=== PATIENT | male | born 1990 | race Caucasian/White ===

== ENCOUNTER 2018-02-23 20:09 | Emergency (ER) | payer SELFPAY ==
--- NOTE | 2018-02-23 20:47 | ER ---
Nurse's Notes [facility] Name: Miller Mullen Age: 27 yrs Sex: Male : 1990 Arrival Date: 02/23/2018 Time: 20:11 Bed 23 Private MD: Diagnosis: Low back pain Presentation: 02/23 20:11 Presenting complaint: Patient states: he was helping his grandmother move yesterday and ak1 lifted something heavy causing left lower back pain. pt stated he left [facility] to come here tonight, denies being seen. pt stated he had someone drop him off here tonight. Transition of care: patient was not received from another setting of care. Onset of symptoms was February 22, 2018. Risk Assessment: Do you want to hurt yourself or someone else? Patient reports no desire to harm self or others. Initial Sepsis Screen: Does the patient have a suspected source of infection? No. Patient's initial sepsis screen is negative. Initial Sepsis Screen: Does the patient meet any 2 criteria? No. Patient's initial sepsis screen is negative. Care prior to arrival: None. 20:11 Method Of Arrival: Ambulatory ak1 20:11 Acuity: MT 4 ak1 Triage Assessment: 20:15 General: Appears in no apparent distress. Behavior is calm, cooperative. Pain: ak1 Complains of pain in lumbar area, left low back and right low back. EENT: No signs and/or symptoms were reported regarding the EENT system. Neuro: No deficits noted. Cardiovascular: No deficits noted. Respiratory: No deficits noted. GI: No signs and/or symptoms were reported involving the gastrointestinal system. : No signs and/or symptoms were reported regarding the genitourinary system. Derm: No signs and/or symptoms reported regarding the dermatologic system. Musculoskeletal: Reports pain in lower back. Historical: - Allergies: 20:17 Ultram; pt stated headache if he takes ultram; ak1 - Home Meds: 20:15 None [Active]; ak1 - PMHx: 20:15 None; ak1 - PSHx: 20:15 Ear Tubes; ak1 - Immunization history:: Adult Immunizations unknown. - Social history:: Smoking status: Patient uses tobacco products, smokes one-half pack cigarettes per day. - Ebola Screening: : No symptoms or risks identified at this time. Screenin:17 Abuse screen: Denies threats or abuse. Denies injuries from another. Nutritional ak1 screening: No deficits noted. Tuberculosis screening: No symptoms or risk factors identified. Fall Risk None identified. Assessment: 20:26 General: Appears distressed, uncomfortable, slender, well groomed, well developed, iw emaciated. Pain: Complains of pain in left leg and back and left low back. Neuro: Level of Consciousness is awake, alert, obeys commands, Oriented to person, place, time, situation, Appropriate for age. Cardiovascular: Patient's skin is warm and dry. Respiratory: Airway is patent Respiratory effort is even, unlabored, Respiratory pattern is regular, symmetrical. GI: No signs and/or symptoms were reported involving the gastrointestinal system. : No signs and/or symptoms were reported regarding the genitourinary system. EENT: No signs and/or symptoms were reported regarding the EENT system. Derm: No signs and/or symptoms reported regarding the dermatologic system. Musculoskeletal: Reports since yesterday. Injury Description: pt was lifting boxes while helping his grandmother move and injured his left lower back, pain shoots down left leg. Vital Signs: 20:16 BP 141 / 98; Pulse 92; Resp 16; Temp 98.8(O); Pulse Ox 99% on R/A; Weight 117.93 kg ak1 (R); Height 6 ft. 6 in. (198.12 cm) (R); Pain 10/10; 20:26 BP 148 / 98; Pulse 92; Resp 18; Pulse Ox 99% ; iw 20:16 Body Mass Index 30.05 (117.93 kg, 198.12 cm) ak1 ED Course: 20:11 Patient arrived in ED. ak1 20:15 Triage completed. ak1 20:16 Lilibeth Balderas FNP-C is PHCP. kb 20:16 Anderson Nunez MD is Attending Physician. kb 20:16 Arm band placed on Patient placed in an exam room, on a stretcher, Patient notified of ak1 wait time. 20:18 Tracey Tyler, SIENA is Primary Nurse. iw 21:24 No provider procedures requiring assistance completed. Patient did not have IV access mg2 during this emergency room visit. 21:25 Patient has correct armband on for positive identification. Pulse ox on. mg2 Administered Medications: 21:11 Drug: TORadol 60 mg Route: IM; Site: right gluteus; mg2 21:12 Follow up: Response: No adverse reaction; Medication administered at discharge. mg2 21:11 Drug: [place] 10 mg-325 mg 1 tabs Route: PO; mg2 21:12 Follow up: Response: No adverse reaction; Medication administered at discharge. mg2 Outcome: 20:46 Discharge ordered by MD. long 21:24 Discharged to home ambulatory. mg2 21:24 Condition: stable 21:24 Discharge instructions given to patient, Instructed on discharge instructions, follow up and referral plans. Demonstrated understanding of instructions, follow-up care, medications, Prescriptions given X 2. 21:25 Patient left the ED. mg2 Signatures: Lilibeth Baledras, DAIRY HELPER-C DAIRY HELPER-CkTracey Moyer RN RN iw Andree Morocho RN RN ak1 Ty Guadalupe RN RN mg2 Corrections: (The following items were deleted from the chart) 20:17 20:15 Allergies: No Known Allergies; ak1 ak1 21:26 21:19 Patient left the ED. iw mg2
--- NOTE | 2018-02-23 20:47 | EDPHYS ---
Physician Documentation [facility] Name: Miller Mullen Age: 27 yrs Sex: Male : 1990 Arrival Date: 02/23/2018 Time: 20:11 Bed 23 Private MD: ED Physician Anderson Nunez HPI: 02/23 20:37 This 27 yrs old Male presents to ER via Ambulatory with complaints of Low kb Back Pain. 20:37 The patient presents with pain that is acute. The symptoms are located in the left low kb back and left mid back. The pain radiates to the left leg. The problem was sustained when lifting heavy object. Onset: The symptoms/episode began/occurred yesterday. Modifying factors: The patient symptoms are alleviated by nothing, the patient symptoms are aggravated by any movement. Associated signs and symptoms: The patient has no apparent associated signs or symptoms. Severity of symptoms: At their worst the symptoms were moderate, in the emergency department the symptoms are unchanged. The patient has not experienced similar symptoms in the past. The patient has not recently seen a physician. Historical: - Allergies: 20:17 Ultram; pt stated headache if he takes ultram; ak1 - Home Meds: 20:15 None [Active]; ak1 - PMHx: 20:15 None; ak1 - PSHx: 20:15 Ear Tubes; ak1 - Immunization history:: Adult Immunizations unknown. - Social history:: Smoking status: Patient uses tobacco products, smokes one-half pack cigarettes per day. - Ebola Screening: : No symptoms or risks identified at this time. ROS: 20:39 Constitutional: Negative for fever, chills, and weight loss, Cardiovascular: Negative kb for chest pain, palpitations, and edema, Respiratory: Negative for shortness of breath, cough, wheezing, and pleuritic chest pain, Abdomen/GI: Negative for abdominal pain, nausea, vomiting, diarrhea, and constipation, : Negative for injury, bleeding, discharge, and swelling, MS/Extremity: Negative for injury and deformity, Skin: Negative for injury, rash, and discoloration, Neuro: Negative for headache, weakness, numbness, tingling, and seizure. 20:39 Back: Positive for pain at rest, pain with movement, of the left low back and left mid back. Exam: 20:44 Constitutional: This is a well developed, well nourished patient who is awake, alert, kb and in no acute distress. Head/Face: Normocephalic, atraumatic. Chest/axilla: Normal chest wall appearance and motion. Nontender with no deformity. No lesions are appreciated. Cardiovascular: Regular rate and rhythm with a normal S1 and S2. No gallops, murmurs, or rubs. Normal PMI, no JVD. No pulse deficits. Respiratory: Lungs have equal breath sounds bilaterally, clear to auscultation and percussion. No rales, rhonchi or wheezes noted. No increased work of breathing, no retractions or nasal flaring. Abdomen/GI: Soft, non-tender, with normal bowel sounds. No distension or tympany. No guarding or rebound. No evidence of tenderness throughout. Skin: Warm, dry with normal turgor. Normal color with no rashes, no lesions, and no evidence of cellulitis. MS/ Extremity: Pulses equal, no cyanosis. Neurovascular intact. Full, normal range of motion. Neuro: Awake and alert, GCS 15, oriented to person, place, time, and situation. Cranial nerves II-XII grossly intact. Motor strength 5/5 in all extremities. Sensory grossly intact. Cerebellar exam normal. Normal gait. 20:44 Back: pain, that is moderate, of the left low back and left mid back, ROM is painful. Vital Signs: 20:16 BP 141 / 98; Pulse 92; Resp 16; Temp 98.8(O); Pulse Ox 99% on R/A; Weight 117.93 kg ak1 (R); Height 6 ft. 6 in. (198.12 cm) (R); Pain 10/10; 20:26 BP 148 / 98; Pulse 92; Resp 18; Pulse Ox 99% ; iw 20:16 Body Mass Index 30.05 (117.93 kg, 198.12 cm) ak1 MDM: 20:18 Patient medically screened. kb 20:44 Data reviewed: vital signs, nurses notes. Data interpreted: Pulse oximetry: on room air kb is 99 %. Interpretation: normal. Counseling: I had a detailed discussion with the patient and/or guardian regarding: the historical points, exam findings, and any diagnostic results supporting the discharge/admit diagnosis, the need for outpatient follow up, a family practitioner, to return to the emergency department if symptoms worsen or persist or if there are any questions or concerns that arise at home. Administered Medications: 21:11 Drug: TORadol 60 mg Route: IM; Site: right gluteus; mg2 21:12 Follow up: Response: No adverse reaction; Medication administered at discharge. mg2 21:11 Drug: [place] 10 mg-325 mg 1 tabs Route: PO; mg2 21:12 Follow up: Response: No adverse reaction; Medication administered at discharge. mg2 Disposition: 02/24 06:43 Co-signature as Attending Physician, Anderson Nunez MD I agree with the assessment and tre plan of care. Disposition: 02/23/18 20:46 Discharged to Home. Impression: Low back pain. - Condition is Stable. - Discharge Instructions: Back Pain, Adult, [id number]. - Prescriptions for Cyclobenzaprine 10 mg Oral Tablet - take 1 tablet by ORAL route every 8 hours As needed; 21 tablet. Diclofenac Sodium 75 mg Oral Tablet, Delayed Release (E.C.) - take 1 tablet by ORAL route 2 times per day As needed; 30 tablet. - Medication Reconciliation Form, Thank You Letter, Antibiotic Education, Prescription Opioid Use form. - Follow up: Emergency Department; When: As needed; Reason: Worsening of condition. Follow up: Private Physician; When: 2 - 3 days; Reason: Recheck today's complaints, Continuance of care, Re-evaluation by your physician. Signatures: Lilibeth Balderas, PRODUCTION FINISHER-C PRODUCTION FINISHER-Anderson Broosk MD MD cha Williams, Irene RN SIENA iw Andree Morocho RN RN ak1 Ty Guadalupe RN RN mg2 Corrections: (The following items were deleted from the chart) 02/23 20:17 20:15 Allergies: No Known Allergies; ak1 ak1 20:44 20:37 The symptoms are located in the lumbar area and left low back, kb kb 21:19 20:46 02/23/2018 20:46 Discharged to Home. Impression: Low back pain. Condition is iw Stable. Forms are Medication Reconciliation Form, Thank You Letter, Antibiotic Education, Prescription Opioid Use. Follow up: Emergency Department; When: As needed; Reason: Worsening of condition. Follow up: Private Physician; When: 2 - 3 days; Reason: Recheck today's complaints, Continuance of care, Re-evaluation by your physician. kb
[2018-02-23] MEDS ORDERED: HYDROCODONE/APAP 10/325 TAB ONE (20:58)
[2018-02-23] MEDS ORDERED: KETOROLAC 30 MG/ML INJ ONE (20:58)
== END 2018-02-23 21:19 | disposition home or self-care (01) ==
LOC: ER 20:09
DX: M54.5 Low back pain (principal); F17.210 Nicotine dependence, cigarettes, uncomplicated
CPT/HCPCS: 96372; 99283

== ENCOUNTER 2019-11-10 18:16 | Emergency (ER) | payer OTHER, SELFPAY ==
--- OUTSIDE RECORDS SUMMARY | 2019-11-10 18:18 | XMS REPORT | Continuity of Care Document ---
:1990 Author Organization [facility] t Address [address] [place] [place] [address] Care Team Providers Name Role Phone Singer PAGE Attending Clinician Dc WREN, M Attending Clinician Unavailable Problems This patient has no known problems. Allergies, Adverse Reactions, Alerts This patient has no known allergies or adverse reactions. Medications This patient has no known medications. Procedures This patient has no known procedures. Encounters Start End Encounter Admission Attending Care Care Encounter Source Date/Time Date/Time Type Type Clinicians Facility Department ID 2019-09-24 2019-09-24 Emergency EVANS Flowers [id number] 15:40:58 19:38:00 Oswaldo Yeh [id number] [place] [id number] [place] [id number] 2019-09-24 2019-09-24 Telephone YENNIFER Irwin [id number] 00:00:00 00:00:00 Dorcas CAPUTO [id number] [facility] [id number] Results This patient has no known results.
--- OUTSIDE RECORDS SUMMARY | 2019-11-10 18:19 | XMS REPORT | Summary of Care ---
:1990 Author Organization [facility] - Health Address [address] [place], [place] [id number] Care Team Providers Name Role Phone Harinder Shea Primary Care Provider Reason for Visit Reason Comments Anxiety Medication Problem Auth/Cert Status Reason Specialty Diagnoses / Referred By Referred To Procedures Contact Contact Emergency Medicine [facility] Em ergency Dept [address] [place] [address] [place] [phone] Fax: Encounter Details Date Type Department Care Team Description 09/24/2019 Emergency ADC-Emergency Oswaldo Flowers DO Toxic effect of other Department [address] [place] [address]. ingested (parts of) [address] [place] [address] RT 0711 plant(s), accidental [place] [phone] [place] [phone] (unintentional), initial encounter (Primary Dx) Allergies Active Allergy Reactions Severity Noted Date Comments Dextromethorphan Hives 10/17/2018 documented as of this encounter (statuses as of 09/24/2019) Medications Medication Sig Dispensed Refills Start Date End Date Status azithromycin 250 mg Take 1 tablet by 1 Package 0 10/06/2018 Active tabletIndications: mouth Bronchitis SEE-INSTRUCTIONS. Take 500 mg day 1, then 250 mg days 2 to 5. albuterol 90 Inhale 2 Puffs 8.5 g 0 10/06/2018 A ctive mcg/actuation every 6 (six) inhalerIndications: hours as needed Bronchitis for Wheezing or Shortness of Breath. traMADOL (ULTRAM) 50 Take 1 tablet by 9 tablet 0 10/17/2018 Active mg tabletIndications: mouth every 8 Injury of right knee, (eight) hours as leg ankle and foot, needed for Pain initial encounter, (scale 4-6). Sprain of right ankle, unspecified ligament, initial encounter documented as of this encounter (statuses as of 09/24/2019) Active Problems Problem Noted Date Toxic effect of other ingested (parts of) plant(s), un determined, initial 09/24/2019 encounter Fever 01/15/2015 documented as of this encounter (statuses as of 09/24/2019) Social History Tobacco Use Types Packs/Day Years Used Date Never Smoker Smokeless Tobacco: Former User Alcohol Use Drinks/Week oz/Week Comments No 0 Standard drinks or equivalent 0.0 Sex Assigned at Date Recorded Not on file Job Start Date Occupation Industry Not on file Not on file Not on file Travel History Travel Start Travel End No recent travel history available. COVID-19 Exposure Response Date Recorded In the last month, have you been in contact with No / Unsure 09/24/2019 3:31 PM CDT someone who was confirmed or suspected to have Coronavirus / COVID-19? documented as of this encounter Last Filed Vital Signs Vital Sign Reading Time Taken Comments Blood Pressure 143/98 09/24/2019 6:00 PM CDT Pulse 101 09/24/2019 6:00 PM CDT Temperature 36.9 C (98.5 F) 09/24/2019 3:29 PM CDT Respiratory Rate 16 09/24/2019 6:00 PM CDT Oxygen Saturation 96% 09/24/2019 6:00 PM CDT Inhaled Oxygen Concentration - - Weight 125.2 kg (276 lb) 09/24/2019 3:29 PM CDT Height 195.6 cm (6' 5") 09/24/2019 3:29 PM CDT Body Mass Index 32.73 09/24/2019 3:29 PM CDT documented in this encounter Plan of Treatment Name Type Priority Associated Diagnoses Date/Ti me CORONAVIRUS COVID-19 LAB Routine Toxic effect of othe r 09/24/2019 7:07 PM TESTING ingested (parts of) CDT plant(s), accidental (unintentional), initial encounter Name Type Priority Associated Diagnoses Order S chedule CORONAVIRUS COVID-19 LAB Routine Toxic effect of othe r ONCE for 1 Occurrences TESTING ingested (parts of) starting 09/24/2019 plant(s), accidental until 0 09/24/2019 (unintentional), initial encounter Health Maintenance Due Date Last Done Comments VARICELLA VACCINES (1 of 2 - 13+ 2005 2-dose series) DTaP,Tdap,and Td Vaccines (1 - 2011 Tdap) INFLUENZA VACCINE (#1) 2019 HPV VACCINES Aged Out No longer eligib le based on patient's age to complete this topic PNEUMOCOCCAL 0-64 YEARS COMBINED Aged Out No longer eligible based on SERIES patient's age to complete this topic documented as of this encounter Procedures Procedure Name Priority Date/Time Associated Comments Diagnosis ADC / LCC - DRUG STAT 09/24/2019 7:07 Toxic effect of Resu lts for this SCREEN TRIAGE PM CDT other ingested procedure ar e in (parts of) the results plant(s), section. accidental (unintentional), initial encounter URINALYSIS STAT 09/24/2019 7:07 Toxic effect of Results for this PM CDT other ingested procedure are in (parts of) the results plant(s), section. accidental (unintentional), initial encounter CBC WITH DIFFERENTIAL STAT 09/24/2019 4:20 Toxic effect of Results for this PM CDT other ingested procedure are in (parts of) the results plant(s), section. accidental (unintentional), initial encounter CBC WITH DIFFERENTIAL STAT 09/24/2019 4:20 Toxic effect of Results for this PM CDT other ingested procedure are in (parts of) the results plant(s), section. accidental (unintentional), initial encounter COMP. METABOLIC PANEL STAT 09/24/2019 4:20 Toxic effect of Results for this (21506) PM CDT other ingested procedure are in (parts of) the results plant(s), section. accidental (unintentional), initial encounter documented in this encounter Results ADC / LCC - DRUG SCREEN TRIAGE (09/24/2019 7:07 PM CDT) BENZO U Presumptive Negative [facility] Positive (A) [facility] BELKIS U Negative Negative [facility] AMPHET Negative Negative [facility] THC Negative Negative [facility] METHADONE Negative Negative [facility] Meth U Negative Negative [facility] OPIATES Negative Negative [facility] Cocaine Metabolite Negative Negative [facility] PROPOXY Negative Negative [facility] Tric U Negative Negative [facility] PCP Negative Negative [facility] OXYCOD Negative Negative [facility] Specimen Urine - URINE, CLEAN CATCH Narrative Performed At Urine Drug Cutoff Ranges [facility] Benzodiazepines: 150 ng/mL Barbiturates: 200 ng/mL Amphetamine: 500 ng/mL Cannabinoids: 50 ng/mL Methadone: 200 ng/mL Methamphetamine: 500 ng/mL Opiates: 100 ng/mL or 2000 ng/mL Cocaine: 150 ng/mL Propoxyphene: 300 ng/mL Tricyclics: 300 ng/mL Oxycodone: 100 ng/mL PCP: 25 ng/mL The results are to be used only for medical (i.e., treatment) purposes. Unconfirmed screening results must not be used for non-medical purposes (e.g., employment testing, legal testing). Performing Organization Address [facility] [place], [place] Phone Number [facility] CLIA: [id number], [address] [place] [address] URINALYSIS (09/24/2019 7:07 PM CDT) Pathologist Sig nature APPEARANCE Clear Clear [facility] COLOR Straw (A) Yellow [facility] PH 6.0 4.8 - 8.0 [facility] SP GRAVITY 1.006 1.003 - 1.030 [facility] GLU U QUAL Normal Normal [facility] BLOOD Negative Negative [facility] KETONES 5 mg/dL (A) Negative [facility] PROTEIN Negative Negative [facility] UROBILIN Normal Normal [facility] BILIRUBIN Negative Negative [facility] NITRITE Negative Negative [facility] LEUK EVELIO Negative Negative [facility] RBC/HPF <1 0 - 3 HPF [facility] WBC/HPF <1 0 - 5 HPF [facility] BACTERIA Negative Negative [facility] SQ EPITH <1 HPF [facility] Specimen Urine - URINE, CLEAN CATCH Performing Organization Address [facility] [place], [place] Phone Number [facility] CLIA: [id number], [address] [place] [address] CBC WITH DIFFERENTIAL (09/24/2019 4:20 PM CDT) [facility] WBC 5.88 4.20 - 10.70 [facility] 10*3/L H[facility] RBC 5.01 4.26 - 5.52 [facility] 10*6/L [facility] LABOR[facility]ORY HGB 15.4 12.2 - 16.4 [facility] g/dL [facility] HCT 43.8 38.4 - 49.3 % [facility] MCV 87.4 81.7 - 95.6 fL [facility] MCH 30.7 26.1 - 32.7 pg [facility] MCHC 35.2 (H) 31.2 - 35.0 [facility] g/dL [facility] LAB[facility] RDW-SD 40.9 38.5 - 51.6 fL [facility] RDW-CV 12.8 12.1 - 15.4 % [facility] PLT 266 150 - 328 [facility] 10*3/L [facility] LABORATORY MPV 10.4 9.8 - 13.0 fL [facility] NRBC/100 WBC 0.0 0.0 - 10.0 /100 [facility] WBCs [facility] LABORATORY NRBC x10^3 <0.01 10*3/L [facility] GRAN MAT (NEUT) % 54.1 % [facility] IMM GRAN % 0.20 % [facility] LYMPH % 35.5 % [facility] MONO % 9.2 % [facility] EOS % 0.7 % [facility] BASO % 0.3 % [facility] GRAN MAT x10^3(ANC) 3.18 1.99 - 6.95 [facility] 10*3/uL HOSPITAL LAB[facility] IMM GRAN x10^3 <0.03 0.00 - 0.06 [facility] 10*3/uL [facility] LYMPH x10^3 2.09 1.09 - 3.23 [facility] 10*3/uL [facility] MONO x10^3 0.54 0.36 - 1.02 [facility] 10*3/uL H[facility]ITAL [facility] EOS x10^3 0.04 (L) 0.06 - 0.53 [facility] 10*3/uL [facility] LABORATORY BASO x10^3 <0.03 0.01 - 0.09 [facility] 10*3/uL [facility] LABORATORY Specimen Blood - VENOUS Performing Organization Address City/State/Zipcode Phone Number [facility] CLIA: [id number], [address] [place] [address] COMP. METABOLIC PANEL (67454) (09/24/2019 4:20 PM CDT) [facility] NA 141 135 - 145 [facility] mmol/L [facility] LABORATORY K 3.7 3.5 - 5.0 [facility] mmol/L [facility] LABORATORY CL 106 98 - 108 mmol/L [facility] CO2 TOTAL 24 23 - 31 mmol/L [facility] AGAP 11 2 - 16 [facility] BUN 16 7 - 23 mg/dL [facility] GLUCOSE 128 (H) 70 - 110 mg/dL [facility] CREATININE 0.91 0.60 - 1.25 [facility] mg/dL [facility] LABORATORY TOTAL BILI 0.5 0.1 - 1.1 mg/dL [facility] CALCIUM 9.9 8.6 - 10.6 [facility] mg/dL [facility] LABORATORY T PROTEIN 8.2 6.3 - 8.2 g/dL [facility] ALBUMIN 5.0 3.5 - 5.0 g/dL [facility] ALK PHOS 78 34 - 122 U/L [facility] ALTv 35 5 - 50 U/L [facility] AST(SGOT) 30 13 - 40 U/L [facility] eGFR Calculation 99.9 mL/min/1.73m2 [facility] ([facility] LABORATORY [place]) eGFR Calculation 121.1 mL/min/1.73m2 [facility] () [facility] LABORATORY Specimen Blood - VENOUS Narrative Performed At Association of Glomerular Filtration Rate (GFR) [facility] LAB[facility] and Staging of Kidney Disease* + + +- + | GFR (mL/min/1.73 m2) | With Kidney Damage | Without Kidney Damage + + +- + | >90 | Stage one | Normal + + +- + | 60-89 | Stage two | Decreased GFR + + +- + | 30-59 | Stage three | Stage three + + +- + | 15-29 | Stage four | Stage four + + +- + | <15 (or dialysis) | Stage five | Stage five + + +- + *Each stage assumes the associated GFR level has been in effect for at least three months. Stages 1 to 5, with or without kidney disease, indicate chronic kidney disease. Notes: Determination of stages one and two (with eGFR >59mL/min/1.73 m2) requires estimation of kidney damage for at least three months as defined by structural or functional abnormalities of the kidney, manifested by either: Pathological abnormalities or Markers of kidney damage (including abnormalities in the composition of the blood or urine or abnormalities in imaging tests). Performing Organization Address City/State/Zipcode Phone Number [facility] CLIA: [id number], [address] [place], [place] [address] [facility] [address] documented in this encounter Visit Diagnoses Diagnosis Toxic effect of other ingested (parts of ) plant(s), accidental (unintentional), initial encounter - Primary Toxic effect of other ingested (parts of ) plant(s), undetermined, initial encounter documented in this encounter Administered Medications Medication Order MAR Action Action Date Dose Rate Site LORazepam (ATIVAN) injection 1 mg Given 09/24/2019 4:24 PM CDT 1 mg 1 mg, Slow IV Push, ONCE, 1 dose, [facility] 09/24/19 at 1700, STAT LORazepam (ATIVAN) injection 1 mg Given 09/24/2019 6:43 PM CDT 1 mg 1 mg, Slow IV Push, ONCE, 1 dose, [facility] 09/24/19 at 1930, STAT LORazepam (ATIVAN) injection 2 mg Given 09/24/2019 5:00 PM CDT 2 mg 2 mg, Slow IV Push, ONCE, 1 dose, [facility] 09/24/19 at 1800, STAT LORazepam (ATIVAN) injection 2 mg Given 09/24/2019 5:53 PM CDT 2 mg 2 mg, Slow IV Push, ONCE, 1 dose, [facility] 09/24/19 at 1900, STAT NaCl 0.9% (NS) bolus infusion New Bag 09/24/2019 4:19 PM CDT 1,000 mL 999 mL/hr 1,000 mL at 999 mL/hr, 1,000 mL, IV Piggyback, ONCE, 1 dose, [facility] 09/24/19 at 1700, STAT documented in this encounter documented as of this encounter Advance Directives Name Relationship Healthcare Agent Communication Relationship Lacy Ken Mother Primary healthcare agent
--- OUTSIDE RECORDS SUMMARY | 2019-11-10 18:19 | XMS REPORT | Summary of Care ---
:1990 Author Organization [facility] Address [address] [place] [address] Care Team Providers Name Role Phone ShabbirHarinder Primary Care Provider Reason for Visit Reason Comments Results covid 19 test results Encounter Details Date Type Department Care Team Description 09/24/2019 Telephone [facility] Dorcas Irwin, Results (covid [address] [place] [address] RN results) [address] [address] [place] [address] Allergies Active Allergy Reactions Severity Noted Date [...] of this encounter Last Filed Vital Signs Not on filedocumented in this encounter Plan of Treatment Health Maintenance Due Date Last Done Comments VARICELLA VACCINES (1 of 2 - 1993 2-dose childhood series) DTaP,Tdap,and Td Vaccines (1 - 2003 Tdap) INFLUENZA VACCINE (#1) 2019 PNEUMOCOCCAL 0-64 YEARS COMBINED Aged Out No longer eligible based on SERIES patient's age to complete this topic documented as of this encounter Results Not on filedocumented in this encounter Insurance Payer Benefit Plan / Group Subscriber ID Effective Dates Phone Address Type AETNA AETNA CHOICE POS [place] [id number] 2018-Present POS documented as of this encounter Advance Directives Name Relationship Healthcare Agent Communication Relationship Lacy Ken Mother Primary healthcare agent
[2019-11-10] MEDS ORDERED: NA CHLORIDE 0.9% 50 ML IV ONE (19:24)
[2019-11-10] MEDS ORDERED: DIPHENHYDRAMINE 50 MG/ML VIAL ONE (19:24)
[2019-11-10] MEDS ORDERED: KETOROLAC 30 MG/ML INJ ONE (19:24)
[2019-11-10] MEDS ORDERED: METOCLOPRAMIDE 10 MG/2mL INJ ONE (19:24)
--- NOTE | 2019-11-10 19:35 | RAD REPORT ---
EXAM DESCRIPTION: CT - Head Brain Wo Cont - 11/10/2019 7:06 pm CLINICAL HISTORY: HEADACHE Headache, drowsiness COMPARISON: Head Brain Wo Cont dated 09/19/2015 TECHNIQUE: All CT scans are performed using dose optimization technique as appropriate and may inclu de automated exposure control or mA/KV adjustment according to patient size. FINDINGS: No intracranial hemorrhage, hydrocephalus or extra-axial fluid collection.No areas of brai n edema or evidence of midline shift. Mild polypoid mucosal thickening of the inferior maxillary antra. The paranasal sinuses and mastoids otherwise clear. The calvarium is intact. IMPRESSION: No acute intracranial abnormality.
[2019-11-10 21:24] LABS: Urine Blood TRACE (NEG); Urine Glucose NEGATIVE (NEG); Urine Protein 1+ (NEG); Urine Specific Gravity >1.030 (1.005-1.030); Urine pH 6.5 (5.0-7.0)
--- NOTE | 2019-11-10 21:39 | ER ---
Nurse's Notes [facility] Name: Miller Mullen Age: 29 yrs Sex: Male : 1990 Arrival Date: 11/10/2019 Time: 18:19 Bed 27 Private MD: Diagnosis: Acute sinusitis;Epistaxis Presentation: 11/09 18:22 Chief complaint: Patient states: CABAN with nose bleeds int for 3 days. Started having N/V ll1 dizziness since 0300 today. No thermometer at home. Coronavirus screen: Proceed with normal triage. Patient denies a cough. Patient denies shortness of breath or difficulty breathing. Patient denies measured and/or subjective temperature greater than 100.4F prior to today's visit. Patient denies travel on a cruise ship or to a country the [facility] currently lists as an affected area. Patient denies contact with known and/or suspected case of COVID-19. Ebola Screen: Patient denies travel to an Ebola-affected area in the 21 days before illness onset. Initial Sepsis Screen: Does the patient meet any 2 criteria? No. Patient's initial sepsis screen is negative. Risk Assessment: Do you want to hurt yourself or someone else? Patient reports no desire to harm self or others. Onset of symptoms was November 07, 2019. 18:22 Method Of Arrival: Ambulatory ll1 18:22 Acuity: MT 3 ll1 18:30 Initial Sepsis Screen: Does the patient have a suspected source of infection? No. vc Patient's initial sepsis screen is negative. Triage Assessment: 18:30 Headache History: The patient has had previous headaches and this one is more severe vc than previous episodes. General: Appears in no apparent distress. Behavior is calm, cooperative, appropriate for age. Pain: Complains of pain in forehead, right eye, left eye, right yazdanism and left yazdanism Pain currently is 8 out of 10 on a pain scale. Quality of pain is described as sharp, stabbing, Pain began 2-3 days ago. Also complains of nausea. 18:30 Neuro: Level of Consciousness is awake, alert, obeys commands, Oriented to person, vc place, time, situation, Appropriate for age. Historical: - Allergies: 18:25 Ultram; pt stated headache if he takes ultram; ll1 - PSHx: 18:25 Ear Tubes; ll1 - Immunization history:: Adult Immunizations up to date. - Social history:: Smoking status: Patient denies any tobacco usage or history of. Patient/guardian denies using alcohol, street drugs, tobacco products. Screenin:30 Abuse screen: Denies threats or abuse. Nutritional screening: No deficits noted. vc Tuberculosis screening: No symptoms or risk factors identified. Fall Risk None identified. Assessment: 18:30 General: Appears in no apparent distress. uncomfortable, Behavior is calm, cooperative, vc appropriate for age. Pain: Complains of pain in left yazdanism and right yazdanism and left eye and right eye and forehead. Neuro: Level of Consciousness is awake, alert, obeys commands, Oriented to person, place, time, situation, Appropriate for age. Cardiovascular: Capillary refill < 3 seconds Patient's skin is warm and dry. Respiratory: Airway is patent Respiratory effort is even, unlabored, Respiratory pattern is regular, symmetrical. GI: Reports nausea, vomiting. : No signs and/or symptoms were reported regarding the genitourinary system. Derm: No signs and/or symptoms reported regarding the dermatologic system. 19:30 Reassessment: Patient appears in no apparent distress at this time. Patient and/or vc family updated on plan of care and expected duration. Pain level reassessed. Patient states symptoms have not improved. 20:30 Reassessment: Patient appears in no apparent distress at this time. Patient and/or vc family updated on plan of care and expected duration. Pain level reassessed. Patient states feeling better. Patient states symptoms have improved. 21:14 Reassessment: Patient appears in no apparent distress at this time. Patient and/or vc family updated on plan of care and expected duration. Pain level reassessed. Patient states feeling better. 21:45 Reassessment: Patient discharge pending shot time. vc 22:00 Reassessment: Patient appears in no apparent distress at this time. Patient and/or vc family updated on plan of care and expected duration. Pain level reassessed. Patient denies pain at this time. Patient states feeling better. Patient states symptoms have improved. Vital Signs: 18:22 Pulse 75; Resp 18; Temp 98.0; Pulse Ox 97% ; Pain 8/10; ll1 21:30 BP 127 / 98; Pulse 75; Resp 18; Pulse Ox 99% on R/A; vc ED Course: 18:19 Patient arrived in ED. ag5 18:24 Triage completed. ll1 18:25 Arm band placed on Patient placed in an exam room, on a stretcher. ll1 18:30 Patient has correct armband on for positive identification. Bed in low position. Call vc light in reach. Pulse ox on. NIBP on. 18:35 Carolyn Guillen RN is Primary Nurse. vc 18:42 Rasheed Recinos NP is PHCP. pm1 18:42 Anderson Nunez MD is Attending Physician. pm1 19:04 CT Head Brain wo Cont In Process Unspecified. EDMS 22:05 No provider procedures requiring assistance completed. IV discontinued, intact, vc bleeding controlled, No redness/swelling at site. Pressure dressing applied. Administered Medications: 19:34 Drug: Reglan 10 mg Route: IVP; Site: right antecubital; vc 21:30 Follow up: Response: No adverse reaction; Marked relief of symptoms vc 19:34 Drug: Benadryl 25 mg Route: IVP; Site: right antecubital; vc 23:06 Follow up: Response: No adverse reaction vc 19:34 Drug: TORadol 30 mg Route: IVP; Site: right antecubital; vc 21:30 Follow up: Response: No adverse reaction; Marked relief of symptoms vc 21:45 Drug: Rocephin 1 grams Route: IV; Rate: calculated rate; Site: right antecubital; vc 21:48 Follow up: IV Status: Completed infusion; IV Intake: 10ml vc Intake: 21:48 IV: 10ml; Total: 10ml. vc Outcome: 21:38 Discharge ordered by . pm1 22:05 Discharged to home ambulatory, with family. vc 22:05 Condition: good 22:05 Discharge instructions given to patient, Instructed on discharge instructions, follow up and referral plans. medication usage, Demonstrated understanding of instructions, follow-up care, medications, Prescriptions given X 3. 22:06 Patient left the ED. vc Signatures: Dispatcher [employer] EDMS Rasheed Recinos, [employer] RECEPTIONIST pm1 Fareed Garsia ag5 Carolyn Guillen RN RN vc Christnia Miller RN RN ll1
--- NOTE | 2019-11-10 21:39 | EDPHYS ---
Physician Documentation [facility] Name: Milelr Mullen Age: 29 yrs Sex: Male : 1990 Arrival Date: 11/10/2019 Time: 18:19 Bed 27 Private MD: ED Physician Anderson Nunez HPI: 11/09 18:52 This 29 yrs old Male presents to ER via Ambulatory with complaints of Nose pm1 Bleed, Headache, Dizziness, Nausea/Vomiting. 18:52 The patient presents with a nose bleed, causative factors include: previous HX of pm1 nosebleeds, as a child and the bleeding resolved prior to arrival, left nare. Onset: The symptoms/episode began/occurred 3 day(s) ago. Modifying factors: The symptoms are alleviated by pressure, the symptoms are aggravated by nothing. Associated signs and symptoms: Pertinent positives: Headache for the past 3 days. Nausea, vomiting, and dizziness today at 0300. Severity of symptoms: in the emergency department the symptoms are worse Pain is currently a 8 / 10. The patient has not recently seen a physician. Patient also reports dark urine today. Historical: - Allergies: 18:25 Ultram; pt stated headache if he takes ultram; ll1 - PSHx: 18:25 Ear Tubes; ll1 - Immunization history:: Adult Immunizations up to date. - Social history:: Smoking status: Patient denies any tobacco usage or history of. Patient/guardian denies using alcohol, street drugs, tobacco products. ROS: 18:52 Constitutional: Negative for fever, chills, and weight loss, Eyes: Negative for injury, pm1 pain, redness, and discharge. 18:52 Neck: Negative for injury, pain, and swelling, Cardiovascular: Negative for chest pain, palpitations, and edema, Respiratory: Negative for shortness of breath, cough, wheezing, and pleuritic chest pain. 18:52 Back: Negative for injury and pain, MS/Extremity: Negative for injury and deformity. 18:52 Skin: Negative for injury, rash, and discoloration. 18:52 ENT: Positive for nose bleed, sinus congestion, sinus pain, Negative for ear pain, sore throat, dental pain, difficulty swallowing, difficulty handling secretions, hoarseness. 18:52 Abdomen/GI: Positive for nausea and vomiting, Negative for abdominal pain, diarrhea, constipation. 18:52 : Positive for Dark urine, Negative for flank pain, burning with urination, difficulty urinating. 18:52 Neuro: Positive for dizziness, headache, Negative for altered mental status, numbness, tingling, weakness. Exam: 18:52 Constitutional: This is a well developed, well nourished patient who is awake, alert, pm1 and in no acute distress. Eyes: Pupils equal round and reactive to light, extra-ocular motions intact. Lids and lashes normal. Conjunctiva and sclera are non-icteric and not injected. Cornea within normal limits. Periorbital areas with no swelling, redness, or edema. 18:52 Neck: Trachea midline, no thyromegaly or masses palpated, and no cervical lymphadenopathy. Supple, full range of motion without nuchal rigidity, or vertebral point tenderness. No Meningismus. Chest/axilla: Normal chest wall appearance and motion. Nontender with no deformity. No lesions are appreciated. 18:52 Back: No spinal tenderness. No costovertebral tenderness. Full range of motion. Skin: Warm, dry with normal turgor. Normal color with no rashes, no lesions, and no evidence of cellulitis. MS/ Extremity: Pulses equal, no cyanosis. Neurovascular intact. Full, normal range of motion. 18:52 Head/face: Sinus tenderness, that is mild, is located over the left frontal sinus and left maxillary sinus. 18:52 ENT: External ear(s): are unremarkable, Ear canal(s): are normal, TM's: are normal, Nose: Nasal mucosa: edematous, erythematous, left nostril, bleeding, is not appreciated, is noted from both nares. 18:52 Cardiovascular: Exam negative for acute changes, Rate: normal, Rhythm: regular, Pulses: no pulse deficits are appreciated. 18:52 Respiratory: Exam negative for acute changes, respiratory distress, shortness of breath. 18:52 Abdomen/GI: Exam negative for acute changes, Inspection: abdomen appears normal, Palpation: abdomen is soft and non-tender, in all quadrants, mass, is not appreciated, rebound tenderness, is not appreciated. 18:52 Neuro: Exam negative for acute changes, Orientation: is normal, Mentation: is normal, Cranial nerves: grossly normal, Cerebellar function: normal finger to nose testing, Motor: is normal, moves all fours, Sensation: is normal, no obvious gross deficits. Vital Signs: 18:22 Pulse 75; Resp 18; Temp 98.0; Pulse Ox 97% ; Pain 8/10; ll1 21:30 BP 127 / 98; Pulse 75; Resp 18; Pulse Ox 99% on R/A; vc MDM: 18:42 Patient medically screened. pm1 21:05 Data reviewed: vital signs. Data interpreted: Pulse oximetry: on room air is 97 %. pm1 Interpretation: normal. 21:37 Counseling: I had a detailed discussion with the patient and/or guardian regarding: the pm1 historical points, exam findings, and any diagnostic results supporting the discharge/admit diagnosis, lab results, radiology results, the need for outpatient follow up, to return to the emergency department if symptoms worsen or persist or if there are any questions or concerns that arise at home. 21:57 Medication response: marked improvement in symptoms with medications given in the ER. pm1 Therefore will discharge to home for follow up with ENT. 21:57 ED course: CT positive for sinusitis, therefore with treat with abx therapy. pm1 11/09 21:03 Order name: Urine Dipstick--Ancillary (enter results); Complete Time: 21:37 sg 11/09 18:52 Order name: CT Head Brain wo Cont; Complete Time: 19:45 pm1 11/09 18:52 Order name: IV Saline Lock; Complete Time: 19:34 pm1 11/09 18:52 Order name: Urine Dipstick-Ancillary (obtain specimen); Complete Time: 21:02 pm1 Administered Medications: 19:34 Drug: Reglan 10 mg Route: IVP; Site: right antecubital; vc 21:30 Follow up: Response: No adverse reaction; Marked relief of symptoms vc 19:34 Drug: Benadryl 25 mg Route: IVP; Site: right antecubital; vc 23:06 Follow up: Response: No adverse reaction vc 19:34 Drug: TORadol 30 mg Route: IVP; Site: right antecubital; vc 21:30 Follow up: Response: No adverse reaction; Marked relief of symptoms vc 21:45 Drug: Rocephin 1 grams Route: IV; Rate: calculated rate; Site: right antecubital; vc 21:48 Follow up: IV Status: Completed infusion; IV Intake: 10ml vc Disposition: 11/10 05:32 Co-signature as Attending Physician, Anderson Nunez MD I agree with the assessment and tre plan of care. Disposition: 11/10/19 21:38 Discharged to Home. Impression: Acute sinusitis, Epistaxis. - Condition is Stable. - Discharge Instructions: Nosebleed, Adult, Sinusitis, Adult. - Prescriptions for Augmentin 875- 125 mg Oral Tablet - take 1 tablet by ORAL route every 12 hours for 10 days; 20 tablet. Zyrtec- D 5-120 mg Oral Tablet Sustained Release 12 hr - take 1 tablet by ORAL route every 12 hours As needed; 20 tablet. Zofran ODT 4 mg Oral tablet,disintegrating - place 1 tablet by TRANSLINGUAL route every 8 hours As needed; 10 tablet. - Medication Reconciliation Form, Thank You Letter, Antibiotic Education, Prescription Opioid Use form. - Work release form (11/11/19 13:54). ss - Follow up: Emergency Department; When: As needed; Reason: Worsening of condition. Follow up: Private Physician; When: 2 - 3 days; Reason: Recheck today's complaints, Continuance of care, Re-evaluation by your physician. - Problem is new. - Symptoms have improved. Signatures: Dispatcher [employer] EDMS Anderson Nunez MD MD cha Marinas, Patrick, TRAINING CONSULTANT TRAINING CONSULTANT pm1 Carolyn Guillen RN RN Christina Miller RN RN ll1 Kalyn Eldridge RN ss Corrections: (The following items were deleted from the chart) 11/09 22:06 21:38 11/10/2019 21:38 Discharged to Home. Impression: Acute sinusitis; Epistaxis. vc Condition is Stable. Forms are Medication Reconciliation Form, Thank You Letter, Antibiotic Education, Prescription Opioid Use. Follow up: Emergency Department; When: As needed; Reason: Worsening of condition. Follow up: Private Physician; When: 2 - 3 days; Reason: Recheck today's complaints, Continuance of care, Re-evaluation by your physician. Problem is new. Symptoms have improved. pm1
[2019-11-10] MEDS ORDERED: CEFTRIAXONE/SWI 1gm 1 GM/10 ML SYR ONE (21:51)
[2019-11-10 22:16] VITALS: TEMP 98
[2019-11-10 22:17] VITALS: BP 127/98; O2SAT 99
== END 2019-11-10 22:06 | disposition home or self-care (01) ==
LOC: ER 18:16
DX: J01.90 Acute sinusitis, unspecified (principal)
CPT/HCPCS: 81003; 70450; 96375; 96374; 99284; J2765; J1200; J0696

== ENCOUNTER 2020-07-29 17:34 | Emergency (ER) | payer SELFPAY ==
--- OUTSIDE RECORDS SUMMARY | 2020-07-29 17:37 | XMS REPORT | Continuity of Care Document ---
:1990 Author Organization [facility] t Address [address] [place] [address] Care Team Providers Name Role Phone Zoraida Summers MD Attending Clinician Tyrese Hoyos Attending Clinician Singer PAGE Attending Clinician Dc WREN, M Attending Clinician Unavailable Problems This patient has no known problems. Allergies, Adverse Reactions, Alerts This patient has no known allergies or adverse reactions. Medications This patient has no known medications. Procedures This patient has no known procedures. Encounters Start End Encounter Admission Attending Care Care Encounter Source Date/Time Date/Time Type Type Clinicians Facility Department ID 2020-04-20 2020-04-20 Emergency [facility] [id number] 20:31:00 20:46:00 Linda Zoraida Rao [id number] [place] [id number] [place] [id number] 2020-02-29 2020-02-29 [facility] [id number] 19:24:00 22:07:00 Meka Tyrese Rao [id number] [place] [id number] [place] [id number] 2019-09-24 2019-09-24 Emergency [facility] [id number] 15:40:58 19:38:00 Oswaldo Yeh [id number] [place] [id number] [place] [id number] 2019-09-24 2019-09-24 Telephone IrwinYENNIFER [id number] 00:00:00 00:00:00 Dorcas CAPUTO [id number] [facility] [id number] Results This patient has no known results.
--- NOTE | 2020-07-29 18:05 | EDPHYS ---
Physician Documentation [facility] Name: Miller Mullen Age: 30 yrs Sex: Male : 1990 Arrival Date: 07/29/2020 Time: 17:38 Bed 23 Private MD: ED Physician Tam Kitchen HPI: 07/29 18:02 This 30 yrs old Male presents to ER via Ambulatory with complaints of cp Epigastric Pain, hurts to take a breath. Historical: - Allergies: 17:46 Ultram; pt stated headache if he takes ultram; jd3 17:46 unknown other medication starting with a D.; jd3 - Home Meds: 17:46 Lisinopril Oral [Active]; jd3 - PMHx: 17:46 Hypertension; jd3 - PSHx: 17:46 Ear Tubes; jd3 - Immunization history:: Adult Immunizations up to date. - Social history:: Smoking status: Patient denies any tobacco usage or history of. Vital Signs: 17:46 BP 160 / 101; Pulse 91; Resp 17 S; Temp 98.1(TE); Pulse Ox 98% on R/A; Weight 131.54 kg jd3 (R); Height 6 ft. 5 in. (195.58 cm) (R); Pain 6/10; 17:46 Body Mass Index 34.39 (131.54 kg, 195.58 cm) jd3 MDM: 18:01 Patient medically screened. cp 18:02 ED course: VS noted. Patient left prior to interview and exam by provider. Patient cp refused treatment. Administered Medications: No medications were administered Disposition: 07/30 06:47 Co-signature as Attending Physician, Tam Kitchen MD I agree with the assessment and kdr plan of care. Disposition: 07/29/20 18:04 Patient left the facility post triage evaluation and consult. - Patient left due to unknown. Signatures: Tam Kitchen MD MD kdr Page, Corey, PA PA cp Davies, Jonathon RN RN jd3
--- NOTE | 2020-07-29 18:05 | ER ---
Nurse's Notes [facility] Name: Miller Mullen Age: 30 yrs Sex: Male : 1990 Arrival Date: 07/29/2020 Time: 17:38 Bed 23 Private MD: Diagnosis: Presentation: 07/29 17:43 Chief complaint: Patient states: "I am having this sharp pain in my upper stomach that jd3 comes to my right shoulder and back. it hurts to breath and I a, having some indigestion.". Coronavirus screen: At this time, the client does not indicate any symptoms associated with coronavirus-19. Ebola Screen: Patient negative for fever greater than or equal to 101.5 degrees Fahrenheit, and additional compatible Ebola Virus Disease symptoms. Initial Sepsis Screen: Does the patient meet any 2 criteria? No. Patient's initial sepsis screen is negative. Does the patient have a suspected source of infection? No. Patient's initial sepsis screen is negative. Risk Assessment: Do you want to hurt yourself or someone else? Patient reports no desire to harm self or others. Onset of symptoms was July 29, 2020. 17:43 Method Of Arrival: Ambulatory jd3 17:43 Acuity: MT 3 jd3 Historical: - Allergies: 17:46 Ultram; pt stated headache if he takes ultram; jd3 17:46 unknown other medication starting with a D.; jd3 - Home Meds: 17:46 Lisinopril Oral [Active]; jd3 - PMHx: 17:46 Hypertension; jd3 - PSHx: 17:46 Ear Tubes; jd3 - Immunization history:: Adult Immunizations up to date. - Social history:: Smoking status: Patient denies any tobacco usage or history of. Vital Signs: 17:46 BP 160 / 101; Pulse 91; Resp 17 S; Temp 98.1(TE); Pulse Ox 98% on R/A; Weight 131.54 kg jd3 (R); Height 6 ft. 5 in. (195.58 cm) (R); Pain 6/10; 17:46 Body Mass Index 34.39 (131.54 kg, 195.58 cm) jd3 ED Course: 17:38 Patient arrived in ED. am2 17:44 Triage completed. jd3 17:46 Arm band placed on. jd3 17:54 Anderson Skinner PA is PHCP. cp 17:54 Tam Kitchen MD is Attending Physician. cp Administered Medications: No medications were administered Outcome: 18:03 Eloped from patient exam room, before seeing physician Time discovered patient gone: jd3 July 29, 2020 at 18:03 18:03 Instructed on follow up and referral plans. 18:04 Patient left the ED. jd3 Signatures: Anderson Skinner PA PA Mamta Reid Jonathon RN RN jd3
[2020-07-29 22:57] VITALS: BP 160/101; TEMP 98.1; O2SAT 98
== END 2020-07-29 18:04 | disposition left against medical advice (07) ==
LOC: ER 17:34
DX: Z53.21 Procedure and treatment not carried out due to patient leaving prior to being seen by health care provider (principal)
CPT/HCPCS: 99281

== ENCOUNTER 2020-12-23 04:57 | Emergency (ER) | payer OTHER ==
--- OUTSIDE RECORDS SUMMARY | 2020-12-23 05:00 | XMS REPORT | Continuity of Care Document ---
:1990 Author Organization [facility] t Address [address] [place] [address] Care Team Providers Name Role Phone Melina BOYCE S Attending Clinician Tyrese Hoyos Attending Clinician Singer [...] Clinicians Facility Department ID 2020-04-20 2020-04-20 Emergency [facility] [id number] 20:31:00 20:46:00 Linda Yeh [id number] [place] [id number] [place] [address] [id number] 2020-02-29 2020-02-29 [facility] [id number] 19:24:00 22:07:00 Meka Yeh [id number] [place] [id number] [place] [address] [id number] 2019-09-24 2019-09-24 Emergency [facility] [id number] 15:40:58 19:38:00 Oswaldo Yeh [id number] [place] [id number] [place] [id number] 2019-09-24 2019-09-24 Telephone YENNIFER Irwin [id number] 00:00:00 00:00:00 Dorcas CAPUTO [id number] [facility] [id number] Results This patient has no known results.
--- NOTE | 2020-12-23 05:37 | ER ---
Nurse's Notes [facility] Name: Miller Mullen Age: 30 yrs Sex: Male : 1990 Arrival Date: 12/23/2020 Time: 05:02 Bed 5 Private MD: Diagnosis: Laceration without foreign body of left hand Presentation: 12/23 05:20 Chief complaint: Patient states: he cut his left hand with a razor by accident approx bb 45 mins ago. Coronavirus screen: At this time, the client does not indicate any symptoms associated with coronavirus-19. Ebola Screen: No symptoms or risks identified at this time. Complicating Factors: There are no complicating factors for this patient. Initial Sepsis Screen: Does the patient meet any 2 criteria? No. Patient's initial sepsis screen is negative. Does the patient have a suspected source of infection? No. Patient's initial sepsis screen is negative. Risk Assessment: Do you want to hurt yourself or someone else? Patient reports no desire to harm self or others. Onset of symptoms was December 23, 2020. 05:20 Method Of Arrival: Ambulatory 05:20 Acuity: MT 4 bb Historical: - Allergies: 05:22 none; bb - Home Meds: 05:22 None [Active]; bb - PMHx: 05:22 Hypertension; bb - PSHx: 05:22 None; bb - Immunization history:: Adult Immunizations up to date. - Social history:: Smoking status: Patient denies any tobacco usage or history of. Patient/guardian denies using alcohol, street drugs. - Family history:: not pertinent. Screenin:25 Abuse screen: Denies threats or abuse. Nutritional screening: No deficits noted. ea Tuberculosis screening: No symptoms or risk factors identified. Fall Risk None identified. Assessment: 05:33 General: Appears uncomfortable, Behavior is appropriate for age. Pain: Complains of ea pain in left hand. Neuro: Level of Consciousness is awake, alert, obeys commands, Oriented to person, place, time. Cardiovascular: Patient's skin is warm and dry. Respiratory: Airway is patent Respiratory effort is even, unlabored, Respiratory pattern is regular, symmetrical. Derm: Skin is pink, warm \T\ dry. Musculoskeletal: Circulation, motion, and sensation intact. Injury Description: Laceration sustained to Left first web space is clean. 05:53 Reassessment: Patient and/or family updated on plan of care and expected duration. Pain ea level reassessed. Patient is alert, oriented x 3, equal unlabored respirations, skin warm/dry/pink. Discharge instruction given to patient verbalized the understanding of instruction. Pt left ED ambulatory tolerating well. Vital Signs: 05:20 BP 144 / 95; Pulse 99; Resp 16 S; Temp 99.2(O); Pulse Ox 96% on R/A; Weight 136.08 kg bb (R); Height 6 ft. 5 in. (195.58 cm) (R); Pain 4/10; 05:20 Body Mass Index 35.57 (136.08 kg, 195.58 cm) bb ED Course: 05:02 Patient arrived in ED. es 05:19 Anthony Loaiza MD is Attending Physician. maMarylou 05:22 Triage completed. bb 05:22 Arm band placed on Patient placed in an exam room, on a stretcher, on pulse oximetry. bb 05:25 Zabrina Hardin RN is Primary Nurse. ea 05:33 Patient has correct armband on for positive identification. Bed in low position. Call ea light in reach. Side rails up X2. 05:52 Assist provider with laceration repair on left hand that was 2.5 cm. or less using evelin sutures. Set up tray. Performed by Anthony Loaiza MD Dressed with Patient tolerated well. Patient did not have IV access during this emergency room visit. Administered Medications: No medications were administered Outcome: 05:36 Discharge ordered by . ma2 05:52 Discharged to home ambulatory, with family. ea 05:52 Condition: stable 05:52 Discharge instructions given to patient, Instructed on discharge instructions, follow up and referral plans. medication usage, Demonstrated understanding of instructions, follow-up care, medications, Prescriptions given X 2. 05:53 Patient left the ED. ea Signatures: Rose Sherwood Brenda RN Zabrina Sarkar RN RN ea Alzahri, Mohammad, MD MD ma2 Corrections: (The following items were deleted from the chart) 05:24 05:22 Allergies: Ultram; pt stated headache if he takes ultram; jessica lopez
--- NOTE | 2020-12-23 05:37 | EDPHYS ---
Physician Documentation [facility] Name: Miller Mullen Age: 30 yrs Sex: Male : 1990 Arrival Date: 12/23/2020 Time: 05:02 Bed 5 Private MD: ED Physician Anthony Loaiza HPI: 12/23 05:34 This 30 yrs old Male presents to ER via Ambulatory with complaints of ma2 Laceration To Hand. 05:34 Onset: The symptoms/episode began/occurred suddenly, 1 hour(s) ago. Associated signs ma2 and symptoms: Pertinent negatives: heavy bleeding, loss of consciousness, suspected foreign body. The patient has not experienced similar symptoms in the past. Sustained left hand laceration while trying to open a can, 2 cm superficial,. Historical: - Allergies: 05:22 none; bb - Home Meds: 05:22 None [Active]; bb - PMHx: 05:22 Hypertension; bb - PSHx: 05:22 None; bb - Immunization history:: Adult Immunizations up to date. - Social history:: Smoking status: Patient denies any tobacco usage or history of. Patient/guardian denies using alcohol, street drugs. - Family history:: not pertinent. ROS: 05:34 Constitutional: Negative for fever, chills, and weight loss. ma2 05:34 All other systems are negative. Exam: 05:34 Constitutional: This is a well developed, well nourished patient who is awake, alert, ma2 and in no acute distress. Head/Face: Normocephalic, atraumatic. Eyes: Pupils equal round and reactive to light, extra-ocular motions intact. Lids and lashes normal. Conjunctiva and sclera are non-icteric and not injected. Cornea within normal limits. Periorbital areas with no swelling, redness, or edema. ENT: Nares patent. No nasal discharge, no septal abnormalities noted. Tympanic membranes are normal and external auditory canals are clear. Oropharynx with no redness, swelling, or masses, exudates, or evidence of obstruction, uvula midline. Mucous membranes moist. Neck: Trachea midline, no thyromegaly or masses palpated, and no cervical lymphadenopathy. Supple, full range of motion without nuchal rigidity, or vertebral point tenderness. No Meningismus. Chest/axilla: Normal chest wall appearance and motion. Nontender with no deformity. No lesions are appreciated. Cardiovascular: Regular rate and rhythm with a normal S1 and S2. No gallops, murmurs, or rubs. Normal PMI, no JVD. No pulse deficits. Respiratory: Lungs have equal breath sounds bilaterally, clear to auscultation and percussion. No rales, rhonchi or wheezes noted. No increased work of breathing, no retractions or nasal flaring. Abdomen/GI: Soft, non-tender, with normal bowel sounds. No distension or tympany. No guarding or rebound. No evidence of tenderness throughout. Skin: Warm, dry with normal turgor. Normal color with no rashes, no lesions, and no evidence of cellulitis. MS/ Extremity: 2 cm linear laceration, superficial to the posterior hand at the base of thumper, tendons are intact, all hand movement finger movements are intact cap refill is intact neurovascular, sensation and color is within normal limits. Pulses equal, no cyanosis. Neurovascular intact. Full, normal range of motion. Neuro: Awake and alert, GCS 15, oriented to person, place, time, and situation. Cranial nerves II-XII grossly intact. Motor strength 5/5 in all extremities. Sensory grossly intact. Cerebellar exam normal. Normal gait. Vital Signs: 05:20 BP 144 / 95; Pulse 99; Resp 16 S; Temp 99.2(O); Pulse Ox 96% on R/A; Weight 136.08 kg bb (R); Height 6 ft. 5 in. (195.58 cm) (R); Pain 4/10; 05:20 Body Mass Index 35.57 (136.08 kg, 195.58 cm) bb Laceration: 05:34 Wound Repair of 2cm ( 0.8in ) subcutaneous laceration to left hand. Linear shaped.. ma2 Distal neuro/vascular/tendon intact. Anesthesia: Local anesthetic administered with 10 mls of 1% lidocaine w/ Epi. Wound prep: Moderate cleansing. Skin closed with 4 4-0 Prolene using simple sutures and sterile technique. Dressed with 4x4's. Patient tolerated well. MDM: 05:20 Patient medically screened. ma2 05:34 Differential diagnosis: superficial laceration. Data reviewed: vital signs, nurses ma2 notes. Counseling: I had a detailed discussion with the patient and/or guardian regarding: the historical points, exam findings, and any diagnostic results supporting the discharge/admit diagnosis, the presence of at least one elevated blood pressure reading (>120/80) during this emergency department visit, the need for outpatient follow up. Response to treatment: the patient's symptoms have markedly improved after treatment. 12/23 05:29 Order name: Suture Tray Setup; Complete Time: 05:48 ea 12/23 05:29 Order name: Wound dressing; Complete Time: 05:48 ea Administered Medications: No medications were administered Disposition Summary: 12/23/20 05:36 Discharge Ordered Location: Home ma2 Condition: Stable ma2 Diagnosis - Laceration without foreign body of left hand ma2 Followup: ma2 - With: Private Physician - When: Tomorrow - Reason: Recheck today's complaints, Continuance of care Discharge Instructions: - Discharge Summary Sheet ma2 - Facial Laceration ma2 - Laceration Care, Adult, [id number] ma2 Forms: - Medication Reconciliation Form ma2 - Thank You Letter ma2 - Antibiotic Education ma2 - Prescription Opioid Use ma2 Prescriptions: - Clindamycin HCl 300 mg Oral Capsule - take 1 capsule by ORAL route every 6 hours for 10 days; 40 capsule; Refills: 0, ma2 Product Selection Permitted - Diclofenac Sodium 75 mg Oral Tablet Sustained Release - take 1 tablet by ORAL route 2 times per day; 30 tablet; Refills: 0, Product ma2 Selection Permitted Signatures: Bernadette Ward RN RN bb Antunez, Elena, RN RN ea Alzahri, Mohammad, MD MD ma2 Corrections: (The following items were deleted from the chart) 05:24 05:22 Allergies: Ultram; pt stated headache if he takes ultram; jessica lopez
[2020-12-23] MEDS ORDERED: LIDOCAINE 1% W/EPI 1:100,000 MDV 20 ML VIAL ONE (05:44)
[2020-12-23] MEDS ORDERED: TETANUS & DIPHTHERIA TOX,ADULT 0.5 ML VIAL ONE (06:02)
[2020-12-23 06:12] VITALS: BP 144/95; TEMP 99.2; O2SAT 96
== END 2020-12-23 05:53 | disposition home or self-care (01) ==
LOC: ER 04:57
PROC: 0HQGXZZ Repair Left Hand Skin, External Approach (ICD-10-PCS; principal; 2020-12-23)
DX: S61.412A Laceration without foreign body of left hand, initial encounter (principal); W26.8XXA Contact with other sharp object(s), not elsewhere classified, initial encounter; I10 Essential (primary) hypertension; Z23 Encounter for immunization
CPT/HCPCS: 90714; 99283

== ENCOUNTER 2021-07-19 08:47 | Emergency (ER) | payer OTHER ==
--- OUTSIDE RECORDS SUMMARY | 2021-07-19 08:50 | XMS REPORT | Continuity of Care Document ---
:1990 Author Organization [facility] t Address [address] [place] [place] [address] Care Team Providers Name Role Phone Melina BOYCE, S Attending Clinician Barbara WASHBURN, R Attending Clinician Singer PAGE Attending Clinician Dc WREN, M Attending Clinician Unavailable Payers Payer Name Policy Type Policy Number Effective Date Expiration Date S annalisa [employer] CHOICE POS [id number] 2018 00:00:00 II Problems This patient has no known problems. Allergies, Adverse Reactions, Alerts Allergy Allergy Status Severity Reaction(s) Onset Inactive Treating Comm ents Source Name Type Date Date Clinician DEXTROME DRUG Active Hives [facility] 10-17 ity of 00:00: [address] Medications This patient has no known medications. Procedures This patient has no known procedures. Encounters Start End Encounter Admission Attending Care Care Encounter Source Date/Time Date/Time Type Type Clinicians Facility Department ID 2021-03-25 Emergency [facility] [id number] Univers 07:53:44 ity [facility] 2021-03-24 Emergency [facility] [id number] Univers 21:12:32 ity [facility] 2021-03-23 Emergency [facility] [id number] Univers 19:33:27 [facility] 2020-04-20 2020-04-20 Emergency [facility] [id number] 20:31:00 20:46:00 Linda Conway Rao [id number] [place] [id number] [place] [id number] 2020-02-29 2020-02-29 Emergency [facility] [id number] 19:24:00 22:07:00 Meka Yeh [id number] [place] [id number] [place] [id number] 2019-09-24 2019-09-24 [facility] [id number] 15:40:58 19:38:00 Oswaldo Yeh [id number] [place] [id number] [place] [id number] 2019-09-24 2019-09-24 Telephone YENNIFER Irwin [id number] 00:00:00 00:00:00 Dorcas CAPUTO [id number] [facility] [id number] Results This patient has no known results.
[2021-07-19 11:03] LABS: SARS-COV-2 RT PCR NEGATIVE (NEGATIVE)
--- NOTE | 2021-07-19 11:15 | ER ---
[facility] Name: Miller Mullen Age: 31 yrs Sex: Male : 1990 Arrival Date: 07/19/2021 Time: 08:49 Bed 11 Private MD: Diagnosis: Viral infection, unspecified-viral syndrome Presentation: 07/19 09:01 Chief complaint: Patient states: he has body aches, chills, vomiting land vomiting that ap3 began last night. Coronavirus screen: chills, fatigue, headache, muscle pain, Client presents with at least one sign or symptom that may indicate coronavirus-19. Standard/surgical mask placed on the client. Provider contacted for isolation considerations. Ebola Screen: No symptoms or risks identified at this time. Initial Sepsis Screen: Does the patient meet any 2 criteria? Yes Does the patient have a suspected source of infection? No. Patient's initial sepsis screen is negative. Risk Assessment: Do you want to hurt yourself or someone else? Patient reports no desire to harm self or others. Onset of symptoms was July 18, 2021. 09:01 Method Of Arrival: Ambulatory ap3 09:01 Acuity: MT 4 ap3 Triage Assessment: 09:04 General: Appears uncomfortable, Behavior is calm, cooperative. Pain: Complains of pain ap3 in generalized aches and pains. Neuro: Level of Consciousness is awake, alert, obeys commands, Oriented to person, place, time, situation, Appropriate for age. Respiratory: Airway is patent Respiratory effort is even, unlabored. GI: Reports nausea. Historical: - Allergies: 09:03 Codeine; ap3 - Home Meds: 09:03 None [Active]; ap3 - PMHx: 09:03 Hypertension; ap3 - Immunization history:: Client reports receiving the 2nd dose of the Covid vaccine, Flu vaccine is not up to date. - Social history:: Smoking status: Patient reports use of chewing tobacco. Screenin:28 Abuse screen: Denies threats or abuse. Nutritional screening: No deficits noted. ap3 Tuberculosis screening: No symptoms or risk factors identified. Fall Risk None identified. Assessment: 10:20 Reassessment: Patient and/or family updated on plan of care and expected duration. Pain ap3 level reassessed. Patient is alert, oriented x 3, equal unlabored respirations, skin warm/dry/pink. Vital Signs: 09:01 BP 133 / 96; Pulse 115; Temp 99.1(TE); Pulse Ox 99% ; Weight 138.8 kg; Height 6 ft. 5 ap3 in. (195.58 cm); 09:01 Body Mass Index 36.29 (138.80 kg, 195.58 cm) ap3 ED Course: 08:49 Patient arrived in ED. as 09:03 Lilibeth Balderas FNP-C is [facility]. kb 09:03 Anthony Loaiza MD is Attending Physician. kb 09:03 Triage completed. ap3 09:04 Arm band placed on left wrist. ap3 09:34 COVID swab sent to lab. ap3 11:28 Mamta Garcia, RN is Primary Nurse. ap3 11:28 Patient has correct armband on for positive identification. Call light in reach. ap3 11:28 No provider procedures requiring assistance completed. Patient did not have IV access ap3 during this emergency room visit. Administered Medications: No medications were administered Outcome: 11:14 Discharge ordered by MD. kb 11:29 Discharged to home ambulatory. ap3 11:29 Condition: good 11:29 Discharge instructions given to patient, Instructed on discharge instructions, follow up and referral plans. Demonstrated understanding of instructions, follow-up care. 11:29 Patient left the ED. ap3 Signatures: Lilibeth Balderas FNP-C FNP-Anabell George as Mamta Garcia, RN RN ap3 Corrections: (The following items were deleted from the chart) 09:04 09:03 Allergies: none; ap3 ap3
--- NOTE | 2021-07-19 11:15 | EDPHYS ---
Physician Documentation [facility] Name: Miller Mullen Age: 31 yrs Sex: Male : 1990 Arrival Date: 07/19/2021 Time: 08:49 Bed 11 Private MD: ED Physician Anthony Loaiza HPI: 07/19 11:12 This 31 yrs old Male presents to ER via Ambulatory with complaints of r/o covid. kb 11:12 The patient or guardian reports flu symptoms, low-grade fever, myalgias. Associated kb signs and symptoms: Pertinent positives: fever, nausea, vomiting, Pertinent negatives: chest pain, diarrhea, ear ache, rhinorrhea, sore throat. The patient has not experienced similar symptoms in the past. The patient has not recently seen a physician. 11:13 Onset: The symptoms/episode began/occurred last night. Severity of symptoms: At their kb worst the symptoms were moderate, in the emergency department the symptoms are unchanged. Modifying factors: The symptoms are alleviated by nothing, the symptoms are aggravated by nothing. Pt reports bodyaches, fever, chills, malaise, n/v that started last night. Recent exposure to covid. Historical: - Allergies: 09:03 Codeine; ap3 - Home Meds: 09:03 None [Active]; ap3 - PMHx: 09:03 Hypertension; ap3 - Immunization history:: Client reports receiving the 2nd dose of the Covid vaccine, Flu vaccine is not up to date. - Social history:: Smoking status: Patient reports use of chewing tobacco. ROS: 11:11 Respiratory: Negative for shortness of breath, cough, wheezing, and pleuritic chest kb pain. 11:11 Constitutional: Positive for body aches, chills, fatigue, fever, malaise. 11:11 Abdomen/GI: Positive for nausea and vomiting, Negative for abdominal pain, diarrhea. 11:11 All other systems are negative. Exam: 11:11 Constitutional: This is a well developed, well nourished patient who is awake, alert, kb and in no acute distress. Head/Face: Normocephalic, atraumatic. ENT: Moist Mucous membranes Cardiovascular: Regular rate and rhythm with a normal S1 and S2. No gallops, murmurs, or rubs. No pulse deficits. Respiratory: Respirations even and unlabored. No increased work of breathing. Talking in full sentences Abdomen/GI: Soft, non-tender. No distention Skin: Warm, dry with normal turgor. Normal color. MS/ Extremity: Pulses equal, no cyanosis. Neurovascular intact. Full, normal range of motion. Neuro: Awake and alert, GCS 15, oriented to person, place, time, and situation. Moves all extremities. Normal gait. Psych: Awake, alert, with orientation to person, place and time. Behavior, mood, and affect are within normal limits. Vital Signs: 09:01 BP 133 / 96; Pulse 115; Temp 99.1(TE); Pulse Ox 99% ; Weight 138.8 kg; Height 6 ft. 5 ap3 in. (195.58 cm); 09:01 Body Mass Index 36.29 (138.80 kg, 195.58 cm) ap3 MDM: 09:04 Patient medically screened. 11:11 Data reviewed: vital signs, nurses notes. Data interpreted: Pulse oximetry: on room air kb is 99 %. Interpretation: normal. Counseling: I had a detailed discussion with the patient and/or guardian regarding: the historical points, exam findings, and any diagnostic results supporting the discharge/admit diagnosis, lab results, the need for outpatient follow up, a family practitioner, to return to the emergency department if symptoms worsen or persist or if there are any questions or concerns that arise at home. 07/19 09:03 Order name: COVID-19/FLU A+B (Document "Date of Onset" if Symptomatic); Complete Time: 11:05 Administered Medications: No medications were administered Disposition Summary: 07/19/21 11:14 Discharge Ordered Location: Home kb Condition: Stable kb Diagnosis - Viral infection, unspecified - viral syndrome kb Followup: kb - With: Emergency Department - When: As needed - Reason: Worsening of condition Followup: kb - With: Private Physician - When: 2 - 3 days - Reason: Recheck today's complaints, Continuance of care, Re-evaluation by your physician Discharge Instructions: - Discharge Summary Sheet kb - Viral Illness, Adult kb Forms: - Medication Reconciliation Form kb - Thank You Letter kb - Work release form kb - Antibiotic Education kb - Prescription Opioid Use kb Prescriptions: - Zofran 4 mg Oral Tablet - take 1 tablet by ORAL route every 6 hours As needed; 20 tablet; Refills: 0, kb Product Selection Permitted Signatures: Dispatcher [employer] Lilibeth Varner, Mamta Machuca, RN RN ap3 Corrections: (The following items were deleted from the chart) 09:04 09:03 Allergies: none; ap3 ap3
[2021-07-19 11:33] VITALS: BP 133/96; TEMP 99.1; O2SAT 99
== END 2021-07-19 11:29 | disposition home or self-care (01) ==
LOC: ER 08:47
DX: B34.9 Viral infection, unspecified (principal); Z20.822 Contact with and (suspected) exposure to COVID-19; I10 Essential (primary) hypertension; Z88.5 Allergy status to narcotic agent
CPT/HCPCS: 0240U; 99281

== ENCOUNTER 2022-09-09 19:45 | Inpatient (IN) | payer OTHER ==
--- OUTSIDE RECORDS SUMMARY | 2022-09-09 19:48 | XMS REPORT | Continuity of Care Document ---
:1990 Author Organization [facility] t Address [address] [facility] [address] [place] [address] Care Team Providers Name Role Phone Melina BOYCE, Linda Conway Attending Clinician Meka Hoyos Attending Clinician Oswaldo Flowers DO Attending Clinician Dc WREN, Dorcas Forde Attending Clinician Unavailable Payers Payer Name Policy Type Policy Number Effective Date Expiration Date S annalisa [employer] CHO[employer] POS [id number] 2018 00:00:00 II Problems This patient has no known problems. Allergies, Adverse Reactions, Alerts Allergy Allergy Status Severity Reaction(s) Onset Inactive Treating Comm ents Source Name Type Date Date Clinician DEXTROME DRUG Active Hives [facility] 5-24 ity of 00:00: [address] Medications This patient has no known medications. Procedures This patient has no known procedures. Encounters Start End Encounter Admission Attending Care Care Encounter Source Date/Time Date/Time Type Type Clinicians Facility Department ID 2021-03-25 Emergency [facility] [id number] Univers 07:53:44 ity [facility] 2021-03-24 Emergency [facility] [id number] Univers 21:12:32 ity [facility] 2021-03-23 Emergency [facility] [id number] [facility] 19:33:27 ity of [facility] 2020-04-20 2020-04-20 [facility] [id number] 20:31:00 20:46:00 Linda Yeh [id number] [place] [id number] [place] [id number] 082020-02-29 2020-02-29 Emergency [facility] [id number] 19:24:00 22:07:00 Meka Tyrese Rao [id number] [place] [id number] [place] [id number] 2019-09-24 2019-09-24 [facility] [id number] 15:40:58 19:38:00 Oswaldo Yeh [id number] [place] [id number] [place] [id number] 2019-09-24 2019-09-24 Telephone YENINFER Irwin [id number] 00:00:00 00:00:00 Dorcas CAPUTO [id number] [facility] [id number] Results This patient has no known results.
[2022-09-09] MEDS ORDERED: MORPHINE 4 MG/ML SYR ONE (21:15)
[2022-09-09] MEDS ORDERED: ONDANSETRON 4 MG/2 ML VIAL ONE (21:16)
[2022-09-09] MEDS ORDERED: NA CHLORIDE 0.9% 1,000 ML ONE ×3 (21:16→23:00)
[2022-09-09 21:29] LABS: Specific Gravity 1.021 (1.005-1.030); Urine Bilirubin NEGATIVE (Negative); Urine Blood Negative (Negative); Urine Clarity Clear (Clear); Urine Color Yellow (Yellow); Urine Glucose NEGATIVE (Negative); Urine Protein NEGATIVE (Negative); Urine Urobilinogen Normal (Normal)
[2022-09-09 21:30] LABS: Absolute Lymphocytes (CBC) 2.4 K/uL (0.7-4.9); Hematocrit 46.3 % (39.6-49.0); Lymphocytes % 13.3 % (15.3-44.8); MCV 90.1 fL (80-100); MPV 7.8 fL (7.6-11.3); RBC Red Blood Cell Count 5.14 M/uL (4.33-5.43)
[2022-09-09 21:46] LABS: Albumin 4.3 g/dL (3.4-5.0); Bilirubin Total 0.4 mg/dL (0.2-1.0); Potassium 3.9 mEq/L (3.5-5.1); Protein, Total 8.1 g/dL (6.4-8.2)
--- NOTE | 2022-09-09 21:58 | RAD REPORT ---
EXAM DESCRIPTION: CT - Stone Protocol - 09/09/2022 9:24 pm CLINICAL HISTORY: dysuria, right low abdomen/suprapubic pain COMPARISON: CT ABD PELVIS W CONTRAST dated 09/30/2013 TECHNIQUE: Thin cut axial CT imaging of the abdomen and pelvis was performed without IV contrast. Mu ltiplanar reformats were generated and reviewed. All CT scans are performed using dose optimization technique as appropriate and may include automated exposure control or mA/KV adjustment according to patient size. FINDINGS: No suspicious findings in the lung bases. The liver demonstrates diffuse parenchymal hypoattenuation suggesting steatosis. Adrenal glands, sple en, and pancreas show no suspicious findings. Gallbladder and biliary tree are also without suspiciou s finding. Symmetric renal contour, without suspicious parenchymal findings within limits of noncontrast techniq ue. No evidence of radiopaque calculi or hydroureteronephrosis. No dilated bowel loops. Short-segment of mid sigmoid colon wall thickening and adjacent fat stranding . Tiny locules of gas in the vicinity of the area of inflammation, best appreciated on coronal images 50 and 51 series 202. No appreciable paracolic fluid collections. No free air, or free fluid. Adjace nt ileal bowel loop demonstrates fecalization and mild wall thickening, likely adjacent enteritis. . No hernia, mass or bulky lymphadenopathy. The urinary bladder is without significant finding. No suspicious bony findings. IMPRESSION: Acute sigmoid diverticulitis with suggestion of micro perforation. Focal enteritis of an adjacent ileal loop. Diffuse hepatic steatosis. The findings were communicated to Anderson Skinner on 09/09/2022 at 21:52 hours.
[2022-09-09] MEDS ORDERED: ACETAMINOPHEN 500 MG TAB PO PRN (22:27)
--- NOTE | 2022-09-09 22:50 | ER ---
Nurse's Notes [facility] Name: Miller Mullen Age: 32 yrs Sex: Male : 1990 Arrival Date: 09/09/2022 Time: 19:45 Bed 14 Private MD: Diagnosis: Diverticulitis of Sigmoid Colon with Perforation;Severe sepsis without septic shock Presentation: 09/09 19:56 Chief complaint: Patient states: decrease in urine output with difficulty with pf1 urination with lower abdominal pain of 10,onset 2 hours. Patient stated took AZO's at 1 hour ago. Coronavirus screen: Vaccine status: Patient reports receiving the 2nd dose of the covid vaccine. Client denies travel out of the [place] in the last 14 days. At this time, the client does not indicate any symptoms associated with coronavirus-19. Ebola Screen: Patient negative for fever greater than or equal to 101.5 degrees Fahrenheit, and additional compatible Ebola Virus Disease symptoms. Initial Sepsis Screen: Does the patient meet any 2 criteria? No. Patient's initial sepsis screen is negative. Does the patient have a suspected source of infection? No. Patient's initial sepsis screen is negative. Risk Assessment: Do you want to hurt yourself or someone else? Patient reports no desire to harm self or others. 19:56 Method Of Arrival: Ambulatory pf1 19:56 Acuity: MT 3 pf1 23:33 Onset of symptoms was September 09, 2022. lg3 Historical: - Allergies: 20:02 Codeine; pf1 - PMHx: 20:02 Hypertension; pf1 - Immunization history:: Adult Immunizations up to date. - Social history:: Smoking status: Patient denies any tobacco usage or history of. Patient uses alcohol, occasionally. Screenin:35 [facility] ED Fall Risk Assessment (Adult) History of falling in the last 3 months, lg3 including since admission No falls in past 3 months (0 pts). Abuse screen: Denies threats or abuse. Denies injuries from another. Nutritional screening: No deficits noted. Tuberculosis screening: No symptoms or risk factors identified. Assessment: 21:35 General: Appears in no apparent distress. uncomfortable, Behavior is cooperative, lg3 fussy. Pain: Complains of pain in right lower quadrant Pain currently is 10 out of 10 on a pain scale. Noted to be agitated, grimacing, guarding, moaning, resistant to movement, restless, Also complains of nausea. Neuro: No deficits noted. Tucker Agitation-Sedation Scale (RASS): 0 - Alert and Calm Level of Consciousness is awake, alert, obeys commands, Oriented to person, place, time, situation. Cardiovascular: No deficits noted. Denies chest pain, shortness of breath, Capillary refill < 3 seconds Clubbing of nail beds is absent JVD is absent Patient's skin is warm and dry. Respiratory: No deficits noted. Airway is patent Respiratory effort is even, unlabored, Respiratory pattern is regular, symmetrical. GI: Abdomen is round non-distended, Bowel sounds present X 4 quads. Abd is soft X 4 quads Abdomen is tender to palpation in right lower quadrant Abdomen has rebound tenderness in right lower quadrant Guarding noted in right lower quadrant Reports lower abdominal pain, cramping. : Reports inability to void, pain in right in suprapubic area lower quadrant(s). EENT: No deficits noted. No signs and/or symptoms were reported regarding the EENT system. Derm: No deficits noted. No signs and/or symptoms reported regarding the dermatologic system. Skin is intact, is healthy with good turgor, Skin is dry, Skin is normal, Skin temperature is warm. Musculoskeletal: No deficits noted. No signs and/or symptoms reported regarding the musculoskeletal system. Circulation, motion, and sensation intact. Range of motion: intact in all extremities. 23:15 Reassessment: Patient appears in no apparent distress at this time. No changes from lg3 previously documented assessment. Patient and/or family updated on plan of care and expected duration. Pain level reassessed. Patient is alert, oriented x 3, equal unlabored respirations, skin warm/dry/pink. 09/11 18:34 Reassessment: Gave report to admitting nurse SIENA Haynes. mb9 Vital Signs: 09/09 19:56 BP 160 / 109; Pulse 113; Resp 18; Temp 98; Pulse Ox 97% ; Weight 145.15 kg; Height 6 pf1 ft. 5 in. ; Pain 10/10; 21:35 BP 128 / 109; Pulse 110; Resp 18 S; Pulse Ox 98% on R/A; lg3 23:13 BP 128 / 78; Pulse 129; Resp 18 S; Temp 100.6(O); Pulse Ox 98% on R/A; lg3 19:56 Body Mass Index 37.95 (145.15 kg, 195.58 cm) pf1 19:56 Pain Scale: Adult pf1 ED Course: 19:49 Patient arrived in ED. ja2 19:53 Anderson Skinner PA is PHCP. cp 20:02 Triage completed. pf1 20:04 Moises Thomas MD is Attending Physician. cp 21:19 CBC with Diff Sent. lg3 21:19 CMP Sent. lg3 21:19 Lipase Sent. lg3 21:19 Urinalysis w/ reflexes Sent. lg3 21:21 Inserted saline lock: 20 gauge in left antecubital area, using aseptic technique. Blood ah1 collected. 21:26 CT [facility] Protocol In Process Unspecified. EDMS 21:35 Radha Hernandez, SIENA is Primary Nurse. lg3 21:35 Patient has correct armband on for positive identification. Placed in gown. Bed in low lg3 position. Call light in reach. Side rails up X 1. Client placed on continuous cardiac and pulse oximetry monitoring. NIBP monitoring applied. Door closed. Noise minimized. Warm blanket given. Family accompanied patient. 22:48 Isacc Howard MD is Hospitalizing Provider. cp 22:48 Blood Culture Adult (2) Sent. lg3 22:48 PT-INR Sent. lg3 22:48 Procalcitonin Sent. lg3 22:48 Lactate w/ 2H reflex if indic. Sent. lg3 23:33 No provider procedures requiring assistance completed. Patient admitted, IV remains in lg3 place. intact, No redness/swelling at site. 23:33 Arm band placed on left wrist. lg3 Administered Medications: 21:43 Drug: NS 0.9% IV 1000 ml Route: IV; Rate: 1 bolus; Site: left antecubital; lg3 22:48 Follow up: IV Status: Completed infusion; IV Intake: 1000ml lg3 21:43 Drug: Ondansetron IVP 4 mg Route: IVP; Site: left antecubital; lg3 22:48 Follow up: Response: No adverse reaction; Marked relief of symptoms lg3 21:43 Drug: morphine IVP or IV 4 mg Route: IVP; Infused Over: 4 mins; Site: left antecubital; lg3 22:48 Follow up: Response: No adverse reaction; No change in condition lg3 22:53 Drug: Piperacillin-Tazobactam IVPB 3.375 grams Route: IVPB; Infused Over: 60 mins; lg3 Site: left antecubital; 09/10 02:14 Follow up: IV Status: Completed infusion; IV Intake: 100ml [facility] 09/09 22:53 Drug: HYDROmorphone IVP 1 mg Route: IVP; Site: left antecubital; 3 09/10 02:14 Follow up: Response: No adverse reaction; RASS: Alert and Calm (0) [facility] 09/09 22:53 Drug: metroNIDAZOLE IVPB 500 mg Volume: 100 ml; Route: IVPB; Infused Over: 30 mins; lg3 Site: left antecubital; 09/10 02:14 Follow up: IV Status: Completed infusion; IV Intake: 100ml [facility] 09/09 22:53 Drug: NS 0.9% IV 1000 ml Route: IV; Rate: 1000 ml; Site: left antecubital; 3 09/10 02:13 Follow up: IV Status: Completed infusion; IV Intake: 1000ml [facility] 09/09 22:55 Drug: NS 0.9% IV 1000 ml Route: IV; Rate: 1 bolus; Site: left antecubital; 3 09/10 02:14 Follow up: IV Status: Completed infusion; IV Intake: 1000ml [facility] 09/09 23:27 Drug: Acetaminophen PO 1000 mg Route: PO; lg3 Medication: 23:33 VIS not applicable for this client. lg3 Intake: 22:48 IV: 1000ml; Total: 1000ml. 3 09/10 02:13 IV: 1000ml; Total: 2000ml. lg3 02:14 IV: 100ml; Total: 2100ml. lg3 02:14 IV: 100ml; Total: 2200ml. lg3 02:14 IV: 1000ml; Total: 3200ml. lg3 Outcome: 09/09 22:50 Decision to Hospitalize by Provider. cp 23:33 Admitted to ER Hold. Please see [facility] for further documentation. lg3 23:33 Condition: stable 23:33 Instructed on the need for admit, Demonstrated understanding of instructions. 09/11 18:34 Patient left the ED. mb9 Signatures: Dispatcher [facility] Anderson Skinner PA PA cp Gibson, Lacie, RN RN lg3 Sheela Gonzalez Mary Beth, RN RN mb9 Rosemarie landry RN RN pf1 [place], Cosme [facility]
--- NOTE | 2022-09-09 22:50 | P.HP ---
Certification for Inpatient Patient admitted to: Inpatient With expected LOS: >2 Midnights Patient will require the following post-hospital care: None Practitioner: I am a practitioner with admitting privileges, knowledge of patient current condition, hospital course, and medical plan of care. Services: Services provided to patient in accordance with Admission requirements found in Title 42 Section 412.3 of the Code of Federal Regulations Patient History Date of Service: 09/09/22 Reason for admission: Diverticulitis with microperforation History of Present Illness: 32-year-old male with history of hypertension not currently on any medications presents the emergency part with chief complaint of lower abdominal pain. He reports his pain began at around 230 this morning, waking him up from sleep. The pain progressed of the day becoming severe in nature. He denies similar episodes in the past. Pain is the worst in the lower abdomen especially in the left side but also having generalized pain throughout. He is evaluated in the emergency department his labs were significant for leukocytosis white blood cell count 18.3 urinalysis was negative for UTI CT abdomen pelvis with IV contrast was performed which revealed acute sigmoid diverticulitis with suggestion of microperforation. Focal enteritis of an adjacent ileal loop. Diffuse hepatic steatosis. ED provider discussed case with general surgery who wishes for patient be admitted to the hospital service, on antibiotics/NPO. Allergies No Known Drug Allergies Allergy (Unverified 05/05/14 00:58) Unknown No Known Allergies Allergy (Uncoded 09/19/15 20:27) Unknown - Past Medical/Surgical History -: Hypertension -: None Psychosocial/ Personal History: Patient lives at home with family - Family History Family History: Reviewed- Non-Contributory - Social History Smoking Status: Never smoker Alcohol use: No CD- Drugs: No Caffeine use: Yes Place of Residence: Home Review of Systems 10-point ROS is otherwise unremarkable Gastrointestinal: Nausea, Abdominal Pain Physical Examination - Physical Exam General: Alert, In no apparent distress, Oriented x3 HEENT: Atraumatic, PERRLA, Mucous membr. moist/pink, EOMI, Sclerae nonicteric Neck: Supple, 2+ carotid pulse no bruit, No LAD, Without JVD or thyroid abnormality Respiratory: Clear to auscultation bilaterally, Normal air movement Cardiovascular: Regular rate/rhythm, Normal S1 S2 Capillary refill: <2 Seconds Gastrointestinal: Normal bowel sounds, Tenderness (Moderate left lower quadrant/suprapubic tenderness, mild generalized abdominal tenderness), Rebound Musculoskeletal: No tenderness Integumentary: No rashes Neurological: Normal speech, Normal strength at 5/5 x4 extr, Normal tone, Normal affect - Studies Laboratory Data (last 24 hrs) 09/09/22 21:16: Sodium 136, Potassium 3.9, BUN 17, Creatinine 1.19, Glucose 102, Total Bilirubin 0.4, AST 19, ALT 63 H, Alkaline Phosphatase 75, Lipase 45 09/09/22 21:16: WBC 18.30 H, Hgb 15.3, Hct 46.3, Plt Count 266 Assessment and Plan - Plan Assessment: Sepsis secondary to acute diverticulitis with microperforation Hypertension Plan: Sepsis secondary to acute diverticulitis with microperforation N.p.o., IVF, IV antibiotics with Zosyn, as needed pain medications. Surgical consult in place. Serial abdominal exams. Counseled on need for outpatient follow-up with GI/colonoscopy 6 to 8 weeks after discharge. Hypertension Patient reports he is previous on lisinopril, unknown dose has been off of it for some time now. Will monitor blood pressure during hospitalization, may require medication at discharge. DVT PPX: SCD Code status: Full Discharge Plan: Home Plan to discharge in: 72 Hours - Advance Directives Does patient have a Living Will: No Does patient have a Durable POA for Healthcare: No - Code Status/Comfort Care Code Status Assessed: Yes (Full code) Critical Care: No Time Spent Managing Pts Care (In Minutes): 70
--- NOTE | 2022-09-09 22:50 | EDPHYS ---
Physician Documentation [facility] Name: Miller Mullen Age: 32 yrs Sex: Male : 1990 Arrival Date: 09/09/2022 Time: 19:45 Bed 14 Private MD: ED Physician Moises Thomas HPI: 09/09 21:10 This 32 yrs old Male presents to ER via Ambulatory with complaints of Pain With cp Urination. 21:10 The patient presents with urinary symptoms, dysuria, suprapubic pain. cp 21:10 Onset: The symptoms/episode began/occurred this morning. Associated signs and symptoms: cp Pertinent positives: abdominal pain, nausea, chills, Pertinent negatives: constipation, diarrhea, fever, vomiting. Severity of symptoms: in the emergency department the symptoms are unchanged, despite home interventions. Historical: - Allergies: 20:02 Codeine; pf1 - PMHx: 20:02 Hypertension; pf1 - Immunization history:: Adult Immunizations up to date. - Social history:: Smoking status: Patient denies any tobacco usage or history of. Patient uses alcohol, occasionally. ROS: 21:15 Constitutional: Positive for body aches, chills, Negative for fever, poor PO intake. cp 21:15 Eyes: Negative for injury, pain, redness, and discharge. cp 21:15 ENT: Negative for drainage from ear(s), ear pain, sore throat, difficulty swallowing, difficulty handling secretions. 21:15 Cardiovascular: Negative for chest pain. 21:15 Respiratory: Negative for cough, shortness of breath, wheezing. 21:15 Abdomen/GI: Positive for abdominal pain, nausea, of the suprapubic area, right lower quadrant and left lower quadrant, Negative for vomiting, diarrhea, constipation. 21:15 Back: Negative for pain at rest, pain with movement. 21:15 Neuro: Negative for altered mental status. 21:15 All other systems are negative. Exam: 21:20 Constitutional: The patient appears in no acute distress, alert, awake, cp non-diaphoretic, non-toxic, well developed, well nourished, uncomfortable. 21:20 Head/Face: Normocephalic, atraumatic. cp 21:20 Eyes: Periorbital structures: appear normal, Conjunctiva: normal, no exudate, no injection, Sclera: no appreciated abnormality, Lids and lashes: appear normal, bilaterally. 21:20 ENT: External ear(s): are unremarkable, Nose: is normal, Mouth: Lips: moist, Oral mucosa: pink and intact, moist, Posterior pharynx: is normal, airway is patent, no erythema, no exudate. 21:20 Neck: ROM/movement: is normal, is supple, without pain, no range of motions limitations, no meningismus, no nuchal rigidity. 21:20 Chest/axilla: Inspection: normal. 21:20 Cardiovascular: Rate: tachycardic, Rhythm: regular. 21:20 Respiratory: the patient does not display signs of respiratory distress, Respirations: normal, no use of accessory muscles, no retractions, labored breathing, is not present, Breath sounds: are clear throughout, no decreased breath sounds, no stridor, no wheezing. 21:20 Abdomen/GI: Inspection: abdomen appears normal, Bowel sounds: active, all quadrants, Palpation: soft, in all quadrants, severe abdominal tenderness, in the suprapubic area and right lower quadrant, rebound tenderness, is not appreciated, voluntary guarding, is elicited in the suprapubic area and right lower quadrant. 21:20 Back: pain, is absent, ROM is normal. 21:20 Neuro: Orientation: to person, place \T\ time. Mentation: is normal, Motor: moves all fours, strength is normal, Sensation: is normal. 22:37 ECG was reviewed by the Attending Physician. Vital Signs: 19:56 BP 160 / 109; Pulse 113; Resp 18; Temp 98; Pulse Ox 97% ; Weight 145.15 kg; Height 6 pf1 ft. 5 in. ; Pain 10/10; 21:35 BP 128 / 109; Pulse 110; Resp 18 S; Pulse Ox 98% on R/A; lg3 23:13 BP 128 / 78; Pulse 129; Resp 18 S; Temp 100.6(O); Pulse Ox 98% on R/A; lg3 19:56 Body Mass Index 37.95 (145.15 kg, 195.58 cm) pf1 19:56 Pain Scale: Adult pf1 MDM: 20:05 Patient medically screened. cp 23:20 Data reviewed: vital signs, nurses notes, lab test result(s), radiologic studies, CT cp scan. 23:20 Consideration of Admission/Observation Patient was admitted/placed on observation. Post cp IV fluid administration reassessment for Sepsis: Client not prescribed the 30 mL/kg IVF due to: patient given 3 liters NS due to fact that with wt of 145 kg, patient would need to receive 4350 mL NS if 30 cc/kg were ordered Sepsis focused reassessment complete. Focused Assessment performed: September 09, 2022 at 23:20. 09/09 21:06 Order name: CBC with Diff; Complete Time: 21:57 cp 09/09 21:57 Interpretation: Normal except: WBC 18.30; PIYUSH% 76.4; LYM% 13.3; NEUT A 14.0; MNA 1.7. cp 09/09 21:06 Order name: CMP; Complete Time: 21:57 cp 09/09 21:06 Order name: Lipase; Complete Time: 21:57 cp 09/09 21:06 Order name: Urinalysis w/ reflexes; Complete Time: 21:57 cp 09/09 21:59 Order name: Lactate w/ 2H reflex if indic.; Complete Time: 23:16 cp 09/09 21:59 Order name: Procalcitonin cp 09/09 21:59 Order name: PT-INR; Complete Time: 23:16 cp 09/09 21:59 Order name: Blood Culture Adult (2) cp 09/09 22:32 Order name: Basic Metabolic Panel EDMS 09/09 22:32 Order name: Basic Metabolic Panel EDMS 09/09 22:32 Order name: Basic Metabolic Panel EDMS 09/09 22:32 Order name: Basic Metabolic Panel EDMS 09/09 22:32 Order name: Basic Metabolic Panel EDMS 09/09 22:32 Order name: CBC with Automated Diff EDMS 09/09 22:32 Order name: CBC with Automated Diff EDMS 09/09 22:32 Order name: CBC with Automated Diff EDMS 09/09 22:32 Order name: CBC with Automated Diff EDMS 09/09 22:32 Order name: CBC with Automated Diff EDMS 09/10 02:24 Order name: Lactate Sepsis 2 HR Follow-up EDMS 09/11 10:17 Order name: Gram Stain--Aerobic Bottle EDMS 09/09 21:06 Order name: CT Stone Protocol; Complete Time: 21:59 cp 09/10 14:43 Order name: CT EDMS 09/11 12:23 Order name: RAD EDMS 09/09 21:59 Order name: EKG; Complete Time: 21:59 cp 09/09 22:32 Order name: NPO; Complete Time: 02:13 EDMS 09/09 21:06 Order name: IV Saline Lock; Complete Time: 21:19 cp 09/09 21:06 Order name: Labs collected and sent; Complete Time: 21:19 cp 09/09 21:59 Order name: EKG - Nurse/Tech; Complete Time: 22:48 cp EC:37 Rate is 122 beats/min. Rhythm is regular. RI interval is normal. QRS interval is cp normal. QT interval is normal. Interpreted by me. Reviewed by me. Administered Medications: 21:43 Drug: NS 0.9% IV 1000 ml Route: IV; Rate: 1 bolus; Site: left antecubital; lg3 22:48 Follow up: IV Status: Completed infusion; IV Intake: 1000ml lg3 21:43 Drug: Ondansetron IVP 4 mg Route: IVP; Site: left antecubital; lg3 22:48 Follow up: Response: No adverse reaction; Marked relief of symptoms lg3 21:43 Drug: morphine IVP or IV 4 mg Route: IVP; Infused Over: 4 mins; Site: left antecubital; lg3 22:48 Follow up: Response: No adverse reaction; No change in condition lg3 22:53 Drug: Piperacillin-Tazobactam IVPB 3.375 grams Route: IVPB; Infused Over: 60 mins; lg3 Site: left antecubital; 09/10 02:14 Follow up: IV Status: Completed infusion; IV Intake: 100ml [facility] 09/09 22:53 Drug: HYDROmorphone IVP 1 mg Route: IVP; Site: left antecubital; 3 09/10 02:14 Follow up: Response: No adverse reaction; RASS: Alert and Calm (0) [facility] 09/09 22:53 Drug: metroNIDAZOLE IVPB 500 mg Volume: 100 ml; Route: IVPB; Infused Over: 30 mins; lg3 Site: left antecubital; 09/10 02:14 Follow up: IV Status: Completed infusion; IV Intake: 100ml [facility] 09/09 22:53 Drug: NS 0.9% IV 1000 ml Route: IV; Rate: 1000 ml; Site: left antecubital; 3 09/10 02:13 Follow up: IV Status: Completed infusion; IV Intake: 1000ml 3 09/09 22:55 Drug: NS 0.9% IV 1000 ml Route: IV; Rate: 1 bolus; Site: left antecubital; 3 09/10 02:14 Follow up: IV Status: Completed infusion; IV Intake: 1000ml 3 09/09 23:27 Drug: Acetaminophen PO 1000 mg Route: PO; lg3 Disposition Summary: 09/09/22 22:50 Hospitalization Ordered Hospitalization Status: Inpatient Admission cp Provider: Isacc Howard cp Condition: Stable cp Problem: new cp Symptoms: have improved cp Bed/Room Type: Standard cp Location: Telemetry/MedSurg (Inpatient)(09/11/22 17:53) bd Room Assignment: [facility](09/11/22 17:53) bd Diagnosis - Diverticulitis of Sigmoid Colon with Perforation cp - Severe sepsis without septic shock cp Forms: - Medication Reconciliation Form cp - SBAR form cp Signatures: Dispatcher [employer] EDMS Kristin Patino Lee, CAFETERIA ATTENDANT-C CAFETERIA ATTENDANT-Cla1 Anderson Skinner PA PA cp Nikki Nixon, RN RN cg Radha Hernandez, RN RN lg3 Rosemarie landry RN RN pf1 Corrections: (The following items were deleted from the chart) 22:50 22:50 Diverticulitis of large intestine with perforation and abscess cp cp 09/10 00:10 09/09 22:50 Telemetry/MedSurg (Inpatient) cp cg 09/10 00:10 09/09 22:50 cp cg 09/11 17:53 09/10 00:10 [facility] ER HOLD cg bd 09/11 17:53 09/10 00:10 ERHOLD- cg bd
[2022-09-09] MEDS ORDERED: NA CHLORIDE 0.9% 100 ML ONE (22:57)
[2022-09-09] MEDS ORDERED: METRONIDAZOLE 500mg IVPB 500 MG/100 ML BAG IV ONE (22:57)
[2022-09-09] MEDS ORDERED: HYDROMORPHONE HCL 1 MG/ML INJ ONE (22:57)
[2022-09-09] MEDS ORDERED: PIPERACIL/TAZO 3.375 GM VIAL IV ONE (22:57)
[2022-09-09 22:59] LABS: Protime INR 1.01
[2022-09-09] MEDS ORDERED: ACETAMINOPHEN 500 MG TAB ONE (23:24)
[2022-09-09] MEDS ORDERED: D5 0.45 NS 1,000 ML IV ONE (23:55)
[2022-09-10] VITALS: BMI 37.9
[2022-09-10] MEDS: PIPER TAZO 3.375 GM in NA CHLORIDE 0.9% 100 ML IV SCH ×3 (01:00→17:00)
[2022-09-10] MEDS: D5 0.45 NS 1,000 ML IV SCH ×4 (01:53→19:00)
[2022-09-10] MEDS: HYDROMORPHONE HCL 1 MG/ML INJ IV PRN ×4 (01:59→12:25)
[2022-09-10 02:00] LABS: Absolute Lymphocytes (CBC) 2.2 K/uL (0.7-4.9); Hematocrit 41.2 % (39.6-49.0); Lymphocytes % 12.5 % (15.3-44.8); MCV 89.7 fL (80-100); MPV 7.5 fL (7.6-11.3); RBC Red Blood Cell Count 4.59 M/uL (4.33-5.43)
[2022-09-10] MEDS ORDERED: HYDROMORPHONE HCL 1 MG/ML INJ ONE ×4 (02:00→12:39)
[2022-09-10] MEDS: ONDANSETRON 4 MG/2 ML VIAL IV PRN ×3 (02:00→21:20)
[2022-09-10] MEDS ORDERED: ONDANSETRON 4 MG/2 ML VIAL ONE ×4 (02:00→21:17)
[2022-09-10 02:22] LABS: Potassium 4.2 mEq/L (3.5-5.1)
--- NOTE | 2022-09-10 06:57 | P.PN ---
Date of Service: 09/10/22 Subjective: abdominal pain feels much worse today; stabbing pain feels more pressure + worsening abdominal tenderness complains of a real bad headache has not eaten since yesterday morning ~9-10 AM ROS: 10 point ROS as noted above, otherwise negative Physical Exam: GEN: Alert, oriented, NAD HEENT: Normal conjunctiva, sclera anicteric CV: Regular rate and rhythm, no edema Pulm: Nonlabored respirations on room air ABD: Soft, Moderate LLQ/suprapubic tenderness, mild generalized abdominal tenderness, Rebound MSK: No joint tenderness Integumentary: No rashes Neuro: Normal speech, normal affect vitals reviewed Problem List: Severe Sepsis secondary to acute diverticulitis Hypertension Plan: Sepsis secondary to acute diverticulitis CT 09/09 - Acute sigmoid diverticulitis had worsening pain, concern for increased perforation repeat CT 09/10 pending lactate 2.4. Repeat lactate 2.2 09/10 NPO continue IVF Continue IV antibiotics Pain medication as needed; increased 09/10 due to worsening abdominal pain General surgery consulted Serial abdominal exams Counseled on need for outpatient follow-up with GI/colonoscopy 6 to 8 weeks after discharge Hypertension Patient reports he is previous on lisinopril, unknown dose has been off of it for some time now. Will monitor BP may require medication at discharge VTE: SCD Code: Full Dispo: Home 72[address] Shelton consult. Dr. Hale updated
[2022-09-10] MEDS ORDERED: NA CHLORIDE 0.9% 100 ML ONE ×2 (09:16→16:47)
[2022-09-10] MEDS ORDERED: PIPERACIL/TAZO 3.375 GM VIAL IV ONE ×2 (09:16→16:47)
[2022-09-10] MEDS ORDERED: D5 0.45 NS 1,000 ML IV ONE (11:25)
--- NOTE | 2022-09-10 12:37 | EKG ---
Test Date: 2022-09-09 Test Time: 22:31:11 Digital Account Director: CHEMA MEASUREMENT RESULTS: Intervals: Rate: 122 ID: [id number] QRSD: 100 QT: 306 QTc: 436 Premium: P: 66 ID: [id number] QRS: 78 T: 29 INTERPRETIVE STATEMENTS: Sinus tachycardia Otherwise normal ECG No previous ECG available for comparison Electronically Signed On 09-10-22 12:36:13 CDT by Manuel Styles
--- NOTE | 2022-09-10 14:42 | RAD REPORT ---
EXAM DESCRIPTION: CT - Abdomen Pelvis Wo Contrast - 09/10/2022 2:32 pm CLINICAL HISTORY: Abdominal pain. perforation, r/o worsening COMPARISON: [facility] Protocol dated 09/09/2022 TECHNIQUE: CT imaging of the abdomen and pelvis was performed without contrast. Solid organ, bowel a nd vascular assessment is limited due to lack of IV and oral contrast. All CT scans are performed using dose optimization technique as appropriate and may include automated exposure control or mA/KV adjustment according to patient size. FINDINGS: The lower lung henao are clear. The liver is diffusely fatty. Spleen, pancreas, adrenal glands and kidneys are within normal limits f or a limited non-contrast examination. No bowel obstruction, free air, free fluid or abscess. Mild inflammation is seen surrounding the sigm oid colon where multiple diverticula are present. This appears slightly improved since prior study. . The appendix is normal. The osseous structures are within normal limits. IMPRESSION: There has been slight improvement in left lower quadrant sigmoid acute diverticulitis si nce preceding study. A limited non-contrast examination was performed as detailed.
[2022-09-10] MEDS: HYDROMORPHONE HCL 2 MG/ML inj IV PRN ×2 (15:35→21:20)
[2022-09-10] MEDS ORDERED: HYDROMORPHONE HCL 2 MG/ML inj ONE ×2 (16:12→21:17)
--- NOTE | 2022-09-10 17:04 | P.CNS ---
I have been asked to see this patient who came in last night in consultation. I was able to review his films in his chart. I never actually physically examined the patient. He had acute diverticulitis, was placed on appropriate antibiotics and was given pain medicine. In the interim time., Apparently his medical condition change. I recommended the repeat CT scan be done. Shows clinical improvement in the patient's condition. In the meantime Dr. Shelton was kind enough to see this patient as the family had requested him. 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 Because of this I will sign off the case. I have let Dr. Howard know and he is aware. Thank you.
[2022-09-11] MEDS ORDERED: D5 0.45 NS 1,000 ML IV ONE ×2 (00:33→11:37)
[2022-09-11] MEDS: PIPER TAZO 3.375 GM in NA CHLORIDE 0.9% 100 ML IV SCH ×3 (01:00→20:47)
[2022-09-11] MEDS ORDERED: PIPERACIL/TAZO 3.375 GM VIAL IV ONE ×2 (01:11→08:31)
[2022-09-11] MEDS ORDERED: NA CHLORIDE 0.9% 0 ML ONE (01:13)
[2022-09-11] MEDS ORDERED: NA CHLORIDE 0.9% 100 ML ONE ×2 (01:15→08:31)
[2022-09-11] MEDS: D5 0.45 NS 1,000 ML IV SCH ×3 (01:27→20:30)
[2022-09-11] MEDS ORDERED: HYDROMORPHONE HCL 2 MG/ML inj ONE ×2 (02:06→08:31)
[2022-09-11 02:45] LABS: Absolute Lymphocytes (CBC) 2.1 K/uL (0.7-4.9); Hematocrit 41.5 % (39.6-49.0); Lymphocytes % 13.6 % (15.3-44.8); MCV 90.2 fL (80-100); MPV 8.1 fL (7.6-11.3)
[2022-09-11] MEDS: HYDROMORPHONE HCL 2 MG/ML inj IV PRN ×3 (02:49→20:28)
[2022-09-11 02:58] LABS: Potassium 3.4 mEq/L (3.5-5.1)
[2022-09-11] MEDS ORDERED: ONDANSETRON 4 MG/2 ML VIAL ONE (08:31)
[2022-09-11] MEDS: ONDANSETRON 4 MG/2 ML VIAL IV PRN ×2 (08:42→20:32)
--- NOTE | 2022-09-11 11:36 | P.PN ---
Subjective Date of Service: 09/11/22 Chief Complaint: Diverticulitis with microperforation Subjective: Improving Review of Systems General: Fever (no), Chills (no), Malaise Eyes: Unremarkable ENT: Unremarkable Respiratory: Unremarkable Cardiovascular: Unremarkable Gastrointestinal: Nausea, Abdominal Pain, Distention, Melena (no), Hematochezia (no), As per HPI Genitourinary: Dysuria (no) Musculoskeletal: Unremarkable Integumentary: Unremarkable Physical Examination - Vital Signs Temperature: 98.2 F Blood Pressure: 126/78 Pulse: 89 Respirations: 18 Pulse Ox (%): 98 - Physical Exam General: Alert, In no apparent distress, Oriented x3, Cooperative HEENT: Normocephalic, PERRLA Neck: Supple Respiratory: Normal air movement Cardiovascular: No edema, Normal pulses Gastrointestinal: Hypoactive, No rebound, Distended, Guarding (LLQ) Musculoskeletal: No erythema, No tenderness, No warmth Integumentary: No rashes, No breakdown Neurological: Normal speech - Studies Microbiology Data (last 24 hrs): 09/09/22 22:25 Blood - Blood Blood Culture Gram Stain - Final Assessment And Plan - Plan abd x ray npo except water,ice oob to ambulate cont iv abx
--- NOTE | 2022-09-11 12:23 | RAD REPORT ---
EXAM DESCRIPTION: RAD - Abdomen W Erect - 09/11/2022 12:12 pm CLINICAL HISTORY: diverticulitis with microperforation f/u COMPARISON: Abdomen Pelvis Wo Contrast dated 09/10/2022; Stone Protocol dated 09/09/2022 FINDINGS: Nonobstructive bowel gas pattern. No acute osseous abnormality.Visualized lungs are unrema rkable.No abnormal calcifications. IMPRESSION: Nonobstructive bowel gas pattern. No free air identified.
[2022-09-11] MEDS: KCL 20 MEQ/100 mL IVPB 20 MEQ/100 ML BAG IV SCH ×2 (13:00→15:00)
[2022-09-11] MEDS ORDERED: KCL 20 MEQ/100 mL IVPB 200 ML IV ONE (13:09)
[2022-09-11] MEDS ORDERED: ACETAMIN/CAFFEINE/BUTALB TAB PO ONE ×2 (13:33→14:47)
--- NOTE | 2022-09-11 13:40 | P.PN ---
Subjective Date of Service: 09/11/22 Subjective: No new changes, No C/O voiced, Improving Patient is complaining of a headache. Patient denies any new complaints. Advancing diet ice chips and clear liquid Review of Systems 10-point ROS is otherwise unremarkable Physical Examination - Vital Signs Temperature: 98.0 F Blood Pressure: 128/88 Pulse: 88 Respirations: 18 Pulse Ox (%): 100 - Physical Exam General: Alert, In no apparent distress, Oriented x3 Respiratory: Clear to auscultation bilaterally, Normal air movement Cardiovascular: Regular rate/rhythm, Normal S1 S2 Gastrointestinal: Normal bowel sounds, Soft and benign, No rebound, No guarding, Tenderness Musculoskeletal: No tenderness Integumentary: No rashes Neurological: Normal speech, Normal tone, Normal affect Lymphatics: No axilla or inguinal lymphadenopathy - Studies Microbiology Data (last 24 hrs): 09/09/22 22:25 Blood - Blood Blood Culture Gram Stain - Final Medications List Reviewed: Yes Assessment & Plan - Problems (Diagnosis) (1) Diverticulitis of colon with perforation Current Visit: Yes Status: Acute - Plan -IV antibiotics -IV fluids -Surgery consultation appreciated -monitor labs -ice chips/water -Repeat abdominal film -Fioricet -Antiemetics Discharge Plan: Home Plan to discharge in: Greater than 2 days - Advance Directives Does patient have a Living Will: No Does patient have a Durable POA for Healthcare: No - Code Status/Comfort Care Code Status: Full Code Critical Care: No Time Spent Managing PTS Care (In Minutes): 35
--- NOTE | 2022-09-11 15:12 | CON ---
Date of Consultation: 09/11/2022 Diagnosis: Acute diverticulitis with microperforation. History Of Present Illness: This is the case of the 32-year-old patient, complaining of abdominal pa ins with 1 day of duration. Wake him up from sleep. The patient decided to come to the ER, found to have diverticulitis findings on CT scan with microperforation. Initially, the patient was consulted with Dr. Hale next day in the afternoon and the family decided to call me since I had taken care of the family in the past and Dr. Hale was kind enough to accept that and then the patient was hap py too. In that case, we have to evaluate the patient completely. The patient has pain worse than l ast night, so another CT scan was done requested by the primary doctor, but he still has the same fin dings with no free air in the abdomen. He has on and off constipation, but since the day before, he was having at least 7 episodes of loose stools before all this started. He denies any trauma. Denie s any dysuria, hematuria, hematochezia, melena. Denies any recent traveling out of the country. Den ies any family member sick at home. Review of Systems: Ten points otherwise unremarkable. Medical History: Hypertension. Family History: Noncontributory. Social History: He does not smoke. He does not drink alcohol. Allergies: NONE. Medications: None. Physical Examination: General: The patient awake, alert. HEENT: Pupils are equal and reactive. Anicteric. Neck: Supple. Chest: Clear. Heart: S1, S2. Abdomen: Soft and depressible. There is left lower quadrant tenderness with guarding. No rebound. Rectal: Deferred. Genitalia: Deferred. Extremities: Good capillary refill. Laboratory Data: Blood work shows a WBC count of 17.3, coming down from 18. CAT scan of the abdomen and pelvis initially done shows acute sigmoid diverticulitis with suggestion of microperf oration, focal enteritis and adjacent ileal loop and diffuse fatty liver. All these findings were di scussed with the patient and the patient's and the patient's mother present. He already has a s econd CT scan interpreted by Dr. Carranza as slight improvement in left lower quadrant sigmoid acute dive rticulitis. That was from the . Assessment: A 32-year-old patient with acute diverticulitis with microperforation. The patient full y explained the benefits, alternatives, and risks laparotomy, possible resection, possible ostomy, which include, but not limited to infection, bleeding, damage to adjacent structures, anesthe razia complication, hernias, NM, and even . He also understands this may not relieve any symptoms . He might need more than one surgical intervention. We have some improvement in his symptoms, so dayan sharp discussed with him also the options of the IV antibiotics and elective surgery if he does not devel op any free air in the diaphragm. He understands in the next few days we have to work toward that, aline sharp has to let us give the antibiotics and be compliance with no diet, trying to save him for an emerge nt surgery, although elective surgery will be decided once this area resolved and colonoscopy is done . He understands all the options. All the questions were answered to his satisfaction. SINA Voice ID: [id number] Report ID: [id number]
[2022-09-12] MEDS: PIPER TAZO 3.375 GM in NA CHLORIDE 0.9% 100 ML IV SCH ×3 (00:56→16:54)
[2022-09-12] MEDS: HYDROMORPHONE HCL 2 MG/ML inj IV PRN ×7 (00:56→23:41)
[2022-09-12] MEDS: D5 0.45 NS 1,000 ML IV SCH ×4 (00:56→23:29)
[2022-09-12 06:54] LABS: Absolute Lymphocytes (CBC) 2.7 K/uL (0.7-4.9); Hematocrit 41.9 % (39.6-49.0); Lymphocytes % 24.2 % (15.3-44.8); MCV 89.9 fL (80-100); MPV 7.9 fL (7.6-11.3); RBC Red Blood Cell Count 4.67 M/uL (4.33-5.43)
[2022-09-12 07:05] LABS: Albumin 3.3 g/dL (3.4-5.0); Bilirubin Total 0.7 mg/dL (0.2-1.0); Magnesium 2.3 mg/dL (1.6-2.4); Potassium 3.5 mEq/L (3.5-5.1); Protein, Total 7.8 g/dL (6.4-8.2)
[2022-09-12] MEDS: ACETAMIN/CAFFEINE/BUTALB TAB PO PRN (11:56)
--- NOTE | 2022-09-12 13:10 | P.PN ---
Subjective Date of Service: 09/12/22 Chief Complaint: Diverticulitis with microperforation Subjective: Ambulating, Improving Review of Systems General: Fever (no), Chills (no), Sweats (no), Malaise Eyes: Unremarkable ENT: Unremarkable Respiratory: Unremarkable Cardiovascular: Unremarkable Gastrointestinal: Abdominal Pain (better), Melena (no), Hematochezia (no) Genitourinary: Unremarkable Physical Examination - Vital Signs Temperature: 97.0 F Blood Pressure: 124/72 Pulse: 76 Respirations: 14 Pulse Ox (%): 96 - Physical Exam General: Alert, In no apparent distress, Oriented x3, Cooperative HEENT: PERRLA Neck: Supple Cardiovascular: No edema Gastrointestinal: No rebound, Tenderness (LLQ improved) Integumentary: No rashes, No breakdown Neurological: Normal speech - Studies Microbiology Data (last 24 hrs): 09/09/22 22:25 Blood - Blood Blood Culture Gram Stain - Final Medications List Reviewed: Yes Assessment And Plan - Plan abd x ray advance diet to full liquid oob to ambulate cont iv abx
[2022-09-12] MEDS: ONDANSETRON 4 MG/2 ML VIAL IV PRN (13:48)
[2022-09-13] MEDS: PIPER TAZO 3.375 GM in NA CHLORIDE 0.9% 100 ML IV SCH ×3 (00:42→16:02)
[2022-09-13] MEDS: D5 0.45 NS 1,000 ML IV SCH ×3 (02:43→20:49)
[2022-09-13] MEDS: HYDROMORPHONE HCL 2 MG/ML inj IV PRN ×8 (02:52→23:43)
[2022-09-13 03:40] LABS: Absolute Lymphocytes (CBC) 2.4 K/uL (0.7-4.9); Hematocrit 41.5 % (39.6-49.0); Lymphocytes % 26.7 % (15.3-44.8); MCV 89.9 fL (80-100); MPV 8.1 fL (7.6-11.3); RBC Red Blood Cell Count 4.62 M/uL (4.33-5.43)
[2022-09-13 04:11] LABS: Potassium 3.5 mEq/L (3.5-5.1)
[2022-09-13] MEDS: ACETAMIN/CAFFEINE/BUTALB TAB PO PRN (06:35)
[2022-09-13] MEDS ORDERED: PIPERACIL/TAZO 3.375 GM VIAL IV ONE (07:16)
[2022-09-13] MEDS ORDERED: POTASSIUM 25 MEQ EFFERV TAB PO ONE (09:00)
--- NOTE | 2022-09-13 10:38 | P.PN ---
Date of Service: 09/12/22 Subjective Patient is doing better. Clinical symptoms are improved. Patient denies any new complaints. No signs of perforation on repeat CAT scan with significant improvement. Advancing diet. Review of Systems 10-point ROS is otherwise unremarkable Physical Examination - Vital Signs Reviewed - Physical Exam General: Alert, In no apparent distress, Oriented x3 Respiratory: Clear to auscultation bilaterally, Normal air movement Cardiovascular: Regular rate/rhythm, Normal S1 S2 Gastrointestinal: Normal bowel sounds, Soft and benign, No rebound, No guarding, Tenderness Neurological: Normal speech, Normal tone, Normal affect Assessment & Plan - Problems (Diagnosis) (1) Diverticulitis of colon with perforation Current Visit: Yes Status: Acute - Plan Plan of care as mentioned below: -IV antibiotics -IV fluids -Surgery consultation appreciated -monitor labs -ice chips/water -Repeat abdominal film -Fioricet -Antiemetics
--- NOTE | 2022-09-13 10:42 | P.PN ---
Date of Service: 09/13/22 Subjective Patient still complaining of pain. Still having a headache. Patient with vague abdominal complaints. No rebound or guarding. CT scan with no evidence of perforation. At this time we will continue with antibiotic therapy and advancing diet. Anticipate discharge over the next 24 to 48 hours if surgery is agreeable. Review of Systems 10-point ROS is otherwise unremarkable Physical Examination - Vital Signs Reviewed - Physical Exam General: Alert, In no apparent distress, Oriented x3 Respiratory: Clear to auscultation bilaterally, Normal air movement Cardiovascular: Regular rate/rhythm, Normal S1 S2 Gastrointestinal: Normal bowel sounds, Soft and benign, No rebound, No guarding, Tenderness Neurological: Normal speech, Normal tone, Normal affect Assessment & Plan - Problems (Diagnosis) (1) Diverticulitis of colon with perforation Current Visit: Yes Status: Acute - Plan Plan of care as mentioned below: -IV antibiotics -IV fluids -Surgery consultation appreciated -monitor labs -ice chips/water -Repeat abdominal film -Fioricet -Antiemetics
[2022-09-13] MEDS ORDERED: POTASSIUM CL SA 10 MEQ TAB PO ONE (15:30)
[2022-09-13] MEDS: DOCUSATE NA 100 MG CAP PO SCH (20:49)
[2022-09-14] MEDS: PIPER TAZO 3.375 GM in NA CHLORIDE 0.9% 100 ML IV SCH ×2 (00:37→08:06)
[2022-09-14] MEDS: HYDROMORPHONE HCL 2 MG/ML inj IV PRN ×3 (02:49→08:32)
[2022-09-14 04:04] LABS: Potassium 3.8 mEq/L (3.5-5.1)
[2022-09-14] MEDS: DOCUSATE NA 100 MG CAP PO SCH (08:05)
[2022-09-14] MEDS: D5 0.45 NS 1,000 ML IV SCH (08:06)
[2022-09-14] MEDS ORDERED: POTASSIUM CL SA 10 MEQ TAB PO ONE (09:00)
[2022-09-14 09:28] VITALS: O2SAT 95
[2022-09-14 10:06] VITALS: BP 124/76; TEMP 96.9
== END 2022-09-14 12:07 | disposition home or self-care (01) | DRG 872 ==
LOC: ER 19:45 → ERHOLD 22:26 → 2ND 09-11 18:27
PROVIDERS: ADMIT Hospitalist; ATTEND Hospitalist
DX: A41.9 Sepsis, unspecified organism (principal); K57.20 Diverticulitis of large intestine with perforation and abscess without bleeding; R65.20 Severe sepsis without septic shock; I10 Essential (primary) hypertension; K52.9 Noninfective gastroenteritis and colitis, unspecified; Z88.5 Allergy status to narcotic agent; Z79.899 Other long term (current) drug therapy
CPT/HCPCS: 36415; 74019; 74176; 76377; 80048; 80053; 81003; 83605; 83690; 83735; 84132; 84145; 85025; 85610; 87040; 87205; 93005; 96361; 96365; 96366; 96368; 96375; 99285; J1170; J2405; J2543; J3480; J7030; J7799

== ENCOUNTER 2022-11-14 06:10 | Day surgery (SDC) | payer OTHER ==
[2022-11-14] MEDS ORDERED: Ringers Lactate 1,000 ML IV ONE (06:44)
[2022-11-14] MEDS ORDERED: propofoL 200 MG/20 ML VIAL IV ONE ×2 (07:05→07:52)
[2022-11-14] MEDS ORDERED: LIDOCAINE 1% MPF 5 ML VIAL ONE (07:05)
[2022-11-14 08:12] VITALS: TEMP 97.2
[2022-11-14 08:17] VITALS: BP 124/69; O2SAT 97
== END 2022-11-14 08:17 | disposition home or self-care (01) ==
LOC: OR 06:10
PROVIDERS: ATTEND Surgery
PROC: 0DJD8ZZ Inspection of Lower Intestinal Tract, Via Natural or Artificial Opening Endoscopic (ICD-10-PCS; principal; 2022-11-14 07:30)
DX: Z12.11 Encounter for screening for malignant neoplasm of colon (principal); K57.30 Diverticulosis of large intestine without perforation or abscess without bleeding; K64.4 Residual hemorrhoidal skin tags; K64.8 Other hemorrhoids
CPT/HCPCS: 45378; J2704 ×2; J2001; J7120

== ENCOUNTER → 2023-06-09 | Emergency (ER) | payer OTHER ==
[~2023-06-09] MED LIST: CIPROFLOXACIN 400mg IV 400 MG/200 ML BAG IV ONE; FAMOTIDINE 20 MG/2 ML VIAL IV ONE; HYDROMORPHONE HCL 0.5 MG/0.5 ML INJ ONE; KETOROLAC 30 MG/ML INJ ONE; METRONIDAZOLE 500mg IVPB 500 MG/100 ML BAG IV ONE; MORPHINE 4 MG/ML SYR ONE; NA CHLORIDE 0.9% 1,000 ML ONE; ONDANSETRON 4 MG/2 ML VIAL ONE
--- OUTSIDE RECORDS SUMMARY | 2023-06-09 12:21 | XMS REPORT | Continuity of Care Document ---
Author Name Unknown Address [address] [place] [address] [facility] Address [address] [place] [address] Care Team Providers Care Poker Dealer Name Role Phone Melina BOYCE, Linda Conway Attending Clinician [phone] Meka Hoyos Attending Clinician [phone] Oswaldo Flowers DO Attending Clinician [phone] Dc WREN, Dorcas Forde Attending Clinician Smiley delgado Payers Payer Name Policy Type Policy Number Effective Date Expirati on Date Source [employer] CHOICE POS II [id number] 2018 00:00:00 Allergies, Adverse Reactions, Alerts Allergy Name Allergy Type Status Severity Reaction(s) Onset Date Inactive Date Treating Clinician Comments Source [facility] Active Hives 10-17 00:00: 00 [facility] Encounters Start Date/Time End Date/Time Encounter Type Admission Type Attending Clinicians Care Facility Care Department Encounter ID Source 2021-03-25 07:53:44 Emergency [facility] [id number] [facility] 2021-03-24 21:12:32 Emergency [facility] [id number] [facility] 2021-03-23 19:33:27 Emergency [facility] [id number] [facility] 2020-04-20 20:31:00 2020-04-20 20:46:00 Emergency Linda Summers [facility] [id number] 2020-02-29 19:24:00 2020-02-29 22:07:00 Emergency Franklin Jimenezn Tyrese [facility] [id number] 2019-09-24 15:40:58 2019-09-24 19:38:00 Emergency FlowersOswaldo [facility] [id number] 2019-09-24 00:00:00 2019-09-24 00:00:00 Telephone Dorcas Irwin [facility] [id number]
[2023-06-09 12:54] LABS: Absolute Lymphocytes (CBC) 3.3 K/uL (0.7-4.9); Hematocrit 46.1 % (39.6-49.0); MCV 88.9 fL (80-100); Platelets 270 thou/uL (152-406); RBC Red Blood Cell Count 5.19 M/uL (4.33-5.43)
[2023-06-09 13:09] LABS: Bilirubin Total 0.6 mg/dL (0.2-1.0); Potassium 3.5 mEq/L (3.5-5.1); Protein, Total 8.1 g/dL (6.4-8.2)
--- NOTE | 2023-06-09 14:20 | RAD REPORT ---
EXAM DESCRIPTION: CT - Abdomen Pelvis W Contrast - 06/09/2023 2:05 pm CLINICAL HISTORY: Abdominal pain COMPARISON: August 2022 TECHNIQUE: Computed axial tomography of the abdomen pelvis was obtained. 100 cc Isovue-300 was admin istered intravenously. Oral contrast was not requested which limits evaluation of bowel and appendix All CT scans are performed using dose optimization technique as appropriate and may include automated exposure control or mA/KV adjustment according to patient size. FINDINGS: Fatty liver Spleen, pancreas, adrenal and kidneys appear unremarkable. There is no evidence of diverticulitis. Normal appendix A tiny umbilical hernia. Small inguinal hernias IMPRESSION: No acute abnormality is displayed.
[2023-06-09 15:07] LABS: Specific Gravity 1.008 (1.005-1.030); Urine Bilirubin NEGATIVE (Negative); Urine Blood Negative (Negative); Urine Clarity Clear (Clear); Urine Color Colorless (Yellow); Urine Glucose NEGATIVE (Negative); Urine Protein NEGATIVE (Negative); Urine Urobilinogen Normal (Normal); Urine pH 6.5 (5.0-7.0)
--- NOTE | 2023-06-09 15:10 | EDPHYS ---
Physician Documentation [facility] Name: Miller Mullen Age: 33 yrs Sex: Male : 1990 Arrival Date: 06/09/2023 Time: 12:19 Bed 18 Private MD: ED Physician Anderson Nunez HPI: 06/09 15:03 This 33 yrs old Male presents to ER via Ambulatory with complaints of Bloody tre Stools, Abdominal Pain. 15:03 The patient presents with abdominal pain right lower quadrant. Onset: The tre symptoms/episode began/occurred 1 day(s) ago. Historical: - Allergies: 12:30 Codeine; cm10 - PMHx: 12:30 Hypertension; cm10 - Immunization history:: Adult Immunizations up to date. - Social history:: Smoking status: Patient denies any tobacco usage or history of. ROS: 15:04 Constitutional: Negative for fever, chills, and weight loss, Eyes: Negative for injury, tre pain, redness, and discharge, ENT: Negative for injury, pain, and discharge, Neck: Negative for injury, pain, and swelling, Cardiovascular: Negative for chest pain, palpitations, and edema, Respiratory: Negative for shortness of breath, cough, wheezing, and pleuritic chest pain, Back: Negative for injury and pain, : Negative for injury, bleeding, discharge, and swelling, MS/Extremity: Negative for injury and deformity, Skin: Negative for injury, rash, and discoloration, Neuro: Negative for headache, weakness, numbness, tingling, and seizure, Psych: Negative for depression, anxiety, suicide ideation, homicidal ideation, and hallucinations, Allergy/Immunology: Negative for hives, rash, and allergies, Endocrine: Negative for neck swelling, polydipsia, polyuria, polyphagia, and marked weight changes, Hematologic/Lymphatic: Negative for swollen nodes, abnormal bleeding, and unusual bruising, 15:04 Abdomen/GI: Positive for abdominal pain, of the right lower quadrant, Exam: 15:04 Constitutional: This is a well developed, well nourished patient who is awake, alert, tre and in no acute distress. Head/Face: Normocephalic, atraumatic. Eyes: Pupils equal round and reactive to light, extra-ocular motions intact. Lids and lashes normal. Conjunctiva and sclera are non-icteric and not injected. Cornea within normal limits. Periorbital areas with no swelling, redness, or edema. ENT: Nares patent. No nasal discharge, no septal abnormalities noted. Tympanic membranes are normal and external auditory canals are clear. Oropharynx with no redness, swelling, or masses, exudates, or evidence of obstruction, uvula midline. Mucous membranes moist. Neck: Trachea midline, no thyromegaly or masses palpated, and no cervical lymphadenopathy. Supple, full range of motion without nuchal rigidity, or vertebral point tenderness. No Meningismus. Chest/axilla: Normal chest wall appearance and motion. Nontender with no deformity. No lesions are appreciated. Cardiovascular: Regular rate and rhythm with a normal S1 and S2. No gallops, murmurs, or rubs. Normal PMI, no JVD. No pulse deficits. Respiratory: Lungs have equal breath sounds bilaterally, clear to auscultation and percussion. No rales, rhonchi or wheezes noted. No increased work of breathing, no retractions or nasal flaring. Back: No spinal tenderness. No costovertebral tenderness. Full range of motion. Male : Normal genitalia with no discharge or lesions. Skin: Warm, dry with normal turgor. Normal color with no rashes, no lesions, and no evidence of cellulitis. MS/ Extremity: Pulses equal, no cyanosis. Neurovascular intact. Full, normal range of motion. Neuro: Awake and alert, GCS 15, oriented to person, place, time, and situation. Cranial nerves II-XII grossly intact. Motor strength 5/5 in all extremities. Sensory grossly intact. Cerebellar exam normal. Normal gait. Psych: Awake, alert, with orientation to person, place and time. Behavior, mood, and affect are within normal limits. 15:04 Abdomen/GI: Inspection: distension, that is mild, Bowel sounds: active, Palpation: mild abdominal tenderness, moderate abdominal tenderness, in the right lower quadrant, Liver: no appreciated palpable abnormalities, Hernia: not appreciated, 15:04 : CVA tenderness, is absent, Male external genitalia: normal, Circumcision noted. Bladder: is normal, Sexual behavior: the patient is sexually active, and reports a single partner, 15:12 Abdomen/GI: Rectal exam: Prostate: normal, rectal tone normal, Stool: guaiac negative, tre hemorrhoid(s), are not appreciated, mass, is not appreciated, swelling, is not appreciated, tenderness, is not appreciated, fecal impaction, is not appreciated, the exam is chaperoned by a family member, Vital Signs: 12:28 BP 163 / 110; Pulse 103; Resp 18; Temp 98.2; Pulse Ox 100% on R/A; Weight 149.69 kg; cm10 Height 6 ft. 5 in. ; Pain 8/10; 13:52 BP 136 / 81; Pulse 67; Resp 16 S; Pulse Ox 98% on R/A; kc6 14:54 Pulse 81; Resp 15 S; Pulse Ox 100% on R/A; kc6 12:28 Body Mass Index 39.13 (149.69 kg, 195.58 cm) cm10 12:28 Pain Scale: Adult cm10 MDM: 12:23 Patient medically screened. tre 12:29 Patient medically screened. tre 15:05 Differential diagnosis: appendicitis, bowel obstruction, gastritis, Mesenteric ischemia tre or infarction, non-specific abd pain, pancreatitis, Peritonitis. Data reviewed: vital signs, nurses notes, lab test result(s), radiologic studies, CT scan. Consideration of Admission/Observation Escalation of care including admission/observation considered. I considered the following discharge prescriptions or medication management in the emergency department Medications were administered in the Emergency Department. See MAR. Independent interpretation of the following test(s) in the Emergency Department CT Scan: My interpretation is CT ABD PELVIS. Test considered but Not performed: Ultrasound NO ABD USG. Care significantly affected by the following chronic conditions: Hypertension, Obesity. Counseling: I had a detailed discussion with the patient and/or guardian regarding the historical points, exam findings, and any diagnostic results supporting the discharge/admit diagnosis, lab results, radiology results, the need for outpatient follow up, for definitive care, a family practitioner, a general car yard supervisor. 06/09 12:24 Order name: CBC with Diff; Complete Time: 13:44 [facility] 06/09 12:24 Order name: CMP; Complete Time: 13:44 [facility] 06/09 12:24 Order name: Lipase; Complete Time: 13:44 [facility] 06/09 14:45 Order name: Urinalysis w/ reflexes 06/09 12:24 Order name: CT Abd/Pelvis - IV Contrast Only; Complete Time: 14:44 [facility] 06/09 12:24 Order name: IV Saline Lock; Complete Time: 12:45 tre 06/09 12:24 Order name: Labs collected and sent; Complete Time: 12:45 tre Administered Medications: 12:49 Drug: NS 0.9% IV 1000 ml IV at 1 bolus Per protocol; 1000 mL bolus Route: IV; Rate: 1 kc6 bolus; Site: right antecubital; 14:55 Follow up: Response: No adverse reaction; IV Status: Completed infusion; IV Intake: kc6 1000ml 12:49 Drug: morphine IVP or IV 4 mg IVP once over 4 mins Route: IVP; Infused Over: 4 mins; kc6 Site: right antecubital; 13:52 Follow up: Response: No adverse reaction; Pain is unchanged, physician notified; RASS: kc6 Alert and Calm (0) 12:50 Drug: Famotidine IVP 20 mg IVP once; dilute with 10 mL 0.9% NaCl; give over 2 minutes kc6 Route: IVP; Site: right antecubital; 13:52 Follow up: Response: No adverse reaction kc6 12:50 Drug: Ondansetron IVP 4 mg IVP once; over 2 minutes Route: IVP; Site: right antecubital;kc6 13:52 Follow up: Response: No adverse reaction kc6 12:50 Drug: Ciprofloxacin IVPB 400 mg 200 ml IVPB once over 60 mins Volume: 200 ml; Route: kc6 IVPB; Infused Over: 60 mins; Site: right antecubital; 14:55 Follow up: Response: No adverse reaction; IV Status: Completed infusion; IV Intake: kc6 200ml 12:50 Drug: metroNIDAZOLE IVPB 500 mg 100 ml IVPB at 200 ml/hr once over 30 mins Volume: 100 kc6 ml; Route: IVPB; Rate: 200 ml/hr; Infused Over: 30 mins; Site: right antecubital; 14:27 Follow up: Response: No adverse reaction; IV Status: Completed infusion; IV Intake: kc6 100ml 15:11 Drug: Ketorolac IVP 30 mg IVP once Route: IVP; Site: right antecubital; kc6 15:32 Follow up: Response: No adverse reaction; Pain is decreased kc6 Disposition Summary: 06/09/23 15:09 Discharge Ordered Notes: Location: Home tre Problem: new tre Symptoms: have improved tre Condition: Stable tre Diagnosis - Abdominal tenderness tre - GI Bleed/ Gastrointestinal hemorrhage, unspecified - LOWER tre - Right lower quadrant abdominal tenderness tre Followup: tre - With: Private Physician - When: 2 - 3 days - Reason: Recheck today's complaints, Continuance of care, Re-evaluation by your physician Followup: tre - With: Gokul Shelton MD - When: 2 - 3 days - Reason: Recheck today's complaints, Re-evaluation by your physician Followup: tre - With: Xin Melendez MD - When: 2 - 3 days - Reason: Recheck today's complaints, Re-evaluation by your physician Discharge Instructions: - Discharge Summary Sheet tre - Abdominal Pain, Adult tre - Gastrointestinal Bleeding tre - Rectal Bleeding tre - Abdominal Pain, Adult, [id number] tre - Rectal Bleeding, [id number] tre - Lower Gastrointestinal Bleeding [facility] Forms: - Medication Reconciliation Form [facility] - Thank You Letter tre - Antibiotic Education tre - Prescription Opioid Use tre - Patient Portal Instructions tre - Leadership Thank You Letter tre - Work release form kc6 Prescriptions: - ondansetron 4 mg Oral Tablet,disintegrating - take 1 tablet ORAL route every 6 to 8 hours for 5 days; 20 tablet; Refills: 0, [facility] Product Selection Permitted - Colace 100 mg Oral Tablet - take 1 tablet ORAL route every 12 hours; 14 tablet; Refills: 0, Product [facility] Selection Permitted - Flagyl 500 mg Oral tablet - take 1 tablet ORAL route every 8 hours for 7 days; 28 tablet; Refills: 0, [facility] Product Selection Permitted - Cipro 500 mg Oral Tablet - take 1 tablet ORAL route every 12 hours for 7 days; 14 tablet; Refills: 0, [facility] Product Selection Permitted - dicyclomine 20 mg Oral tablet - take 1 tablet ORAL route 4 times per day; 28 tablet; Refills: 0, Product [facility] Selection Permitted Signatures: Dispatcher [employer] Anderson Hudson MD MD cha Campbell, Kaitlyn RN RN kc6 Lynette Shelton RN RN cm10
--- NOTE | 2023-06-09 15:10 | ER ---
Nurse's Notes [facility] Name: Miller Mullen Age: 33 yrs Sex: Male : 1990 Arrival Date: 06/09/2023 Time: 12:19 Bed 18 Private MD: Diagnosis: Abdominal tenderness;GI Bleed/ Gastrointestinal hemorrhage, unspecified-LOWER;Right lower quadrant abdominal tenderness Presentation: 06/09 12:28 Chief complaint: Patient states: RLQ abdominal pain onset last night. pt states that he cm10 had one episode of bright red blood in stool. Pt reports that he has has history of a perforated colon last month and the pain feels similar. Coronavirus screen: Vaccine status: Patient reports receiving the 2nd dose of the covid vaccine. Client denies travel out of the [place] in the last 14 days. Ebola Screen: Patient denies travel to an Ebola-affected area in the 21 days before illness onset. No symptoms or risks identified at this time. Initial Sepsis Screen: Does the patient meet any 2 criteria? No. Patient's initial sepsis screen is negative. Does the patient have a suspected source of infection? No. Patient's initial sepsis screen is negative. Risk Assessment: Do you want to hurt yourself or someone else? Patient reports no desire to harm self or others. Onset of symptoms was June 09, 2023. 12:28 Method Of Arrival: Ambulatory 10 12:28 Acuity: MT 3 cm10 Historical: - Allergies: 12:30 Codeine; cm10 - PMHx: 12:30 Hypertension; cm10 - Immunization history:: Adult Immunizations up to date. - Social history:: Smoking status: Patient denies any tobacco usage or history of. Screenin:30 [facility] ED Fall Risk Assessment (Adult) History of falling in the last 3 months, kc6 including since admission No falls in past 3 months (0 pts) Confusion or Disorientation No (0 pts) Intoxicated or Sedated No (0 pts) Impaired Gait No (0 pts) Mobility Assist Device Used No (0 pt) Altered Elimination No (0 pt) Score/Fall Risk Level 0 - 2 = Low Risk. Abuse screen: Denies threats or abuse. Denies injuries from another. Nutritional screening: No deficits noted. Tuberculosis screening: No symptoms or risk factors identified. Assessment: 12:30 General: Appears in no apparent distress. uncomfortable, well groomed, well developed, kc6 Behavior is calm, cooperative, appropriate for age. Pain: Complains of pain in right lower quadrant. Neuro: Level of Consciousness is awake, alert, obeys commands, Oriented to person, place, time, situation, Appropriate for age. Cardiovascular: Capillary refill < 3 seconds. Respiratory: Airway is patent Trachea midline Respiratory effort is even, unlabored, Respiratory pattern is regular, symmetrical. GI: Reports lower abdominal pain, diarrhea, bloody stool, Patient currently denies nausea, vomiting. : No signs and/or symptoms were reported regarding the genitourinary system. EENT: No signs and/or symptoms were reported regarding the EENT system. Derm: No signs and/or symptoms reported regarding the dermatologic system. Skin is intact, is healthy with good turgor, Skin is pink, warm \T\ dry. Musculoskeletal: No signs and/or symptoms reported regarding the musculoskeletal system. Circulation, motion, and sensation intact. Capillary refill < 3 seconds, Range of motion: intact in all extremities. 13:30 Reassessment: Patient appears in no apparent distress at this time. No changes from kc6 previously documented assessment. Patient and/or family updated on plan of care and expected duration. Pain level reassessed. Patient is alert, oriented x 3, equal unlabored respirations, skin warm/dry/pink. 14:30 Reassessment: Patient appears in no apparent distress at this time. No changes from kc6 previously documented assessment. Patient and/or family updated on plan of care and expected duration. Pain level reassessed. Patient is alert, oriented x 3, equal unlabored respirations, skin warm/dry/pink. 15:32 Reassessment: Patient appears in no apparent distress at this time. No changes from kc6 previously documented assessment. Patient and/or family updated on plan of care and expected duration. Pain level reassessed. Patient is alert, oriented x 3, equal unlabored respirations, skin warm/dry/pink. Vital Signs: 12:28 BP 163 / 110; Pulse 103; Resp 18; Temp 98.2; Pulse Ox 100% on R/A; Weight 149.69 kg; cm10 Height 6 ft. 5 in. ; Pain 8/10; 13:52 BP 136 / 81; Pulse 67; Resp 16 S; Pulse Ox 98% on R/A; kc6 14:54 Pulse 81; Resp 15 S; Pulse Ox 100% on R/A; kc6 12:28 Body Mass Index 39.13 (149.69 kg, 195.58 cm) cm10 12:28 Pain Scale: Adult cm10 ED Course: 03:00 Patient has correct armband on for positive identification. Placed in gown. Bed in low kc6 position. Call light in reach. Side rails up X 1. Client placed on continuous cardiac and pulse oximetry monitoring. NIBP monitoring applied. 12:21 Patient arrived in ED. rg4 12:23 Anderson Nunez MD is Attending Physician. tre 12:29 Cherise Singleton, SIENA is Primary Nurse. kc6 12:30 Triage completed. cm10 12:30 Arm band placed on Patient placed in an exam room, on a stretcher. cm10 12:45 CBC with Diff Sent. bc6 12:45 CMP Sent. bc6 12:45 Lipase Sent. bc6 12:45 Inserted saline lock: 20 gauge in right antecubital area, using aseptic technique. bc6 Blood collected. 14:07 CT Abd/Pelvis - IV Contrast Only In Process Unspecified. EDMS 15:07 Gokul Shelton MD is Referral Physician. tre 15:08 Xin Melendez MD is Referral Physician. tre 15:34 No provider procedures requiring assistance completed. IV discontinued, intact, kc6 bleeding controlled, No redness/swelling at site. Pressure dressing applied. Administered Medications: 12:49 Drug: NS 0.9% IV 1000 ml IV at 1 bolus Per protocol; 1000 mL bolus Route: IV; Rate: 1 kc6 bolus; Site: right antecubital; 14:55 Follow up: Response: No adverse reaction; IV Status: Completed infusion; IV Intake: kc6 1000ml 12:49 Drug: morphine IVP or IV 4 mg IVP once over 4 mins Route: IVP; Infused Over: 4 mins; kc6 Site: right antecubital; 13:52 Follow up: Response: No adverse reaction; Pain is unchanged, physician notified; RASS: kc6 Alert and Calm (0) 12:50 Drug: Famotidine IVP 20 mg IVP once; dilute with 10 mL 0.9% NaCl; give over 2 minutes kc6 Route: IVP; Site: right antecubital; 13:52 Follow up: Response: No adverse reaction kc6 12:50 Drug: Ondansetron IVP 4 mg IVP once; over 2 minutes Route: IVP; Site: right antecubital;kc6 13:52 Follow up: Response: No adverse reaction kc6 12:50 Drug: Ciprofloxacin IVPB 400 mg 200 ml IVPB once over 60 mins Volume: 200 ml; Route: kc6 IVPB; Infused Over: 60 mins; Site: right antecubital; 14:55 Follow up: Response: No adverse reaction; IV Status: Completed infusion; IV Intake: kc6 200ml 12:50 Drug: metroNIDAZOLE IVPB 500 mg 100 ml IVPB at 200 ml/hr once over 30 mins Volume: 100 kc6 ml; Route: IVPB; Rate: 200 ml/hr; Infused Over: 30 mins; Site: right antecubital; 14:27 Follow up: Response: No adverse reaction; IV Status: Completed infusion; IV Intake: kc6 100ml 15:11 Drug: Ketorolac IVP 30 mg IVP once Route: IVP; Site: right antecubital; kc6 15:32 Follow up: Response: No adverse reaction; Pain is decreased kc6 Medication: 15:35 VIS not applicable for this client. kc6 Intake: 14:27 IV: 100ml; Total: 100ml. kc6 14:55 IV: 200ml; Total: 300ml. kc6 14:55 IV: 1000ml; Total: 1300ml. kc6 Outcome: 15:09 Discharge ordered by . tre 15:35 Discharged to home ambulatory, with significant other, kc6 15:35 Condition: good 15:35 Discharge instructions given to patient, significant other, Instructed on discharge instructions, follow up and referral plans. medication usage, Demonstrated understanding of instructions, follow-up care, medications, Prescriptions given X 5 15:35 Patient left the ED. kc6 Signatures: Dispatcher [employer] EDAnderson Rueda MD MD cha Garcia, Rubi rg4 Cherise Singleton RN RN kc6 Sydnee Kirkland6 Lynette Shelton RN RN cm10
[2023-06-09 15:52] VITALS: BP 136/81; TEMP 98.2
[2023-06-09 16:07] VITALS: O2SAT 100
== END ==
LOC: ER 12:19
DX: R10.813 Right lower quadrant abdominal tenderness (principal); K92.2 Gastrointestinal hemorrhage, unspecified; I10 Essential (primary) hypertension; Z88.5 Allergy status to narcotic agent
CPT/HCPCS: 96365; 96368; 85025; 36415; 81003; 83690; 80053; 74177; 96375; 99284; 96366; Q9967; J2405; J0744; J7030

== ENCOUNTER 2023-06-10 17:15 | Inpatient (IN) | payer OTHER ==
--- OUTSIDE RECORDS SUMMARY | 2023-06-10 17:17 | XMS REPORT | Continuity of Care Document ---
Author Name Unknown Address [address] [facility] [address] [place] [address] [facility] thconnect Address [address] [facility] [address] [place] [address] Care Team Providers Care Forest Worker Name Role Phone Pcp, Patient Does Not Have A Primary Care Physic shon CODY PARHAM Attending Clinician Unavailable Linda Summers MD Attending Clinician [phone] Meka Hoyos Attending Clinician [phone] Oswaldo Flowers DO Attending Clinician [phone] Dc WREN, Dorcas Forde Attending Clinician Smiley delgado Payers Payer Name Policy Type Policy Number Effective Date Expirati on Date Source AETNA CHOICE POS II [id number] 2018 00:00:00 [employer] II [id number] 2022 00:00:00 Problems Condition Name Condition Details Condition Category Status Onset Date Resolution Date Last Treatment Date Treating Clinician Comments Source Diverticul itis Diverticul itis Disease Active 1-14 00:00: 00 [facility] Toxic effect of other ingested (parts of) plant(s), undetermin ed, initial encounter Toxic effect of other ingested (parts of) plant(s), undetermin ed, initial encounter Disease Active 4-30 00:00: 00 [facility] Fever Fever Disease Active 8 00:00: 00 [facility] Allergies, Adverse Reactions, Alerts Allergy Name Allergy Type Status Severity Reaction(s) Onset Date Inactive Date Treating Clinician Comments Source DEXTROME THORPHAN DRUG INGREDI Active Hives 10-17 00:00: 00 [facility] Dextrome thorphan Propensi ty to adverse reaction s Active Hives 10-17 00:00: 00 [facility] Social History Social Habit Start Date Stop Date Quantity Comments [facility] 2020-02-29 00:00:00 2020-02-29 00:00:00 0 /d [facility] History of Social function 2018-12-04 00:00:00 2018-12-04 00:00:00 [facility] Tobacco use and exposure 2018-10-06 00:00:00 2018-10-06 00:00:00 Former smokeless tobacco user [facility] Sex Assigned At 1990 00:00:00 1990 00:00:00 [facility] Smoking Status Start Date Stop Date Source Never smoked tobacco [facility] Medications Ordered Medication Name Filled Medication Name Start Date Stop Date Current Medication? Ordering Clinician Indication Dosage Frequency Signature (SIG) Comments Components Source iopamidol (ISOVUE 370-500 mL) injection 120 mL 06-10 04:45: 00 06-10 04:45 :00 No [id number] 120mL 120 mL, Intravenou s, ONCE, 1 dose, On 06/09/23 at 2245, Routine [facility] dicyclomine (BENTYL) injection 20 mg 06-10 04:00: 00 06-10 03:20 :00 No 20mg 20 mg, Intramuscu lar, ONCE, 1 dose, On 06/09/23 at 2200, Routine [facility] FENTanyl PF (SUBLIMAZE (PF)) injection 50 mcg 2024-0 1-15 04:00: 00 06-10 03:23 :00 No 50ug 50 mcg, Slow IV Push, ONCE, 1 dose, On 06/09/23 at 2200, [facility] NaCl 0.9% (NS) bolus infusion 1,000 mL 06-10 03:15: 00 06-10 05:12 :00 No 1000mL at 999 mL/hr, 1,000 mL, IV Infusion, ONCE, 1 dose, On Sat06/09/23 at 2115, [facility] amoxicillin -clavulanat e 875-125 mg per tablet 06-09 00:00: 00 Yes [id number] 1{tbl} Take 1 tablet by mouth every 12 (twelve) hours. [facility] ondansetron (ZOFRAN) 4 mg tablet 06-09 00:00: 00 Yes [id number] 4mg Take 1 tablet by mouth every 8 (eight) hours. [facility] dicyclomine 20 mg tablet 06-09 00:00: 00 Yes [id number] 20mg Take 1 tablet by mouth 4 (four) times daily. [facility] naproxen 500 mg tablet 2019-05 00:00: 00 Yes [id number] 500mg Take 1 tablet by mouth 2 (two) times daily with meals. [facility] methocarbam oL 500 mg tablet 2019-05 00:00: 00 Yes [id number] 500mg Take 1 tablet by mouth 4 (four) times daily. [facility] traMADOL (ULTRAM) 50 mg tablet 10-17 00:00: 00 Yes [id number] 822327 50mg Take 1 tablet by mouth every 8 (eight) hours as needed for Pain (scale 4-6). [facility] azithromyci n 250 mg tablet 10-06 00:00: 00 Yes [id number] 250mg Take 1 tablet by mouth SEE-INSTRU CTIONS. Take 500 mg day 1, then 250 mg days 2 to 5. [facility] albuterol 90 mcg/actuati on inhaler 10-06 00:00: 00 Yes [id number] 2{puff} Inhale 2 Puffs every 6 (six) hours as needed for Wheezing or Shortness of Breath. [facility] Vital Signs Vital Name Observation Time Observation Value Comments Zoraida fang Systolic blood pressure 2023-06-10 05:00:00 142 mm[Hg] [facility] Diastolic blood pressure 2023-06-10 05:00:00 95 mm[Hg] [facility] Heart rate 2023-06-10 05:00:00 75 /min [facility] Respiratory rate 2023-06-10 05:00:00 17 /min [facility] Oxygen saturation in Arterial blood by Pulse oximetry 2023-06-10 05:00:00 99 /min [facility] Body temperature 2023-06-10 02:02:00 36.5 Pratima [facility] Body height 2023-06-10 02:02:00 195.6 cm [facility] Body weight 2023-06-10 02:02:00 147.918 kg [facility] BMI 2023-06-10 02:02:00 38.67 kg/m2 [facility] Procedures Procedure Date / Time Performed Performing Clinician Source CT ABDOMEN PELVIS W CONTRAST 2023-06-10 03:52:06 [facility] URINALYSIS 2023-06-10 03:24:[address] [facility] URINE DRUG (IMMUNOASSAY) - COMPREHENSIVE DRUG SCREEN W/O REFLEX 2023-06-10 03:24:00 Cody Parham [facility] LIPASE 2023-06-10 02:35:00 Cody Parham [facility] COMP. METABOLIC PANEL (00837) 2023-06-10 02:35:00 Dione [facility] CBC WITH DIFF 2023-06-10 02:35:00 Cody Parham [facility] NOTICE OF PRIVACY PRACTICES 2023-06-10 01:58:51 Doctor Unassigned, [place] [facility] CONSENT/REFUSAL FOR DIAGNOSIS AND TREATMENT 2023-06-10 01:57:56 Doctor Unassigned, [place] [facility] Encounters Start Date/Time End Date/Time Encounter Type Admission Type Attending [facility] Care Department Encounter ID Source 2021-03-25 07:53:44 Emergency [facility] [id number] [facility] 2021-03-24 21:12:32 Emergency [facility] [id number] [facility] 2021-03-23 19:33:27 Emergency [facility] [id number] [facility] 2023-06-09 20:11:00 2023-06-09 23:23:00 Emergency CODY CASTANO [facility] ERT [id number] [facility] 2023-06-09 20:11:00 2023-06-09 23:23:00 Emergency Cody Parham [facility] 1.2.840.114 350.1.13.10 4.2.7.2.686 [id number] [facility] 2020-04-20 20:31:00 2020-04-20 20:46:00 Emergency oMni Summersreinaldo S [facility] 1.2.840.114 350.1.13.10 4.2.7.2.686 [id number] 2020-02-29 19:24:00 2020-02-29 22:07:00 Emergency Franklin Jimenezn Tyrese [facility] 1.2.840.114 350.1.13.10 4.2.7.2.686 [id number] 2019-09-24 15:40:58 2019-09-24 19:38:00 Emergency Oswaldo Flowers [facility] 1.2.840.114 350.1.13.10 4.2.7.2.686 [id number] 2019-09-24 00:00:00 2019-09-24 00:00:00 Telephone Dorcas Irwin [facility] 1.2.840.114 350.1.13.10 4.2.7.2.686 [id number] Results Test Description Test Time Test Comments Results Resul t Comments Source CT ABDOMEN PELVIS W CONTRAST 2023-05-27 5 04:30:32 Ordering Physician: ? ?CODY ?DIONE HISTORY: Abdominal Pain. COMPARISON: CT abdomen and pelvis 01/15/2015 TECHNIQUE: CT of the abdomen and pelvis after the administration of IVcontrast. Coronal and sagittal reformatted images were obtained. CT performed using ALARA (As Low As Reasonably Achievable). CT OF THE ABDOMEN WITH IV CONTRAST:The lung bases are clear. There is diffuse hepatic steatosis. The liver isenlarged with a craniocaudal dimension of 21.3 cm. The gallbladder isnormal. The spleen is normal. The pancreas is normal. The adrenals arenormal. The kidneys are normal. There is colonic diverticulosis with veryminimal pericolonic fat stranding involving the proximal sigmoid colon anddistal left colon. There are no pericolonic fluid collections or evidenceof perforation. The remainder of the colon is without inflammatory change.The small bowel is without inflammatory change. There is no evidence forbowel obstruction. The appendix is normal in the right lower quadrant. Theintra-abdominal vasculature is normal in caliber. There is no free air.There is no free fluid. There is no pathologic lymphadenopathy. CT OF THE PELVIS WITH IV CONTRAST:The distal ureters and bladder are normal. Soft tissues are unremarkable. No acute osseous abnormality is present. [facility] MET[facility]OLIC PANEL ([id number])2023-06-10 03:12:30* Test Item Value Reference Range Interpretation Comme nts NA (test code = 2879478156) 138 mmol/L 135-145 K (test code = 4033202634) 4.0 mmol/L 3.5-5.0 CL (test code = 8729557923) 106 mmol/L 98-108 CO2 TOTAL (test code = 3058977854) 24 mmol/L 23-31 AGAP (test code = 3146331563) 8 2-16 BUN (test code = 3448972815) 18 mg/dL 7-23 GLUCOSE (test code = 7206172914) 115 mg/dL 70-110 H CREATININE (test code = 7993273881) 1.10 mg/dL 0.60-1.25 TOTAL BILI (test code = 7754151797) 0.5 mg/dL 0.1-1.1 CALCIUM (test code = 3598046288) 8.9 mg/dL 8.6-10.6 T PROTEIN (test code = 5057938238) 7.7 g/dL 6.3-8.2 ALBUMIN (test code = 1814668634) 4.4 g/dL 3.5-5.0 ALK PHOS (test code = 1413857428) 63 U/L 34-122 ALTv (test code = 1742-6) 51 U/L 5-50 H AST(SGOT) (test code = 0825072386) 36 U/L 13-40 eGFR (test code = 75861-1) 92.0 mL/min/1.73m2 CKD-EPI eGFR (2020). Assuming creatinine has been stable day-to-day for at least three months, the eGFR indicates Category G1 (>= 90 mL/min/1.73 m2) Lab Interpretation (test code = 25031-2) [facility] 03:11:29* Test Item Value Reference Range Interpretation Comme nts LIPASE (test code = 1950957379) 100 U/L 0-220 Lab Interpretation (test cod e = 68674-2) Normal [facility] Notes Date/Time Note Provider Source 2023-06-09 23:20:45 +fkhudQfALMTAFWtlKEC ne40yEPpyar6kxg 9escoIBHxHKgoG2AZYBKIUCWqXGG78533-6 06-09T23:20:45 Pt given printed and verbal discharge instructions regarding diverticulitis, encouraged hydration.3 Prescriptions sent to pharmacy.Discussed ibuprofen and to take with food to avoid GI distress.Discussed antibiotic therapy and to take until all completed unless adverse reaction occurs - if occurs, discontinue medication and follow up with pcp/seek medical attention.Pt verbalized understanding of instructions, pt awake alert oriented, resp reg unlabored, skin w/d, color appropriate for race, moves all ext well,pt encouraged to follow up with pcp and GI.Advised to seek medical attention for new/prolonged/worsening of symptoms,Symptoms improved.No adverse reaction to meds given in ER noted upon discharge.PIV d'cd, dressing to site, catheter in tact.Awake, alert oriented, resp reg unlabored, skin w/d, pt leaving amb with steady gait, in no apparent distress. 72596-3Ogiztdefe department AjuhTI3422-50-19K62:22:01[facility] department NoteTXT1.2.840.192479.1.13.104.2.7. 2.018861|[id number] for patient rxgh66221-6OvcmCYWNPKVYMIYBaopeskky C-CDA narrative [id number] M Herrera RN[address] Zr[id number] 8UTWZAOAKLCEHFSATSQWXCD7269-36-78Q9 3:22:011.2.840.189379.1.72.3.15|1.2 .840.937631.1.13.104.2.7.2.727879_1 [id number] Isabel Riley RN [facility] 2023-06-09 19:58:53 B26p0s6OwsdLdmTQFGaU qiC/T0Uk+lH5kec cUD4ciRv/A3B8kYf/J+dAsp2t6V3G1334-0 06-09T19:58:53 Pt arrives ambulatory to ED reporting that he has rectal bleeding and 8/10 pain stabbing. Vis[facility] earlier today and they said they did not see or feel anything. He was dx with a ruptured diverticula in August of last year, he says this feels similar. 51754-3Phwzpqbka department Triage oprnBA3468-03-48D14:06:12[facility] department Triage noteTXT1.2.840.914211.1.13.104.2.7. 2.478246|[id number] for patient jxyb46916-1Fhlolvzup department NoteLNNARRATIVEFormatted C-CDA narrative [id number] L Jayson RN[address] Cz[id number] 2ZRJPCIPTPPLKSEGXFOLKPN1710-12-46X7 0:06:121.2.840.866566.1.72.3.15|1.2 .840.226835.1.13.104.2.7.2.727879_1 [id number] Mamta Patton Jayson RN [facility] 2023-06-09 19:57:00 iU2BFik8qvi4JUqM4kr2 QWBxBmIy9a7+/c4 EcKu3f43JP0okgwLxWPZ3Gb42mWOK5966-2 06-09T19:57:00 [facility] Emergency Department NotePatient Name: Kanchan Gruberte of : 1990 33 year old maleTreatment Room: NV2/[address] Record Number: [id number] Care Physician: PATIENT DOES NOT HAVE A PCPPatient Escorted by: Family [5]Mode of Arrival: Personal means [1]EMS Treatment Prior to ED Arrival:STONE ENGRAVER treatment: NoneTravel and Exposure Screening:SymptomsDoes patient have any of these symptoms?: (not recorded)Exposure ScreeningHas patient had contact with someone with a communicable disease in the last month?: (not recorded)Diseases exposed to:: (not recorded)Is Patient ?: (not recorded)Exposure Date: (not recorded)Chief Complaint:Chief ComplaintPatient presents withRectal BleedingHistory of Present Illness:33-year-old male arrived to the ED with complaints of diffuse abdominal cramping and bloody stools. Patient proceeded to show a picture of blood in a toilet bowl after he started. Patient states he was seen at [facility] earlier today and was discharged home on Cipro and Flagyl.Patient states he is continue to have cramping which prompted him to come to the ER. Patient states a CT scan was done at [facility] that did not reveal any diverticulitis.Past Medical History/Immunizations:Past Medical History:Diagnosis DateHTN (hypertension)Tetanus received in last 5 years: YesAllergies:AllergiesAllergen ReactionsDextromethorphan HivesPast Social History:Tobacco UseNeverSmokeless Tobacco: Former user of smokeless tobacco.Alcohol UseNo.Drug UseNo.Past Surgical History:No past surgical history on file.Review of Systems:Review of SystemsConstitutional: Negative for activity change, appetite change, chills, diaphoresis, fever, weight gain and weight loss.HENT: Negative.Respiratory: Negative. Negative for cough and shortness of breath.Cardiovascular: Negative for chest pain and palpitations.Gastrointestinal: Positive for abdominal pain, blood in stool and diarrhea. Negative for abdominal distention, anal bleeding, constipation, nausea, rectal pain and vomiting.Genitourinary: Negative. Negative for dysuria and difficulty urinating.Neurological: Negative. Negative for dizziness, tremors and weakness.Endocrine: Negative for weight gain and weight loss.Physical Exam:ED Triage Vitals [06/09/232001]Weight 147.9 kg (326 lb 1.6 oz)Actual or estimatedHeight 1.956 m (6' 5")BP (!) 172/100Pulse 81Resp 20Temp 36.5 ?C (97.7 ?F)Temp source OralSpO2 99 %Measured on Room airPhysical ExamHENT:Head: Normocephalic and atraumatic.Right Ear: External ear normal.Left Ear: External ear normal.Mouth/Throat:Mouth: Mucous membranes are dry.Eyes:Pupils: Pupils are equal, round, and reactive to light.Cardiovascular:Rate and Rhythm: Normal rate and regular rhythm.Pulses: Normal pulses.Heart sounds: Normal heart sounds.Pulmonary:Effort: Pulmonary effort is normal.Breath sounds: Normal breath sounds.Abdominal:Palpations: Abdomen is soft.Musculoskeletal:General: Normal range of motion.Cervical back: Normal range of motion.Skin:General: Skin is warm and dry.Capillary Refill: Capillary refill takes less than 2 seconds.Neurological:General: No focal deficit present.Mental Status: He is alert and oriented to person, place, and time. Mental status is at baseline.Psychiatric:Mood and Affect: Mood normal.Behavior: Behavior normal.Thought Content: Thought content normal.Judgment: Judgment normal.Radiology:CT ABDOMEN PELVIS W CONTRASTFinal ResultOrdering Physician: CODY GAITANRHISTORY: Abdominal Pain.COMPARISON: CT abdomen and pelvis 01/15/2015TECHNIQUE: CT of the abdomen and pelvis after the administration of IVcontrast. Coronal and sagittal reformatted images were obtained.CT performed using ALARA (As Low As Reasonably Achievable).CT OF THE ABDOMEN WITH IV CONTRAST:The lung bases are clear. There is diffuse hepatic steatosis. The liver isenlarged with a craniocaudal dimension of 21.3 cm. The gallbladder isnormal. The spleen is normal. The pancreas is normal. The adrenals arenormal. The kidneys are normal. There is colonic diverticulosis with veryminimal pericolonic fat stranding involving the proximal sigmoid colon anddistal left colon. There are no pericolonic fluid collections or evidenceof perforation. The remainder of the colon is without inflammatory change.The small bowel is without inflammatory change. There is no evidence forbowel obstruction. The appendix is normal in the right lower quadrant. Theintra-abdominal vasculature is normal in caliber. There is no free air.There is no free fluid. There is no pathologic lymphadenopathy.CT OF THE PELVIS WITH IV CONTRAST:The distal ureters and bladder are normal.Soft tissues are unremarkable. No acute osseous abnormality is present.IMPRESSION1. Colonic diverticulosis with minimal pericolonic inflammatory changeinvolving the distal left colon and proximal sigmoid colon, suggestingacute uncomplicated diverticulitis.2. Hepatic steatosis and hepatomegaly.RL: [id number]: [id number] signed by Noble Lewis MD at 06/09/2023 10:30 PMLab Results:Lab ResultsCBC WITH DIFF - AbnormalResult Value Ref RangeWBC 9.06 4.20 - 10.70 10*3/?LRBC 4.89 4.26 - 5.52 10*6/?LHGB 14.9 12.2 - 16.4 g/dLHCT 43.5 38.4 - 49.3 %MCV 89.0 81.7 - 95.6 fLMCH 30.5 26.1 - 32.7 pgMCHC 34.3 31.2 - 35.0 g/dLRDW-SD 43.1 38.5 - 51.6 fLRDW-CV 13.2 12.1 - 15.4 %PLT 248 150 - 328 10*3/?LMPV 9.9 9.8 - 13.0 fLNRBC/100 WBC 0.0 0.0 - 10.0 /100 WBCsNRBC x10^3 <0.01 10*3/?LGRAN MAT (NEUT) % 40.2 %IMM GRAN % 0.20 %LYMPH % 48.3 %MONO % 9.5 %EOS % 1.4 %BASO % 0.4 %GRAN MAT x10^3(ANC) 3.63 1.99 - 6.95 10*3/uLIMM GRAN x10^3 <0.03 0.00 - 0.06 10*3/uLLYMPH x10^3 4.38 (*) 1.09 - 3.23 10*3/uLMONO x10^3 0.86 0.36 - 1.02 10*3/uLEOS x10^3 0.13 0.06 - 0.53 10*3/uLBASO x10^3 0.04 0.01 - 0.09 10*3/uLCOMP. METABOLIC PANEL (06248) - AbnormalNA 138 135 - 145 mmol/LK 4.0 3.5 - 5.0 mmol/LCL 106 98 - 108 mmol/LCO2 TOTAL 24 23 - 31 mmol/LAGAP 8 2 - 16BUN 18 7 - 23 mg/dLGLUCOSE 115 (*) 70 - 110 mg/dLCREATININE 1.10 0.60 - 1.25 mg/dLTOTAL BILI 0.5 0.1 - 1.1 mg/dLCALCIUM 8.9 8.6 - 10.6 mg/Eric PROTEIN 7.7 6.3 - 8.2 g/dLALBUMIN 4.4 3.5 - 5.0 g/dLALK PHOS 63 34 - 122 U/LALTv 51 (*) 5 - 50 U/LAST(SGOT) 36 13 - 40 U/LeGFR 92.0 mL/min/1.04t9IOYECKCVDB - AbnormalAPPEARANCE Clear ClearCOLOR Yellow YellowPH 5.0 4.8 - 8.0SP GRAVITY 1.032 (*) 1.003 - 1.030GLU U QUAL Normal NormalBLOOD 1+ (*) NegativeKETONES Negative NegativePROTEIN Negative NegativeUROBILIN 2.0 mg/dL (*) NormalBILIRUBIN Negative NegativeNITRITE Negative NegativeLEUK EVELIO Negative NegativeRBC/HPF 1 0 - 3 HPFWBC/HPF 1 0 - 5 HPFBACTERIA Negative NegativeMUCOUS Slight (*) Negative LPFSQ EPITH <1 HPFURINE DRUG (IMMUNOASSAY) - COMPREHENSIVE DRUG SCREEN W/O REFLEX - AbnormalAMPHET Negative NegativeBARB U Negative NegativeBENZO U Negative NegativeCocaine Metabolite Negative NegativeMETHADONE Negative NegativeOPIATES Presumptive Positive (*) NegativePCP Negative NegativeTHC Negative NegativeLIPASE - NormalLIPASE 100 0 - 220 U/LEKG:If EKG completed, see Procedure Note.Orders and Treatments:Orders Placed This EncounterProceduresCT ABDOMEN PELVIS W CONTRASTCBC WITH DIFFCOMP. METABOLIC PANEL (66205)URINALYSISURINE DRUG (IMMUNOASSAY) - COMPREHENSIVE DRUG SCREEN W/O REFLEXLIPASEOrders Placed This EncounterMedicationsNaCl 0.9% (NS) bolus infusion 1,000 mLFENTanyl PF (SUBLIMAZE (PF)) injection 50 mcgdicyclomine (BENTYL) injection 20 mgiopamidol (ISOVUE 370-500 mL) injection 120 mLamoxicillin-clavulanate 875-125 mg per tabletondansetron (ZOFRAN) 4 mg tabletdicyclomine 20 mg tabletFirst Provider Eval:ED EventsDate/Time Event User Ygeqcrcp71/14/241999 Medical Screening Begins CODY PARHAM --06/09/231999 First Provider Evaluation KANDYTyrese CODY --ED COURSEDiagnosis/Impression as of 06/09/23 2242Generalized abdominal painDiverticulitisProcedures:Proced uresMDM:Medical Decision MakingAbdominal exam without peritoneal signs. No evidence of acute abdomen at this time. Well appearing. Low suspicion for acute hepatobiliary disease (includng acute cholecystitis), acute pancreatitis, PUD (including perforation), acute infectious processes (pneumonia, hepatitis, pyelonephritis), acute appendicitis, vascular catastrophe, bowel obstruction or viscus perforation. Presentation not consistent with other acute, emergent causes of abdominal pain at this time.Plan: labs, UA, CT AP, pain control, serial reassessmentPatient CT findings show diverticulitis is uncomplicated. Patient with no leukocytosis. Patient afebrile and tolerating oral intake. Patient already received 1 dose of antibiotics will discharge home on Augmentin and Bentyl. Outpatient GI follow-up recommended.Problems Addressed:Diverticulitis: acute illness or injury with systemic symptomsGeneralized abdominal pain: acute illness or injury with systemic symptomsAmount and/or Complexity of Data ReviewedLabs: ordered.Radiology: ordered.RiskPrescription drug management.Parenteral controlled substances.Flowsheet Documentation:Scoring Tools:No data recordedDisposition/Condition:ED DispositionED DispositionDisch - HomeConditionStableComment--Dischar Medications:Patient's MedicationsSTART taking these medicationsAMOXICILLIN-CLAVULANATE 875-125 MG PER TABLET Take 1 tablet by mouth every 12 (twelve) hours.DICYCLOMINE 20 MG TABLET Take 1 tablet by mouth 4 (four) times daily.ONDANSETRON (ZOFRAN) 4 MG TABLET Take 1 tablet by mouth every 8 (eight) hours.CONTINUE taking these medications which have NOT CHANGEDALBUTEROL 90 MCG/ACTUATION INHALER Inhale 2 Puffs every 6 (six) hours as needed for Wheezing or Shortness of Breath.AZITHROMYCIN 250 MG TABLET Take 1 tablet by mouth SEE-INSTRUCTIONS. Take 500 mg day 1, then 250 mg days 2 to 5.METHOCARBAMOL 500 MG TABLET Take 1 tablet by mouth 4 (four) times daily.NAPROXEN 500 MG TABLET Take 1 tablet by mouth 2 (two) times daily with meals.TRAMADOL (ULTRAM) 50 MG TABLET Take 1 tablet by mouth every 8 (eight) hours as needed for Pain (scale 4-6).START taking Modified Medications as PrescribedNo medications on fileSTOP taking these medicationsNo medications on fileFollow-up:Electronically signed by:Cody Parham DO06/09/23 2242 24191-2Xxrahhfkd Emergency department GmelTU1407-97-97Q35:42:30Physician Emergency department NoteTXT1.2.840.462994.1.13.104.2.7. 2.794969|[id number] for patient piqi66788-0Ixcdebtkp department NoteLNNARRATIVEFormatted C-CDA narrative textUTMBUT - [address] Hy[id number] 1IUFATEGPFNDNYVZTWFWZJN7888-93-70M0 2:42:301.2.840.683464.1.72.3.15|1.2 .840.375500.1.13.104.2.7.2.727879_1 [id number] [facility]
[2023-06-10] MEDS ORDERED: ONDANSETRON 4 MG/2 ML VIAL ONE (17:57)
[2023-06-10] MEDS ORDERED: CEFTRIAXONE 2000 MG/VIAL ONE (17:57)
[2023-06-10] MEDS ORDERED: MORPHINE 4 MG/ML SYR ONE (17:58)
[2023-06-10] MEDS ORDERED: NA CHLORIDE 0.9% 50 ML ONE (17:58)
[2023-06-10] MEDS ORDERED: CIPROFLOXACIN 400mg IV 400 MG/200 ML BAG IV ONE (17:58)
[2023-06-10] MEDS ORDERED: NA CHLORIDE 0.9% 1,000 ML ONE ×2 (17:58→18:18)
[2023-06-10] MEDS ORDERED: FAMOTIDINE 20 MG/2 ML VIAL IV ONE (17:58)
[2023-06-10] MEDS ORDERED: METRONIDAZOLE 500mg IVPB 500 MG/100 ML BAG IV ONE (17:59)
[2023-06-10 18:08] LABS: Absolute Lymphocytes (CBC) 3.9 K/uL (0.7-4.9); Hematocrit 46.4 % (39.6-49.0); Lymphocytes % 47.1 % (15.3-44.8); MCV 89.2 fL (80-100); Platelets 265 thou/uL (152-406)
[2023-06-10] MEDS ORDERED: HYDROMORPHONE HCL 1 MG/ML INJ ONE (18:18)
[2023-06-10 18:32] LABS: Albumin 4.2 g/dL (3.4-5.0); Bilirubin Total 0.3 mg/dL (0.2-1.0); Potassium 4.1 mEq/L (3.5-5.1); Protein, Total 8.2 g/dL (6.4-8.2)
--- NOTE | 2023-06-10 19:16 | ER ---
Nurse's Notes [facility] [place] Name: Miller Mullen Age: 33 yrs Sex: Male : 1990 Arrival Date: 06/10/2023 Time: 17:15 Bed 17 Private MD: Diagnosis: Diverticulitis of intestine, part unspecified, without perforation or abscess with bleeding Presentation: 06/10 17:41 Chief complaint: Patient states: Bilateral lower abdominal pain since yesterday, was ph seen in emergency department w/ no abnormal findings, states that he then went to [place] were CT showed possible colitis. Pt also reports bright red blood in stool and nausea, denies fever or vomiting. Coronavirus screen: Vaccine status: Patient reports receiving the 2nd dose of the covid vaccine. Ebola Screen: No symptoms or risks identified at this time. Initial Sepsis Screen: Does the patient meet any 2 criteria? No. Patient's initial sepsis screen is negative. Does the patient have a suspected source of infection? No. Patient's initial sepsis screen is negative. Risk Assessment: Do you want to hurt yourself or someone else? Patient reports no desire to harm self or others. Onset of symptoms was June 10, 2023. 17:41 Method Of Arrival: Ambulatory ph 17:41 Acuity: MT 3 ph Triage Assessment: 18:52 General: Appears in no apparent distress. comfortable, Behavior is calm, cooperative. cm10 Pain: Complains of pain in right lower quadrant. EENT: No deficits noted. No signs and/or symptoms were reported regarding the EENT system. 18:53 Neuro: No deficits noted. Tucker Agitation-Sedation Scale (RASS): 0 - Alert and Calm cm10 Level of Consciousness is awake, alert, obeys commands, Oriented to person, place, time, situation. Cardiovascular: No deficits noted. Patient's skin is warm and dry. Respiratory: No deficits noted. Airway is patent Respiratory effort is even, unlabored, Respiratory pattern is regular, symmetrical. GI: No deficits noted. Abdomen is flat, Reports lower abdominal pain, bloody stool. : No deficits noted. No signs and/or symptoms were reported regarding the genitourinary system. Derm: No deficits noted. No signs and/or symptoms reported regarding the dermatologic system. Skin is intact, Skin is pink, warm \T\ dry. Musculoskeletal: No deficits noted. No signs and/or symptoms reported regarding the musculoskeletal system. Range of motion: intact in all extremities. Historical: - Allergies: 17:44 Codeine; ph - PMHx: 17:44 Hypertension; ph - Immunization history:: Adult Immunizations unknown. - Social history:: Smoking status: Patient denies any tobacco usage or history of. Screenin:54 [facility] ED Fall Risk Assessment (Adult) History of falling in the last 3 months, cm10 including since admission No falls in past 3 months (0 pts) Confusion or Disorientation No (0 pts) Intoxicated or Sedated No (0 pts) Impaired Gait No (0 pts) Mobility Assist Device Used No (0 pt) Altered Elimination No (0 pt) Score/Fall Risk Level 0 - 2 = Low Risk Oriented to surroundings, Maintained a safe environment, Hourly rounding (assess needs \T\ fall precautionary measures) done. Abuse screen: Denies threats or abuse. Denies injuries from another. Nutritional screening: No deficits noted. Tuberculosis screening: No symptoms or risk factors identified. Assessment: 19:17 General: Appears uncomfortable, Behavior is calm, cooperative. Pain: Complains of pain ha1 in left lower quadrant Pain does not radiate. Pain currently is 4 out of 10 on a pain scale. Quality of pain is described as crampy. Neuro: Level of Consciousness is awake, alert, obeys commands, Oriented to person, place, time, situation. Cardiovascular: Capillary refill < 3 seconds Patient's skin is warm and dry. Respiratory: Airway is patent Respiratory effort is even, unlabored, Respiratory pattern is regular, symmetrical. Derm: Skin is pink, warm \T\ dry. 20:15 Reassessment: Patient and/or family updated on plan of care and expected duration. Pain ha1 level reassessed. Patient is alert, oriented x 3, equal unlabored respirations, skin warm/dry/pink. 20:42 Reassessment: report given to SIENA Villeda. ha1 Vital Signs: 17:41 BP 154 / 97; Pulse 65; Resp 18; Temp 7.6; Pulse Ox 98% on R/A; Weight 102.51 kg; Height ph 6 ft. 5 in. ; 17:44 Temp 97.8; ph 19:18 BP 133 / 66; Pulse 64; Resp 17 S; Pulse Ox 98% on R/A; ha1 20:00 BP 142 / 78; Pulse 80; Resp 17 S; Temp 98.1; Pulse Ox 98% ; ha1 17:41 Body Mass Index 26.80 (102.51 kg, 195.58 cm) ph ED Course: 17:17 Patient arrived in ED. mg5 17:17 Anderson Skinner PA is PHCP. cp 17:17 Fahad Hernandez MD is Attending Physician. cp 17:20 Anderson Nunez MD is Attending Physician. cp 17:21 Anderson Skinner PA is PHCP. cp 17:44 Triage completed. ph 17:44 Arm band placed on Patient placed in an exam room, on a stretcher. ph 18:10 Initial lab(s) drawn, by me, sent to lab. Inserted saline lock: 20 gauge in right hand, cm10 using aseptic technique. Blood collected. 18:54 Patient has correct armband on for positive identification. Placed in gown. Bed in low cm10 position. Call light in reach. Side rails up X2. Provided Education on: ER process and procedures. . Pulse ox on. NIBP on. 19:00 Report received from SIENA GRAHAM. ha1 19:15 Jagdish Wheeler MD is Hospitalizing Provider. 21:32 Elyssa Beyer RN is Primary Nurse. ha1 21:32 No provider procedures requiring assistance completed. Patient admitted, IV remains in ha1 place. Administered Medications: 18:11 Drug: NS 0.9% IV 1000 ml IV at 1 bolus Per protocol; 1000 mL bolus Route: IV; Rate: 1 cm10 bolus; Site: right hand; 18:11 Drug: Famotidine IVP 20 mg IVP once; dilute with 10 mL 0.9% NaCl; give over 2 minutes cm10 Route: IVP; Site: right hand; 18:11 Drug: Ondansetron IVP 4 mg IVP once; over 2 minutes Route: IVP; Site: right hand; cm10 18:11 Drug: morphine IVP or IV 4 mg IVP once over 4 mins Route: IVP; Infused Over: 4 mins; cm10 Site: right hand; 18:11 Drug: Rocephin IV 2 grams IV at per protocol once; Given slow IV push per pharmarcy cm10 instructions Route: IV; Rate: per protocol; Site: right hand; 18:22 Drug: HYDROmorphone IVP 1 mg IVP once Route: IVP; Site: right hand; 19:00 Follow up: Response: No adverse reaction; Marked relief of symptoms ha1 18:29 Drug: metroNIDAZOLE IVPB 500 mg 100 ml IVPB at 200 ml/hr once over 30 mins Volume: 100 cm10 ml; Route: IVPB; Rate: 200 ml/hr; Infused Over: 30 mins; Site: right hand; 18:29 Drug: NS 0.9% IV 1000 ml IV at 1 bolus Per protocol; 1000 mL bolus Route: IV; Rate: 1 cm10 bolus; Site: right hand; 20:30 Follow up: Response: No adverse reaction; IV Status: Completed infusion; IV Intake: ha1 1000ml 19:00 Drug: Ciprofloxacin IVPB 400 mg 200 ml IVPB once over 60 mins Volume: 200 ml; Route: ha1 IVPB; Infused Over: 60 mins; Site: right antecubital; 20:00 Follow up: Response: No adverse reaction; IV Status: Completed infusion ha1 20:02 Drug: HYDROmorphone IVP 1 mg IVP once Route: IVP; Site: right antecubital; ha1 20:30 Follow up: Response: No adverse reaction; Pain is decreased; RASS: Alert and Calm (0) ha1 Medication: 18:54 VIS not applicable for this client. cm10 Intake: 20:30 IV: 1000ml; Total: 1000ml. ha1 Outcome: 19:16 Decision to Hospitalize by Provider. cp 21:32 Admitted to Med/surg accompanied by tech, via wheelchair, room 212, with chart, Report ha1 called to SIENA Villeda 21:32 Condition: stable 21:32 Discharge instructions given to patient, Instructed on the need for admit, Demonstrated understanding of instructions, 21:34 Patient left the ED. ha1 Signatures: Lo Minaya RN RN Anderson Richter PA PA cp Elyssa Beyer RN RN ha1 Lynette Shelton RN RN cm10 Rosetta Irwin mg5
--- NOTE | 2023-06-10 19:16 | EDPHYS ---
Physician Documentation [facility] Name: Miller Mullen Age: 33 yrs Sex: Male : 1990 Arrival Date: 06/10/2023 Time: 17:15 Bed 17 Private MD: ED Physician Anderson Nunez HPI: 06/10 17:30 This 33 yrs old Male presents to ER via Ambulatory with complaints of Abdominal Pain. cp 17:30 The patient presents with abdominal pain in the lower abdomen. cp 17:30 Patient returns to ED with continued lower abdomen pain since yesterday and rectal cp bleeding. Patient reports he went to [facility] and was diagnosed with diverticulitis after being seen here yesterday. Dr Shelton spoke with Dr Nunez and requests patient be admitted and he will consult. Historical: - Allergies: 17:44 Codeine; ph - PMHx: 17:44 Hypertension; ph - Immunization history:: Adult Immunizations unknown. - Social history:: Smoking status: Patient denies any tobacco usage or history of. ROS: 17:35 Constitutional: Negative for body aches, chills, fever, poor PO intake, cp 17:35 Eyes: Negative for injury, pain, redness, and discharge, cp 17:35 ENT: Negative for drainage from ear(s), ear pain, sore throat, difficulty swallowing, difficulty handling secretions, 17:35 Cardiovascular: Negative for chest pain, palpitations, 17:35 Respiratory: Negative for cough, shortness of breath, wheezing, 17:35 Abdomen/GI: Positive for abdominal pain, nausea, rectal bleeding, Negative for vomiting, constipation, 17:35 Neuro: Negative for altered mental status, headache, syncope, weakness, 17:35 All other systems are negative, Exam: 17:40 Constitutional: The patient appears in no acute distress, alert, awake, cp non-diaphoretic, non-toxic, well developed, well nourished, uncomfortable, 17:40 Head/Face: Normocephalic, atraumatic. cp 17:40 Eyes: Periorbital structures: appear normal, Conjunctiva: normal, no exudate, no injection, Sclera: no appreciated abnormality, Lids and lashes: appear normal, bilaterally, 17:40 ENT: External ear(s): are unremarkable, Nose: is normal, Mouth: Lips: moist, Oral mucosa: pink and intact, moist, Posterior pharynx: Airway: no evidence of obstruction, patent, 17:40 Chest/axilla: Inspection: normal, 17:40 Cardiovascular: Rate: normal, Rhythm: regular, 17:40 Respiratory: the patient does not display signs of respiratory distress, Respirations: normal, no use of accessory muscles, no retractions, labored breathing, is not present, Breath sounds: are clear throughout, no decreased breath sounds, no stridor, no wheezing, 17:40 Abdomen/GI: Inspection: abdomen appears normal, Bowel sounds: active, all quadrants, Palpation: soft, in all quadrants, moderate abdominal tenderness, in the right lower quadrant and left lower quadrant, rebound tenderness, is not appreciated, involuntary guarding, is not appreciated, 17:40 Back: pain, is absent, ROM is normal, Vital Signs: 17:41 BP 154 / 97; Pulse 65; Resp 18; Temp 7.6; Pulse Ox 98% on R/A; Weight 102.51 kg; Height ph 6 ft. 5 in. ; 17:44 Temp 97.8; ph 19:18 BP 133 / 66; Pulse 64; Resp 17 S; Pulse Ox 98% on R/A; ha1 20:00 BP 142 / 78; Pulse 80; Resp 17 S; Temp 98.1; Pulse Ox 98% ; ha1 17:41 Body Mass Index 26.80 (102.51 kg, 195.58 cm) ph MDM: 17:33 Patient medically screened. 19:15 Data reviewed: vital signs, nurses notes, lab test result(s), and as a result, I will cp admit patient. 19:15 Differential diagnosis: gastritis, non-specific abd pain, pancreatitis, Peptic Ulcer cp Disease, Perf. Duodenal Ulcer, Perf. Gastric Ulcer, colitis, diverticulitis. Management of patient was discussed with the following: Hospitalist: DR Wheeler will admit after discussion and consult DR Shelton. I considered the following discharge prescriptions or medication management in the emergency department Medications were administered in the Emergency Department. See MAR. Care significantly affected by the following chronic conditions: Hypertension. Counseling: I had a detailed discussion with the patient and/or guardian regarding the historical points, exam findings, and any diagnostic results supporting the discharge/admit diagnosis, lab results, radiology results. 06/10 17:24 Order name: CBC with Diff; Complete Time: 18:44 [facility] 06/10 18:44 Interpretation: Normal except: LYM% 47.1. 06/10 17:24 Order name: CMP; Complete Time: 18:44 [facility] 06/10 18:44 Interpretation: Normal except: GFR 85. 06/10 17:24 Order name: Lipase; Complete Time: 18:44 [facility] 06/10 17:24 Order name: Urinalysis w/ reflexes [facility] 06/10 17:46 Order name: Ova And Parasites 06/10 17:46 Order name: Rotavirus Antigen 06/10 17:46 Order name: Stool Culture 06/10 17:46 Order name: CDIFF 06/10 17:46 Order name: Lactate w/ 2H reflex if indic.; Complete Time: 19:11 06/10 19:14 Interpretation: Reviewed. 06/10 17:46 Order name: Blood Culture Adult (2) 06/10 17:24 Order name: IV Saline Lock; Complete Time: 18:12 [facility] 06/10 17:24 Order name: Labs collected and sent; Complete Time: 18:12 [facility] Administered Medications: 18:11 Drug: NS 0.9% IV 1000 ml IV at 1 bolus Per protocol; 1000 mL bolus Route: IV; Rate: 1 cm10 bolus; Site: right hand; 18:11 Drug: Famotidine IVP 20 mg IVP once; dilute with 10 mL 0.9% NaCl; give over 2 minutes cm10 Route: IVP; Site: right hand; 18:11 Drug: Ondansetron IVP 4 mg IVP once; over 2 minutes Route: IVP; Site: right hand; cm10 18:11 Drug: morphine IVP or IV 4 mg IVP once over 4 mins Route: IVP; Infused Over: 4 mins; cm10 Site: right hand; 18:11 Drug: Rocephin IV 2 grams IV at per protocol once; Given slow IV push per pharmarcy cm10 instructions Route: IV; Rate: per protocol; Site: right hand; 18:22 Drug: HYDROmorphone IVP 1 mg IVP once Route: IVP; Site: right hand; ph 19:00 Follow up: Response: No adverse reaction; Marked relief of symptoms ha1 18:29 Drug: metroNIDAZOLE IVPB 500 mg 100 ml IVPB at 200 ml/hr once over 30 mins Volume: 100 cm10 ml; Route: IVPB; Rate: 200 ml/hr; Infused Over: 30 mins; Site: right hand; 18:29 Drug: NS 0.9% IV 1000 ml IV at 1 bolus Per protocol; 1000 mL bolus Route: IV; Rate: 1 cm10 bolus; Site: right hand; 20:30 Follow up: Response: No adverse reaction; IV Status: Completed infusion; IV Intake: ha1 1000ml 19:00 Drug: Ciprofloxacin IVPB 400 mg 200 ml IVPB once over 60 mins Volume: 200 ml; Route: ha1 IVPB; Infused Over: 60 mins; Site: right antecubital; 20:00 Follow up: Response: No adverse reaction; IV Status: Completed infusion ha1 20:02 Drug: HYDROmorphone IVP 1 mg IVP once Route: IVP; Site: right antecubital; ha1 20:30 Follow up: Response: No adverse reaction; Pain is decreased; RASS: Alert and Calm (0) ha1 Disposition Summary: 06/10/23 19:16 Hospitalization Ordered Notes: Hospitalization Status: Inpatient Admission cp Provider: Jagdish Wheeler cp Location: Telemetry/MedSurg (Inpatient) cp Condition: Stable cp Problem: new cp Symptoms: have improved cp Bed/Room Type: Standard cp Room Assignment: [facility](06/10/23 20:27) as6 Diagnosis - Diverticulitis of intestine, part unspecified, without perforation or abscess with cp bleeding Forms: - Medication Reconciliation Form cp - SBAR form cp - Leadership Thank You Letter cp Signatures: Dispatcher [employer] Anderson Hudson MD MD cha Hall, Patricia, RN RN Anderson Richter, Jose Alfredo Perez cp, RN RN as6 Elyssa Beyer RN RN ha1 Chichi Alvarez PA-C PAEmmy rai4 Lynette Shelton RN RN cm10 Corrections: (The following items were deleted from the chart) 20:27 19:16 cp as6
[2023-06-10 19:43] LABS: Specific Gravity 1.015 (1.005-1.030); Urine Bilirubin NEGATIVE (Negative); Urine Blood Negative (Negative); Urine Clarity Clear (Clear); Urine Color Colorless (Yellow); Urine Glucose NEGATIVE (Negative); Urine Protein NEGATIVE (Negative); Urine Urobilinogen Normal (Normal); Urine pH 6.5 (5.0-7.0)
[2023-06-10] MEDS ORDERED: ACETAMINOPHEN 325 MG TABLET PO PRN (20:14)
--- NOTE | 2023-06-10 20:17 | P.HP ---
Certification for Inpatient Patient admitted to: Inpatient With expected LOS: >2 Midnights Patient will require the following post-hospital care: None Practitioner: I am a practitioner with admitting privileges, knowledge of patient current condition, hospital course, and medical plan of care. Services: Services provided to patient in accordance with Admission requirements found in Title 42 Section 412.3 of the Code of Federal Regulations Patient History Date of Service: 06/11/23 Reason for admission: Abdominal pain, diarrhea. History of Present Illness: 33-year-old male patient who has a medical history significant for prior episode of diverticulitis that had a microperforation who came to the ED with complaint of abdominal pain. He had recent diarrhea, abdominal pain and was concerned about recurrence of his diverticulitis episode. Initial imaging was overtly concerning however repeat imaging failed to reveal diverticulitis. Patient cont inues to have abdominal pain and rectal bleeding so he decided to come back to the ED and ED was deemed to be in need of medical therapy with IV antibiotics. He had discussed with surgeon Dr. Shelton for his abdominal pain issues. Patient reported that his abdominal pain is similar to the time he had a perforation secondary to worsening diverticulitis prior to this encounter. He denied overt episode of fever, chills. Empiric antibiotic therapy of Flagyl and ciprofloxacin was started for his present health issues. Allergies codeine Allergy (Verified 06/10/23 21:35) abdominal pain Home Medications: NK [No Home Meds] 06/11/23 - Past Medical/Surgical History -: Hypertension -: None Psychosocial/ Personal History: Patient lives at home with family - Social History Alcohol use: No CD- Drugs: No Caffeine use: Yes Review of Systems General: Malaise Eyes: Unremarkable ENT: Unremarkable Respiratory: Unremarkable Cardiovascular: Unremarkable Gastrointestinal: Abdominal Pain, Diarrhea Genitourinary: Unremarkable Musculoskeletal: Unremarkable Integumentary: Unremarkable Neurological: Unremarkable Lymphatics: Unremarkable Physical Examination - Physical Exam General: Alert, Oriented x3 HEENT: Atraumatic Neck: Supple Respiratory: Normal air movement Cardiovascular: Regular rate/rhythm, Normal S1 S2 Gastrointestinal: Tenderness Musculoskeletal: No swelling Neurological: Normal speech, Normal strength at 5/5 x4 extr - Studies Laboratory Data (last 24 hrs) 06/10/23 06/10/23 17:51 17:51 WBC 8.20 Hgb 15.8 Hct 46.4 Plt Count 265 Sodium 137 Potassium 4.1 BUN 16 Creatinine 1.17 Glucose 95 Total Bilirubin 0.3 AST 26 ALT 65 H Alkaline Phosphatase 76 Lipase 43 Assessment and Plan - Plan Diverticulitis: Patient did have abdominal pain and diarrhea with bloody component. He is deemed to have acute diverticulitis with no evidence of perforation as per imaging. Will continue empiric antibiotic therapy with ciprofloxacin and Flagyl. Continue pain control with as needed Dilaudid and as needed Tylenol. Continue IV fluid for hydration purposes. Follow clinical symptomatology closely. Surgeon consulted for management recommendation Prophylaxis: SCDs for DVT prophylaxis secondary to rectal bleeding issue. CODE STATUS: Full code. Disposition: We will treat his acute diverticulitis episode and he will be discharged home once he is deemed clinically stable for oral antibiotic therapy. - Advance Directives Does patient have a Living Will: No Does patient have a Durable POA for Healthcare: No
[2023-06-10 21:36] VITALS: BMI 38.5
[2023-06-10] MEDS: NA CHLORIDE 0.9% 1,000 ML IV SCH (21:47)
[2023-06-10] MEDS: HYDROMORPHONE HCL 0.5 MG/0.5 ML INJ IV PRN (22:13)
[2023-06-11] MEDS: METRONIDAZOLE 500mg IVPB 500 MG/100 ML BAG IV SCH ×3 (00:34→16:33)
[2023-06-11] MEDS: ONDANSETRON 4 MG/2 ML VIAL IV PRN ×3 (00:35→14:29)
[2023-06-11] MEDS: HYDROMORPHONE HCL 0.5 MG/0.5 ML INJ IV PRN ×8 (02:04→23:39)
[2023-06-11] MEDS: NA CHLORIDE 0.9% 1,000 ML IV SCH ×2 (08:31→16:33)
[2023-06-11] MEDS: CIPROFLOXACIN 400mg IV 400 MG/200 ML BAG IV SCH ×2 (08:31→19:58)
--- NOTE | 2023-06-11 12:57 | CON ---
Date of Consultation: 06/11/2023 Reason For Service: Diverticulitis. Indication: This is a case of a 33-year-old known by us because several months ago he came with dive rticulitis and microperforation. He was sent to the colorectal surgeon. He has not been able to go there yet for insurance reasons. He was sent to see a colorectal group with Dr. Vargas. On the last 2 days the pain came back once again. He came to the ER, but when he was seen in the ER, CAT scan was negative, only shows some hernia and he was sent home, but since the pain got worse, he decided to g o to [facility], that was in the last 48 hours. [facility] saw him in ER a few hours later, did repeat the CAT s can once again and that area showed diverticulitis in the sigmoid and descending colon. He was not k ept in the hospital. He was then overnight at home and yesterday he got worse, seen in my office, an d I will send him back to the ER since he has exacerbation of symptoms plus the CAT scan shows it is diverticulitis, plus before a few months ago he had ruptured diverticulitis, it just self-contained. Past Medical History: Diverticulitis. Allergies: NONE. Social History: He does not smoke. He does not drink alcohol. Family History: Noncontributory. Last colonoscopy, no tumor seen, just diverticulum. Review of Systems: See above. 10 points otherwise unremarkable. The patient stated nausea, vomiting, abdominal pain, d iarrhea with what he noticed at one point there was some drop of blood in the stools. Without consti pation. We have not been able to reproduce that again. Physical Examination: General: The patient is awake, alert. HEENT: Pupils are equal and reactive. Anicteric. Neck: Supple. Chest: Clear. Heart: S1, S2. Abdomen: Left lower quadrant and pelvic tenderness and guarding. No rebound. Extremities: Good capillary refill. Rectal: Deferred. Data: Blood work reviewed with the patient with a white count of 8.2, hemoglobin of 15.8, and platel ets 265. Potassium 4.1, creatinine is 1.17. CAT scan of the abdomen and pelvis, the one done in [facility] was negative. The one done 2 hours later at [facility] shows sigmoid diverticulitis, descend ing colon, sigmoid area, which is where he is having the pain. He has a copy of that with him. Assessment: The patient with abdominal pain, intractable, not improving, nausea, bloating, and CAT s can showing diverticulitis, so he is going to be readmitted to the hospital. Bowel rest, IV antibiot ics, serial abdominal examination. Will also recommend this patient eventually to see the colorectal surgeon. For the GI bleed, he may have to check with a adding machine servicer since he only had a lower colonoscopy done, no upper endoscopy. TIAN/HILARY Voice ID: [id number] Report ID: [id number]
[2023-06-11 20:06] VITALS: O2SAT 100
[2023-06-12] MEDS: METRONIDAZOLE 500mg IVPB 500 MG/100 ML BAG IV SCH ×3 (00:28→17:00)
[2023-06-12] MEDS: NA CHLORIDE 0.9% 1,000 ML IV SCH ×4 (02:33→20:15)
[2023-06-12] MEDS: HYDROMORPHONE HCL 0.5 MG/0.5 ML INJ IV PRN ×7 (02:58→20:57)
[2023-06-12] MEDS: CIPROFLOXACIN 400mg IV 400 MG/200 ML BAG IV SCH ×2 (09:08→20:15)
[2023-06-12] MEDS: ONDANSETRON 4 MG/2 ML VIAL IV PRN ×2 (09:08→20:57)
--- NOTE | 2023-06-12 13:54 | PN ---
Date of Progress Note: 06/12/2023 Diagnosis: Diverticulitis. Subjective: This is a case of a 33-year-old, known by us since about 2 months ago. The patient has history of diverticulitis with microperforation. He has not been able to take care of the problem en tirely since he has not been able to see his colorectal surgeon. He comes back once again with kojour edisongenia. He was admitted, started on IV antibiotics. Patient today feels a little bit better. No fev er. Objective: Vital Signs: Stable. Chest: Clear. Abdomen: Soft and depressible. Left lower quadrant is improving with no rebound tenderness. Extremities: Good capillary refill. Laboratory Data: Blood work reviewed with the patient. Plan: He is tolerating full liquid diet today. Continue serial abdominal examination. Once again, we will like him to establish a connection back again with Dr. Vargas, his Colorectal in [place]. TIAN/HILARY Voice ID: [id number] Report ID: [id number]
[2023-06-13] MEDS: METRONIDAZOLE 500mg IVPB 500 MG/100 ML BAG IV SCH ×3 (00:10→16:10)
[2023-06-13] MEDS: HYDROMORPHONE HCL 0.5 MG/0.5 ML INJ IV PRN ×7 (00:11→21:19)
[2023-06-13] MEDS: ONDANSETRON 4 MG/2 ML VIAL IV PRN ×2 (03:23→09:55)
--- NOTE | 2023-06-13 06:34 | P.PN ---
Date of Service: 06/11/23 Subjective Patient is clinically still having some pain. Spoke to general surgeon and he knows the patient from his office. He says that patient's pain is concerning for him. Concerning for perforated diverticulum. Will monitor labs and repeat CT imaging. Continue on a clear liquid diet. Physical Examination - Vitals Reviewed - Physical Exam General: Alert, Oriented x3 Respiratory: Normal air movement Cardiovascular: Regular rate/rhythm, Normal S1 S2 Gastrointestinal: Tenderness-mildly Musculoskeletal: No swelling Neurological: Normal speech, Normal strength at 5/5 x4 extr; No focal deficits Assessment and Plan - Plan Diverticulitis: Patient did have abdominal pain and diarrhea with bloody component. He is deemed to have acute diverticulitis with no evidence of perforation as per imaging. Will continue empiric antibiotic therapy with ciprofloxacin and Flagyl. Continue pain control with as needed Dilaudid and as needed Tylenol. Continue IV fluid for hydration purposes. Follow clinical symptomatology closely. Surgeon consulted for management recommendation Prophylaxis: SCDs for DVT prophylaxis secondary to rectal bleeding issue. CODE STATUS: Full code. Disposition: We will treat his acute diverticulitis episode and he will be discharged home once he is deemed clinically stable for oral antibiotic therapy. - Advance Directives Does patient have a Living Will: No Does patient have a Durable POA for Healthcare: No
--- NOTE | 2023-06-13 06:35 | P.PN ---
Date of Service: 06/12/23 Subjective Patient is doing somewhat better. Plan to do CT imaging in AM. If this is stable then advance diet and possible discharge home. Physical Examination - Vitals Reviewed - Physical Exam General: Alert, Oriented x3 Respiratory: Normal air movement Cardiovascular: Regular rate/rhythm, Normal S1 S2 Gastrointestinal: Tenderness-mildly Musculoskeletal: No swelling Neurological: Normal speech, Normal strength at 5/5 x4 extr; No focal deficits Assessment and Plan - Plan Diverticulitis: Patient did have abdominal pain and diarrhea with bloody component. He is deemed to have acute diverticulitis with no evidence of perforation as per imaging. Will continue empiric antibiotic therapy with ciprofloxacin and Flagyl. Continue pain control with as needed Dilaudid and as needed Tylenol. Continue IV fluid for hydration purposes. Follow clinical symptomatology closely. Surgeon consulted for management recommendation, Dr. Shelton knows the patient really well. And will follow his recommendations. Prophylaxis: SCDs for DVT prophylaxis secondary to rectal bleeding issue. CODE STATUS: Full code. Disposition: We will treat his acute diverticulitis episode and he will be discharged home once he is deemed clinically stable for oral antibiotic therapy. - Advance Directives Does patient have a Living Will: No Does patient have a Durable POA for Healthcare: No
[2023-06-13 08:10] LABS: Absolute Lymphocytes (CBC) 3.4 K/uL (0.7-4.9); Hematocrit 47.4 % (39.6-49.0); Lymphocytes % 48.7 % (15.3-44.8); MCV 90.2 fL (80-100); MPV 7.4 fL (7.6-11.3); Platelets 266 thou/uL (152-406); RBC Red Blood Cell Count 5.26 M/uL (4.33-5.43)
[2023-06-13 08:22] LABS: Albumin 3.8 g/dL (3.4-5.0); Bilirubin Total 0.5 mg/dL (0.2-1.0); Magnesium 2.2 mg/dL (1.6-2.4); Potassium 4.4 mEq/L (3.5-5.1); Protein, Total 7.3 g/dL (6.4-8.2)
--- NOTE | 2023-06-13 08:30 | P.PN ---
Subjective Date of Service: 06/13/23 Chief Complaint: Abdominal pain, diarrhea. Subjective: No new changes, Improving, Doing well Patient is alert and oriented x 3 Reports abdominal pain 5 out of 10, on analgesics as needed Vital signs stable Receiving IV fluids <Annie Jha - Last Filed: 06/13/23 08:37> Date of Service: 06/14/23 <Nathan Suarez - Last Filed: 06/14/23 14:37> Review of Systems 10-point ROS is otherwise unremarkable <nAnie Jha - Last Filed: 06/13/23 08:37> Physical Examination - Vital Signs Temperature: 97.0 F Blood Pressure: 114/71 Pulse: 62 Respirations: 12 Pulse Ox (%): 97 - Physical Exam General: Alert, In no apparent distress, Oriented x3 HEENT: Atraumatic, Normocephalic Neck: Supple, 2+ carotid pulse no bruit Respiratory: Clear to auscultation bilaterally, Normal air movement Cardiovascular: No edema, Normal pulses Capillary refill: <2 Seconds Gastrointestinal: Normal bowel sounds, Soft and benign Musculoskeletal: No clubbing, No swelling Integumentary: No rashes, No significant lesion Neurological: Normal speech, Normal tone, Normal affect <Annie Jha - Last Filed: 06/13/23 08:37> Assessment And Plan - Current Problems (Diagnosis) (1) Diverticulitis Status: Acute - Plan Diverticulitis: Patient is still c/o Abdomnial Pain diffuse, moderate pain on analgesics as needed. Patient did have abdominal pain and diarrhea with bloody component. He is deemed to have acute diverticulitis with no evidence of perforation as per imaging. Will continue empiric antibiotic therapy with ciprofloxacin and Flagyl. Continue pain control with as needed Dilaudid and as needed Tylenol. Continue IV fluid for hydration purposes. Follow clinical symptomatology closely. Surgeon consulted for management recommendation, Dr. Shelton knows the patient really well. And will follow his recommendations. Prophylaxis: SCDs for DVT prophylaxis secondary to rectal bleeding issue. Discharge Plan: Home Plan to discharge in: 24 Hours - Code Status/Comfort Care Code Status Assessed: Yes (full code) Code Status: Full Code Physician Review: Patient Assessed, Agree with Above Assessment and Plan Critical Care: No Time Spent Managing PTS Care (In Minutes): 35 (minutes) <Annie Jha - Last Filed: 06/13/23 08:37> - Plan Pt seen and examined. I agree with the note by the FLOATING DERRICK OPERATOR. Will continue cipro and flagyl. <Nathan Suarez - Last Filed: 06/14/23 14:37>
[2023-06-13] MEDS: CIPROFLOXACIN 400mg IV 400 MG/200 ML BAG IV SCH ×2 (09:03→21:18)
[2023-06-13] MEDS: NA CHLORIDE 0.9% 1,000 ML IV SCH ×2 (09:04→21:18)
--- NOTE | 2023-06-13 10:51 | RAD REPORT ---
EXAM DESCRIPTION: CT - Abdomen Pelvis W Contrast - 06/13/2023 9:49 am CLINICAL HISTORY: diverticulitis COMPARISON: Abdomen Pelvis W Contrast dated 06/09/2023; CT ABD PELVIS W CONTRAST dated 09/30/2013 TECHNIQUE: Thin cut axial CT imaging of the abdomen and pelvis was performed following intravenous a dministration of 100 mL Isovue 300. Multiplanar reformats were generated and reviewed. All CT scans are performed using dose optimization technique as appropriate and may include automated exposure control or mA/KV adjustment according to patient size. FINDINGS: No suspicious findings in the lung bases. The liver shows diffuse hepatic parenchymal hypoattenuation suggesting steatosis. Adrenal glands, spl een, and pancreas show no suspicious findings. Gallbladder and biliary tree are also without suspicio us finding. Symmetric renal function is seen with no hydronephrosis or suspicious renal mass. No dilated bowel loops or bowel wall thickening. Colonic diverticulosis. No free air, free fluid or i nflammatory stranding. No hernia, mass or bulky lymphadenopathy. The urinary bladder is without signi ficant finding. No suspicious bony findings. IMPRESSION: No acute intra-abdominal process. Diffuse hepatic steatosis. Colonic diverticulosis.
--- NOTE | 2023-06-13 12:18 | PN ---
Date of Progress Note: 06/13/2023 Diagnoses: Diverticulitis, nausea, vomiting. Subjective: Patient feels the same. This morning, vomited. Yesterday, vomited. Still with abdomin al pain. He has history of diverticulitis and perforation few months ago. He has not been seen by h is Colorectal surgeon yet. He came with another attack. We have a CT scan in this institution. It was negative. A few hours later, he went to [facility]. Had a CAT scan which shows diverticulitis again. All over, he preferred to be admitted to this institution, so patient was admitted. By now, we expe ct some improvement. We have not seen much of a change. Imaging was ordered. Objective: Chest: Clear. Abdomen: Soft and depressible. No guarding, no rebound, but still some mild generalized tenderness. Extremities: Good capillary refill. Laboratory Data: Blood work reviewed. Plan: I believe, at this moment, if we see no improvement in the way it is supposed to be, I believe , a GI consult, if available, may just put some light into this, make sure we are not dealing with mo re than just a diverticulitis. We gave the person the connections with the Colorectal surgeon as an outpatient once the inflammation goes down, to establish that connection to diminish the chance of re currence. The patient apparently is going for imaging today and let us see what that shows. TIAN/HILARY Voice ID: [id number] Report ID: [id number]
[2023-06-14] MEDS: HYDROMORPHONE HCL 0.5 MG/0.5 ML INJ IV PRN ×3 (00:14→06:43)
[2023-06-14] MEDS: METRONIDAZOLE 500mg IVPB 500 MG/100 ML BAG IV SCH ×2 (00:14→08:24)
[2023-06-14] MEDS: ONDANSETRON 4 MG/2 ML VIAL IV PRN (00:14)
[2023-06-14] MEDS: CIPROFLOXACIN 400mg IV 400 MG/200 ML BAG IV SCH (08:24)
[2023-06-14 08:40] VITALS: BP 138/88; TEMP 97
--- NOTE | 2023-06-14 10:01 | P.DS ---
Admission Date: 06/10/23 Discharge Date: 06/14/23 Reason for Admission: Abdominal pain, diarrhea. - Problems (1) Diverticulitis Status: Acute Brief History of Present Illness: Reason for admission: Abdominal pain, diarrhea. History of Present Illness: 33-year-old male patient who has a medical history significant for prior episode of diverticulitis that had a microperforation who came to the ED with complaint of abdominal pain. He had recent diarrhea, abdominal pain and was concerned about recurrence of his diverticulitis episode. Initial imaging was overtly concerning however repeat imaging failed to reveal diverticulitis. Patient continues to have abdominal pain and rectal bleeding so he decided to come back to the ED and ED was deemed to be in need of medical therapy with IV antibiotics. He had discussed with surgeon Dr. Shelton for his abdominal pain issues. Patient reported that his abdominal pain is similar to the time he had a perforation secondary to worsening diverticulitis prior to this encounter. He denied overt episode of fever, chills. Empiric antibiotic therapy of Flagyl and ciprofloxacin was started for his present health issues. Hospital Course: Mr. Mullen is a pleasant 33-year-old male patient with a past medical history significant for prior episodes of diverticulitis who was admitted to the [facility] on 06/10/2023 for abdominal pain. Patient was admitted with a diagnosis of diverticulitis, antibiotic therapy with ciprofloxacin and Flagyl started, pain management therapy with Dilaudid and Tylenol as needed, and IV fluid for hydration started. Patient was seen by Dr. Shelton general surgeon , recommended to follow-up with the colorectal surgeon as an outpatient once the inflammation goes down. On 06/14/2023, patient was seen on morning rounds and deemed medically stable for discharge. Patient was discharged with instructions to schedule follow-up appointments with PCP 3 to 5 days colorectal surgeon in 2 weeks patient was provided prescriptions for ciprofloxacin 500 p.o. twice daily 7 days and Flagyl 500 mg p.o. 3 times daily 7 days. The patient was given the opportunity to ask questions and reported no further questions. 1. Please call and schedule a follow-up appointment with your PCP in 3-5 days 2. Please call and schedule a follow-up appointment with colorectal surgeon in 2 weeks - Please follow-up with your PCP for medication refills/adjustments <Annie Jha - Last Filed: 06/14/23 10:01> Admission Date: 06/10/23 Discharge Date: 06/15/23 Hospital Course: Pt seen and examined. I agree with the note by the PIPE LINE REPAIRER. Ok to discharge pt. <Nathan Suarez - Last Filed: 06/15/23 14:02> Disposition: ROUTINE DISCHARGE Discharge Condition: GOOD Vital Signs/Physical Exam: Temp Pulse Resp BP Pulse Ox 97.0 F 60 17 138/88 99 06/14/23 08:00 06/14/23 08:00 06/14/23 08:00 06/14/23 08:00 06/14/23 08:00 General: Alert, Oriented x3 HEENT: Atraumatic, Normocephalic Neck: Supple, 2+ carotid pulse no bruit Respiratory: Clear to auscultation bilaterally, Normal air movement Cardiovascular: No edema, Normal pulses Capillary refill: <2 Seconds Gastrointestinal: Normal bowel sounds, Soft and benign Musculoskeletal: No clubbing, No contractures Integumentary: No rashes, No significant lesion Neurological: Normal speech, Sensation intact Laboratory Data at Discharge: WBC 7.00 thou/uL (4.3-10.9) 06/13/23 07:55 Hgb 15.8 g/dL (13.6-17.9) 06/13/23 07:55 Hct 47.4 % (39.6-49.0) 06/13/23 07:55 Plt Count 266 thou/uL (152-406) 06/13/23 07:55 Sodium 137 mEq/L (136-145) 06/13/23 07:55 Potassium 4.4 mEq/L (3.5-5.1) 06/13/23 07:55 BUN 11 mg/dL (7-18) 06/13/23 07:55 Creatinine 1.22 mg/dL (0.70-1.30) 06/13/23 07:55 Glucose 101 mg/dL (74-106) 06/13/23 07:55 Magnesium 2.2 mg/dL (1.6-2.4) 06/13/23 07:55 Total Bilirubin 0.5 mg/dL (0.2-1.0) 06/13/23 07:55 AST 44 U/L (15-37) H 06/13/23 07:55 ALT 77 U/L (16-61) H 06/13/23 07:55 Alkaline Phosphatase 67 U/L (45-117) 06/13/23 07:55 Lipase 43 U/L (13-75) 06/10/23 17:51 <Annie Jha - Last Filed: 06/14/23 10:01> Vital Signs/Physical Exam: Temp Pulse Resp BP Pulse Ox 97.0 F 60 17 138/88 99 06/14/23 08:00 06/14/23 08:00 06/14/23 08:00 06/14/23 08:00 06/14/23 08:00 Laboratory Data at Discharge: WBC 7.00 thou/uL (4.3-10.9) 06/13/23 07:55 Hgb 15.8 g/dL (13.6-17.9) 06/13/23 07:55 Hct 47.4 % (39.6-49.0) 06/13/23 07:55 Plt Count 266 thou/uL (152-406) 06/13/23 07:55 Sodium 137 mEq/L (136-145) 06/13/23 07:55 Potassium 4.4 mEq/L (3.5-5.1) 06/13/23 07:55 BUN 11 mg/dL (7-18) 06/13/23 07:55 Creatinine 1.22 mg/dL (0.70-1.30) 06/13/23 07:55 Glucose 101 mg/dL (74-106) 06/13/23 07:55 Magnesium 2.2 mg/dL (1.6-2.4) 06/13/23 07:55 Total Bilirubin 0.5 mg/dL (0.2-1.0) 06/13/23 07:55 AST 44 U/L (15-37) H 06/13/23 07:55 ALT 77 U/L (16-61) H 06/13/23 07:55 Alkaline Phosphatase 67 U/L (45-117) 06/13/23 07:55 Lipase 43 U/L (13-75) 06/10/23 17:51 <Nathan Suarez - Last Filed: 06/15/23 14:02> Diet: Regular Activity: Ad dar Time spent managing pt's care (in minutes): 55 (minutes) <JhaAnnie - Last Filed: 06/14/23 10:01> <GisellevinayDuglascarlospipo Aryan - Last Filed: 06/15/23 14:02> Home Medications: Ciprofloxacin HCl [Cipro 500 MG Tablet] 500 mg PO BID 7 Days #14 tab 06/14/23 Metronidazole 500 mg PO TID 7 Days #21 tab 06/14/23 New Medications: Ciprofloxacin HCl [Cipro 500 MG Tablet] 500 mg PO BID 7 Days #14 tab Metronidazole 500 mg PO TID 7 Days #21 tab Physician Discharge Instructions: Mr. Mullen is a pleasant 33-year-old male patient with a past medical history significant for prior episodes of diverticulitis who was admitted to the [facility] on 06/10/2023 for abdominal pain. Patient was admitted with a diagnosis of diverticulitis, antibiotic therapy with ciprofloxacin and Flagyl started, pain management therapy with Dilaudid and Tylenol as needed, and IV fluid for hydration started. Patient was seen by Dr. Shelton general surgeon , recommended to follow-up with the colorectal surgeon as an outpatient once the inflammation goes down. On 06/14/2023, patient was seen on morning rounds and deemed medically stable for discharge. Patient was discharged with instructions to schedule follow-up appointments with PCP 3 to 5 days colorectal surgeon in 2 weeks patient was provided prescriptions for ciprofloxacin 500 p.o. twice daily 7 days and Flagyl 500 mg p.o. 3 times daily 7 days. The patient was given the opportunity to ask questions and reported no further questions. 1. Please call and schedule a follow-up appointment with your PCP in 3-5 days 2. Please call and schedule a follow-up appointment with colorectal surgeon in 2 weeks - Dr. Nadine Jameson ([phone]) - Please follow-up with your PCP for medication refills/adjustments Followup: NONE,NONE [Primary Care Provider] -
== END 2023-06-14 12:10 | disposition home or self-care (01) | DRG 379 ==
LOC: ER 17:15 → 2ND 20:35
PROVIDERS: ADMIT Internal Medicine Nephrology; ATTEND Hospitalist
DX: K57.33 Diverticulitis of large intestine without perforation or abscess with bleeding (principal); I10 Essential (primary) hypertension; Z88.5 Allergy status to narcotic agent; Z79.899 Other long term (current) drug therapy
CPT/HCPCS: 36415; 74177; 80053; 81003; 83605; 83690; 83735; 85025; 87040; 99285; J0696; J0744; J1170; J2405; J7030; Q9967

== ENCOUNTER 2024-04-08 15:25 | Emergency (ER) | payer OTHER ==
[2024-04-08] MEDS ORDERED: ONDANSETRON 4 MG/2 ML VIAL ONE (16:02)
[2024-04-08] MEDS ORDERED: MORPHINE 4 MG/ML SYR ONE (16:02)
[2024-04-08] MEDS ORDERED: NA CHLORIDE 0.9% 1,000 ML ONE (16:02)
[2024-04-08 16:13] LABS: Absolute Basophils 0.1 K/uL (0-0.5); Absolute Eosinophils 0.1 K/uL (0-0.5); Absolute Lymphocytes (CBC) 3.6 K/uL (0.7-4.9); Absolute Monocytes 0.8 K/uL (0.1-1.3); Basophils % 0.7 % (0-1.3); Eosinophils % 1.9 % (0-4.4); Hematocrit 46.3 % (39.6-49.0); Hemoglobin 15.7 g/dL (13.6-17.9); Lymphocytes % 47.7 % (15.3-44.8); MCH 30.6 pg (27.0-35.0); MCHC 33.9 g/dL (32.0-36.0); MCV 90.2 fL (80-100); MPV 8.4 fL (7.6-11.3); Monocytes % 10.2 % (3.3-12.3); Neutrophils % 39.5 % (41.7-73.7); Nucleated Red Blood Cells % 0.1 % (0-0); Platelets 252 thou/uL (152-406); RBC Red Blood Cell Count 5.14 M/uL (4.33-5.43); Red Cell Distribution Width 14.1 % (12.1-15.2)
[2024-04-08 16:34] LABS: Anion Gap 8.8 mEq/L (5.0-15.0); Bilirubin Total 0.6 mg/dL (0.2-1.0); Globulin 3.9 g/dL (2.3-3.5); Potassium 3.8 mEq/L (3.5-5.1); Protein, Total 7.9 g/dL (6.4-8.2)
--- NOTE | 2024-04-08 17:14 | RAD REPORT ---
EXAMINATION: CT ABDOMEN AND PELVIS WITH CONTRAST CLINICAL INDICATION: ABD PAIN TECHNIQUE: CT abdomen and pelvis was performed, after the administration of IV contrast, as per depar [facility] behavioral care protocol. Axial, sagittal and coronal reconstructions were obtained. One or more of the following dose reduction techniques were used: Automated exposure control, adjustment of the mA and k V according to patient size, and iterative reconstruction. Unless otherwise specified, incidental findings do not require dedicated imaging follow-up. COMPARISON: No prior exam. FINDINGS: LOWER CHEST: The visualized lung bases are clear. LIVER: Normal in size and contour. No focal lesion. Grossly unremarkable gallbladder. SPLEEN: Normal size. No focal lesion. PANCREAS: No mass, ductal dilation, or peter-pancreatic fluid. ADRENALS: Normal; no mass. KIDNEYS: Normal size and contour. No hydronephrosis. GASTROINTESTINAL TRACT: No evidence of free air, significant intra-abdominal free fluid, bowel obstru ction or abscess. Moderate stool is retained throughout the colon. APPENDIX: Normal appendix. LYMPH NODES: No lymphadenopathy. MUSCULOSKELETAL: No acute or suspicious osseous abnormality. ADDITIONAL FINDINGS: None. IMPRESSION: No acute or concerning abnormalities seen in the abdomen or pelvis. Moderate rectosigmoid and colonic fecal retention.
[2024-04-08] MEDS ORDERED: MAGNESIUM CITRATE 300 ML BOT ONE (17:28)
[2024-04-08 17:34] LABS: Urine Bilirubin NEGATIVE (Negative); Urine Blood Negative (Negative); Urine Clarity Clear (Clear); Urine Color Light-Yellow (Yellow); Urine Glucose NEGATIVE (Negative); Urine Ketones NEGATIVE (Negative); Urine Microscopic Reflex YN NO UMIC; Urine Nitrite NEGATIVE (Negative); Urine Protein NEGATIVE (Negative); Urine Urobilinogen Normal (Normal); Urine pH 5.5 (5.0-7.0)
--- NOTE | 2024-04-08 18:10 | ER ---
Nurse's Notes [facility] Name: Miller Mullen Age: 34 yrs Sex: Male : 1990 Arrival Date: 04/08/2024 Time: 15:25 Bed 24 Private MD: Diagnosis: Constipation Presentation: 04/08 15:33 Chief complaint: Patient states: lower abdominal pain going into rectum, started ko1 yesterday. Coronavirus screen: At this time, the client does not indicate any symptoms associated with coronavirus-19. Ebola Screen: No symptoms or risks identified at this time. Initial Sepsis Screen: Does the patient meet any 2 criteria? No. Patient's initial sepsis screen is negative. Does the patient have a suspected source of infection? No. Patient's initial sepsis screen is negative. Risk Assessment: Do you want to hurt yourself or someone else? Patient reports no desire to harm self or others. Onset of symptoms was April 08, 2024. 15:33 Method Of Arrival: Ambulatory ko1 15:33 Acuity: MT 3 ko1 Triage Assessment: 15:34 General: Appears in no apparent distress. uncomfortable, Behavior is calm, cooperative, ko1 appropriate for age. Pain: Complains of pain in lower abdomen. GI: Reports lower abdominal pain, cramping, nausea, vomiting. Historical: - Allergies: 15:34 Codeine; ko1 - Home Meds: 15:34 None [Active]; ko1 - PMHx: 15:34 Diverticulitis; ko1 - PSHx: 15:34 colon resection; ko1 - Immunization history:: Adult Immunizations unknown. - Infectious Disease History:: Denies. - Social history:: Smoking status: Patient denies any tobacco usage or history of. Screenin:45 [facility] ED Fall Risk Assessment (Adult) History of falling in the last 3 months, me1 including since admission No falls in past 3 months (0 pts) Confusion or Disorientation No (0 pts) Intoxicated or Sedated No (0 pts) Impaired Gait No (0 pts) Mobility Assist Device Used No (0 pt) Altered Elimination No (0 pt) Score/Fall Risk Level 0 - 2 = Low Risk Maintained a safe environment, Provided non-skid footwear, Hourly rounding (assess needs \T\ fall precautionary measures) done. Abuse screen: Denies threats or abuse. Nutritional screening: No deficits noted. Tuberculosis screening: No symptoms or risk factors identified. Assessment: 16:11 Reassessment: No changes from previously documented assessment. Patient and/or family ll1 updated on plan of care and expected duration. Pain level reassessed. Patient is alert, oriented x 3, equal unlabored respirations, skin warm/dry/pink. 16:45 General: Appears uncomfortable, well groomed, well developed, well nourished, Behavior me1 is calm, cooperative, appropriate for age. Pain: Complains of pain in left lower quadrant and suprapubic area Pain does not radiate. Pain currently is 6 out of 10 on a pain scale. Quality of pain is described as crampy, Pain began 1 day ago. Is continuous. Neuro: Level of Consciousness is awake, alert, obeys commands, Oriented to person, place, time, situation, Appropriate for age. Cardiovascular: Patient's skin is warm and dry. Respiratory: Airway is patent Respiratory effort is even, unlabored, Respiratory pattern is regular, symmetrical. GI: Abdomen is non-distended, Bowel sounds present X 4 quads. Abd is soft X 4 quads Reports lower abdominal pain, nausea, vomiting, since yesterday. : No signs and/or symptoms were reported regarding the genitourinary system. EENT: No signs and/or symptoms were reported regarding the EENT system. Derm: Skin is intact, is healthy with good turgor, Skin is pink, warm \T\ dry. Musculoskeletal: No signs and/or symptoms reported regarding the musculoskeletal system. Vital Signs: 15:33 BP 133 / 94; Pulse 88; Resp 17; Temp 98.2; Pulse Ox 99% on R/A; ko1 17:00 BP 126 / 83; Pulse 68; Resp 16; Pulse Ox 100% ; me1 18:39 BP 125 / 73; Pulse 77; Resp 16; Temp 98; Pulse Ox 100% ; ap3 ED Course: 15:29 Patient arrived in ED. mg5 15:30 Lilibeth Balderas FNP-C [facility]. kb 15:30 Gorge Howard MD is Attending Physician. kb 15:34 Triage completed. ko1 15:34 Arm band placed on right wrist. Patient placed in an exam room, on a stretcher, on ko1 satellite project site monitor, on pulse oximetry, Patient notified of wait time. 15:49 Mamta Garcia, RN is Primary Nurse. ap3 15:56 Primary Nurse role handed off by Mamta Garcia, SIENA ll1 15:56 Christina Miller, RN is Primary Nurse. ll1 16:32 Radiology exam delayed due to lab results not completed at this time. (BUN/Creatinine). sm9 16:45 Patient has correct armband on for positive identification. Bed in low position. Call me1 light in reach. Side rails up X2. Provided Education on: POC. Verbalized understanding. . Client placed on continuous cardiac and pulse oximetry monitoring. NIBP monitoring applied. Pulse ox on. NIBP on. 16:45 No provider procedures requiring assistance completed. Inserted saline lock: 22 gauge me1 in left antecubital area, using aseptic technique. 16:56 CT Abd/Pelvis - IV Contrast Only In Process Unspecified. EDMS 17:24 Urinalysis w/ reflexes Sent. me1 17:24 Urine collected: clean catch specimen, clear. me1 18:40 IV discontinued, intact, bleeding controlled, No redness/swelling at site. Pressure ap3 dressing applied. Administered Medications: 16:09 Drug: NS 0.9% IV 1000 ml IV at 1 bolus Per protocol; to be given as a bolus over 60 ll1 minutes Route: IV; Rate: 1 bolus; Site: left antecubital; 18:41 Follow up: IV Status: Completed infusion; IV Intake: 1000ml ap3 16:10 Drug: Ondansetron IVP 4 mg IVP once; over 2 minutes Route: IVP; Site: left antecubital; ll1 17:29 Follow up: Response: No adverse reaction; Nausea is decreased me1 17:29 Drug: Magnesium Citrate PO Liquid 300 ml PO once Route: PO; me1 18:41 Follow up: Response: No adverse reaction ap3 Medication: 16:45 VIS not applicable for this client. me1 Intake: 18:41 IV: 1000ml; Total: 1000ml. ap3 Outcome: 18:10 Discharge ordered by MD. long 18:40 Discharged to home ambulatory, ap3 18:40 Condition: good 18:40 Discharge instructions given to patient, Instructed on discharge instructions, follow up and referral plans. Demonstrated understanding of instructions, follow-up care, 18:41 Patient left the ED. ap3 Signatures: Dispatcher [employer] EDMS Lilibeth Balderas, PRAFUL-C TRANSMISSION MECHANIC-Mamta Box RN RN ap3 Christina Miller RN RN ll1 Victorina Genao RN RN ko1 Eugenia Ta RN RN vt1 Rosetta Irwin 5 Ivy Meier 9 Corrections: (The following items were deleted from the chart) 15:35 15:34 PMHx: Hypertension; ko1 ko1
--- NOTE | 2024-04-08 18:11 | EDPHYS ---
Physician Documentation [facility] Name: Miller Mullen Age: 34 yrs Sex: Male : 1990 Arrival Date: 04/08/2024 Time: 15:25 Bed 24 Private MD: ED Physician Gorge Howard HPI: 04/08 15:47 This 34 yrs old Male presents to ER via Ambulatory with complaints of Abdominal Pain. kb 15:47 Patient is a 34-year-old male who presents for suprapubic pain that radiates to the kb rectum that started yesterday. Reports nausea and vomiting x 2 yesterday. States he had a little nausea this morning but drinks some unsweet tea and it resolved. Denies vomiting today denies diarrhea or fever. Reports pain as throbbing with intermittent stabbing pain and it is similar to previous colon rupture. Reports colon resection done by Dr. Vargas on August 11 of this year.. Historical: - Allergies: 15:34 Codeine; ko1 - Home Meds: 15:34 None [Active]; ko1 - PMHx: 15:34 Diverticulitis; ko1 - PSHx: 15:34 colon resection; ko1 - Immunization history:: Adult Immunizations unknown. - Infectious Disease History:: Denies. - Social history:: Smoking status: Patient denies any tobacco usage or history of. ROS: 15:49 Constitutional: As per HPI kb Exam: 15:49 Constitutional: This is a well developed, well nourished patient who is awake, alert, kb and in no acute distress. Head/Face: Normocephalic, atraumatic. ENT: Moist Mucous membranes Cardiovascular: Regular rate Respiratory: Respirations even and unlabored. No increased work of breathing. Talking in full sentences Skin: Warm, dry with normal turgor. Normal color. MS/ Extremity: Pulses equal, no cyanosis. Neurovascular intact. Full, normal range of motion. Neuro: Awake and alert, GCS 15, oriented to person, place, time, and situation. 15:49 Abdomen/GI: Inspection: abdomen appears normal, Bowel sounds: normal, Palpation: soft, in all quadrants, mild abdominal tenderness, in the suprapubic area and left lower quadrant, Vital Signs: 15:33 BP 133 / 94; Pulse 88; Resp 17; Temp 98.2; Pulse Ox 99% on R/A; ko1 17:00 BP 126 / 83; Pulse 68; Resp 16; Pulse Ox 100% ; me1 18:39 BP 125 / 73; Pulse 77; Resp 16; Temp 98; Pulse Ox 100% ; ap3 MDM: 15:31 Medical Screening Exam initiated kb 15:50 Data reviewed: vital signs, nurses notes. kb 18:10 Differential diagnosis: uti, diverticulitis, bowel obstruction, constipation. kb Counseling: I had a detailed discussion with the patient and/or guardian regarding the historical points, exam findings, and any diagnostic results supporting the discharge/admit diagnosis, lab results, radiology results, the need for outpatient follow up, a family practitioner, to return to the emergency department if symptoms worsen or persist or if there are any questions or concerns that arise at home. 04/08 15:40 Order name: CBC with Diff; Complete Time: 16:21 kb 04/08 15:40 Order name: CMP; Complete Time: 16:35 kb 04/08 15:40 Order name: Lipase; Complete Time: 16:35 kb 04/08 15:40 Order name: Urinalysis w/ reflexes; Complete Time: 17:47 kb 04/08 15:40 Order name: CT Abd/Pelvis - IV Contrast Only; Complete Time: 17:15 kb 04/08 15:40 Order name: IV Saline Lock; Complete Time: 15:49 kb 04/08 15:40 Order name: Labs collected and sent; Complete Time: 15:49 kb Administered Medications: 16:09 Drug: NS 0.9% IV 1000 ml IV at 1 bolus Per protocol; to be given as a bolus over 60 ll1 minutes Route: IV; Rate: 1 bolus; Site: left antecubital; 18:41 Follow up: IV Status: Completed infusion; IV Intake: 1000ml ap3 16:10 Drug: Ondansetron IVP 4 mg IVP once; over 2 minutes Route: IVP; Site: left antecubital; ll1 17:29 Follow up: Response: No adverse reaction; Nausea is decreased me1 17:29 Drug: Magnesium Citrate PO Liquid 300 ml PO once Route: PO; me1 18:41 Follow up: Response: No adverse reaction ap3 Disposition: 19:53 Co-signature as Attending Physician, Goreg Howard MD I reviewed the patient's care rn provided by the Advanced Practice Provider and agree with the diagnosis and treatment plan. Disposition Summary: 04/08/24 18:10 Discharge Ordered Notes: Location: Home kb Condition: Stable kb Diagnosis - Constipation kb Followup: kb - With: Emergency Department - When: As needed - Reason: Worsening of condition Followup: kb - With: Private Physician - When: 2 - 3 days - Reason: Recheck today's complaints, Continuance of care, Re-evaluation by your physician Discharge Instructions: - Discharge Summary Sheet kb - Constipation, Adult, [id number] kb Forms: - Medication Reconciliation Form kb - Antibiotic Education kb - Prescription Opioid Use kb - Patient Portal Instructions kb - Leadership Thank You Letter kb Signatures: Dispatcher [employer] EDMS Lilibeth Balderas, VESSEL SLAG WORKER-C VESSEL SLAG WORKER-Ckb Gorge Howard MD MD rn Christina Miller RN RN ll1 Victorina Genao RN RN ko1 Eugenia Ta RN RN me1 Mamta Garcia RN ap3 Corrections: (The following items were deleted from the chart) 15:35 15:34 PMHx: Hypertension; ko1 ko1 15:40 15:40 CBC+H.LAB.BRZ ordered. EDMS EDMS 15:40 15:40 COMPREHENSIVE METABOLIC PANEL+C.LAB.BRZ ordered. EDMS EDMS 15:40 15:40 LIPASE+C.LAB.BRZ ordered. EDMS EDMS 15:40 15:40 Urinalysis+U.LAB.BRZ ordered. EDMS EDMS
[2024-04-08 19:22] VITALS: O2SAT 100
[2024-04-08 19:23] VITALS: BP 125/73; TEMP 98
== END 2024-04-08 18:41 | disposition home or self-care (01) ==
LOC: ER 15:25
DX: K59.00 Constipation, unspecified (principal)
CPT/HCPCS: 85025; 36415; 81003; 83690; 80053; 74177; Q9967; J2405; J7030

== ENCOUNTER 2024-04-21 10:35 | Inpatient (IN) | payer OTHER ==
[2024-04-21] MEDS ORDERED: ONDANSETRON 4 MG/2 ML VIAL ONE (11:06)
[2024-04-21] MEDS ORDERED: NA CHLORIDE 0.9% 1,000 ML ONE (11:07)
[2024-04-21 11:09] LABS: Absolute Eosinophils 0.1 K/uL (0-0.5); Absolute Lymphocytes (CBC) 1.4 K/uL (0.7-4.9); Absolute Monocytes 1.1 K/uL (0.1-1.3); Absolute Neutrophil 9.7 K/uL (1.8-8.0); Basophils % 0.2 % (0-1.3); Eosinophils % 0.6 % (0-4.4); Hematocrit 47.7 % (39.6-49.0); Hemoglobin 15.9 g/dL (13.6-17.9); Lymphocytes % 11.3 % (15.3-44.8); MCH 30.4 pg (27.0-35.0); MCHC 33.3 g/dL (32.0-36.0); MCV 91.3 fL (80-100); MPV 8.5 fL (7.6-11.3); Monocytes % 8.8 % (3.3-12.3); Neutrophils % 79.1 % (41.7-73.7); Platelets 223 thou/uL (152-406); RBC Red Blood Cell Count 5.22 M/uL (4.33-5.43); Red Cell Distribution Width 13.9 % (12.1-15.2)
[2024-04-21] MEDS ORDERED: MORPHINE 4 MG/ML SYR ONE (11:16)
--- NOTE | 2024-04-21 11:27 | RAD REPORT ---
EXAMINATION: CT ABDOMEN AND PELVIS WITH CONTRAST CLINICAL INDICATION: Abd pain;Nausea / vomiting TECHNIQUE: CT abdomen and pelvis was performed, after the administration of IV contrast, as per [facility] protocol. Axial, sagittal and coronal reconstructions were obtained. One or more of the following dose reduction techniques were used: Automated exposure control, adjustment of the mA and k V according to patient size, and iterative reconstruction. Unless otherwise specified, incidental findings do not require dedicated imaging follow-up. COMPARISON: 04/08/2024 FINDINGS: LOWER CHEST: The visualized lung bases are clear. LIVER: Normal in size and contour. No focal lesion. Grossly unremarkable gallbladder. SPLEEN: Normal size. No focal lesion. PANCREAS: No mass, ductal dilation, or peter-pancreatic fluid. ADRENALS: Normal; no mass. KIDNEYS: Normal size and contour. No hydronephrosis. GASTROINTESTINAL TRACT: No evidence of free air, significant intra-abdominal free fluid, bowel obstru ction or abscess. Postsurgical changes in the region of the sigmoid colon. APPENDIX: Normal appendix. LYMPH NODES: No lymphadenopathy. MUSCULOSKELETAL: No acute or suspicious osseous abnormality. ADDITIONAL FINDINGS: None. IMPRESSION: No acute or concerning abnormalities seen in the abdomen or pelvis.
[2024-04-21 11:55] LABS: Albumin 3.7 g/dL (3.4-5.0); Albumin/Globulin Ratio 1.1 (1.1-1.8); Anion Gap 9.6 mEq/L (5.0-15.0); Bilirubin Total 0.6 mg/dL (0.2-1.0); Globulin 3.5 g/dL (2.3-3.5); Potassium 3.6 mEq/L (3.5-5.1); Protein, Total 7.2 g/dL (6.4-8.2)
[2024-04-21] MEDS ORDERED: PROMETHAZINE INJ 25 MG/ML AMP ONE ×2 (12:55→14:31)
--- NOTE | 2024-04-21 14:15 | ER ---
Nurse's Notes [facility] Name: Miller Mullen Age: 34 yrs Sex: Male : 1990 Arrival Date: 04/21/2024 Time: 10:35 Bed 4 Private MD: Diagnosis: Abdominal pain, unspecified;Intractable vomiting Presentation: 04/21 10:42 Chief complaint: Patient states: lower abd pain , hx of diverticulitis, started a few iw weeks ago , pain got worse a few days ago , sees Dr. Gonzáles. Coronavirus screen: At this time, the client does not indicate any symptoms associated with coronavirus-19. Ebola Screen: No symptoms or risks identified at this time. Initial Sepsis Screen: Does the patient meet any 2 criteria? No. Patient's initial sepsis screen is negative. Does the patient have a suspected source of infection? No. Patient's initial sepsis screen is negative. Risk Assessment: Do you want to hurt yourself or someone else? Patient reports no desire to harm self or others. Onset of symptoms was April 18, 2024. 10:42 Method Of Arrival: Ambulatory 10:42 Acuity: MT 3 iw Historical: - Allergies: 10:44 Codeine; iw - PMHx: 10:44 Diverticulitis; iw - PSHx: 10:44 colon resection; iw - Infectious Disease History:: Denies. - Social history:: Smoking status: Patient denies any tobacco usage or history of. - Family history:: not pertinent. - Hospitalizations: : No recent hospitalization is reported. Screenin:34 [facility] ED Fall Risk Assessment (Adult) History of falling in the last 3 months, kc6 including since admission No falls in past 3 months (0 pts) Confusion or Disorientation No (0 pts) Intoxicated or Sedated No (0 pts) Impaired Gait No (0 pts) Mobility Assist Device Used No (0 pt) Altered Elimination No (0 pt) Score/Fall Risk Level 0 - 2 = Low Risk Oriented to surroundings, Maintained a safe environment. Abuse screen: Denies threats or abuse. Denies injuries from another. Nutritional screening: No deficits noted. Tuberculosis screening: No symptoms or risk factors identified. Assessment: 11:35 General: Appears in no apparent distress. uncomfortable, well groomed, well developed, kc6 Behavior is calm, cooperative, appropriate for age. Pain: Complains of pain in abdomen. Neuro: Level of Consciousness is awake, alert, obeys commands, Oriented to person, place, time, situation, Appropriate for age. Cardiovascular: Capillary refill < 3 seconds. Respiratory: Airway is patent Trachea midline Respiratory effort is even, unlabored, Respiratory pattern is regular, symmetrical. GI: Abdomen is flat, non-distended, Bowel sounds present X 4 quads. Reports lower abdominal pain, upper abdominal pain, diarrhea, nausea, vomiting. : No signs and/or symptoms were reported regarding the genitourinary system. EENT: No signs and/or symptoms were reported regarding the EENT system. Derm: No signs and/or symptoms reported regarding the dermatologic system. Skin is intact, is healthy with good turgor, Skin is pink, warm \T\ dry. Musculoskeletal: No signs and/or symptoms reported regarding the musculoskeletal system. Circulation, motion, and sensation intact. Capillary refill < 3 seconds, Range of motion: intact in all extremities. 12:35 Reassessment: Patient appears in no apparent distress at this time. No changes from kc6 previously documented assessment. Patient and/or family updated on plan of care and expected duration. Pain level reassessed. Patient is alert, oriented x 3, equal unlabored respirations, skin warm/dry/pink. 13:35 Reassessment: Patient appears in no apparent distress at this time. No changes from kc6 previously documented assessment. Patient and/or family updated on plan of care and expected duration. Pain level reassessed. Patient is alert, oriented x 3, equal unlabored respirations, skin warm/dry/pink. 14:26 Reassessment: Patient appears in no apparent distress at this time. No changes from kc6 previously documented assessment. Patient and/or family updated on plan of care and expected duration. Pain level reassessed. Patient is alert, oriented x 3, equal unlabored respirations, skin warm/dry/pink. 14:30 GI: Reports nausea. kc6 15:30 Reassessment: Patient appears in no apparent distress at this time. No changes from kc6 previously documented assessment. Patient and/or family updated on plan of care and expected duration. Pain level reassessed. Patient is alert, oriented x 3, equal unlabored respirations, skin warm/dry/pink. 17:53 Reassessment: Patient appears in no apparent distress at this time. No changes from kc6 previously documented assessment. Patient and/or family updated on plan of care and expected duration. Pain level reassessed. Patient is alert, oriented x 3, equal unlabored respirations, skin warm/dry/pink. Vital Signs: 10:42 BP 134 / 93; Pulse 90; Resp 16; Pulse Ox 98% on R/A; Weight 108.86 kg; Height 6 ft. 5 iw in. ; Pain 10/10; 11:34 BP 123 / 80; Pulse 94; Resp 19 S; Temp 97.8(O); Pulse Ox 100% on R/A; Pain 10/10; kc6 12:10 BP 137 / 87; Pulse 101; Pulse Ox 100% on R/A; ap3 13:56 BP 138 / 89; Pulse 114; Pulse Ox 99% on R/A; ap3 14:26 BP 138 / 82; Pulse 116; Resp 18 S; Temp 100.3(O); Pulse Ox 99% on R/A; kc6 15:31 BP 125 / 72; Pulse 111; Resp 19 S; Pulse Ox 100% on R/A; kc6 10:42 Body Mass Index 28.46 (108.86 kg, 195.58 cm) iw 10:42 Pain Scale: Adult iw 11:34 Pain Scale: Adult kc6 ED Course: 10:37 Patient arrived in ED. im 10:37 Gorge Howard MD is Attending Physician. rn 10:43 Triage completed. iw 10:44 Arm band placed on. iw 10:48 Radiology exam delayed due to pt needs meds prior to CT. ls3 11:04 Initial lab(s) drawn, by or, sent to lab. Inserted saline lock: 20 gauge in left iw antecubital area, using aseptic technique. Blood collected. Flushed with 10 mL NS. 11:05 Cherise Singleton, SIENA is Primary Nurse. kc6 11:22 CT Abd/Pelvis - IV Contrast Only In Process Unspecified. EDMS 11:34 Patient has correct armband on for positive identification. Bed in low position. Call kc6 light in reach. Side rails up X 1. Pulse ox on. NIBP on. Door closed. Noise minimized. Lights dimmed. Warm blanket given. Pillow given. 11:34 Patient maintains SpO2 saturation greater than 95% on room air. kc6 14:14 Anthony Webb MD is Hospitalizing Provider. rn 17:53 No provider procedures requiring assistance completed. Patient admitted, IV remains in kc6 place. Administered Medications: 11:11 Drug: Ondansetron IVP 4 mg IVP once; over 2 minutes Route: IVP; Site: left forearm; kc6 11:34 Follow up: Response: No adverse reaction kc6 11:11 Drug: NS 0.9% IV 1000 ml IV at 1 bolus Per protocol; to be given as a bolus over 60 kc6 minutes Route: IV; Rate: 1 bolus; Site: left forearm; 14:26 Follow up: Response: No adverse reaction; IV Status: Completed infusion; IV Intake: kc6 1000ml 11:34 Drug: morphine IVP or IV 4 mg IVP once over 4 mins Route: IVP; Infused Over: 4 mins; kc6 Site: left antecubital; 12:58 Follow up: Response: No adverse reaction; Pain is decreased kc6 12:58 Drug: Promethazine IVP 12.5 mg IVP once Route: IVP; Site: left antecubital; kc6 14:26 Follow up: Response: No adverse reaction; Nausea is decreased kc6 14:45 Drug: Acetaminophen PO 650 mg PO once Route: PO; kc6 14:45 Drug: Promethazine IVP 12.5 mg IVP once Route: IVP; Site: left antecubital; kc6 15:31 Follow up: Response: No adverse reaction; Nausea is decreased kc6 Medication: 17:54 VIS not applicable for this client. kc6 Intake: 14:26 IV: 1000ml; Total: 1000ml. kc6 Outcome: 14:15 Decision to Hospitalize by Provider. rn 17:54 Admitted to Med/surg accompanied by tech, via wheelchair, room 218, with chart, kc6 17:54 Condition: good 17:54 Instructed on the need for admit, 17:54 Patient left the ED. kc6 Signatures: Dispatcher [employer] EDMS Tracey Tyler RN RN iw Nieto, Roman, MD MD rn Prokisch, Amanda, RN RN ap3 Siler, Lynzie ls3 Cherise Singleton RN RN kc6 Heaven Terry Corrections: (The following items were deleted from the chart) 10:44 10:42 Chief complaint: Patient states: lower abd pain , hx of diverticulitis, started a iw few weeks ago iw 14:30 14:26 BP 138 / 82; Pulse 116bpm; Resp 18bpm; Spontaneous; Pulse Ox 99% RA; kc6 kc6
--- NOTE | 2024-04-21 14:16 | EDPHYS ---
Physician Documentation [facility] Name: Miller Mullen Age: 34 yrs Sex: Male : 1990 Arrival Date: 04/21/2024 Time: 10:35 Bed 4 Private MD: ED Physician Gorge Howard HPI: 04/21 11:09 This 34 yrs old Male presents to ER via Ambulatory with complaints of Abdominal Pain, rn Vomiting/Diarrhea. 11:09 The patient presents to the emergency department with nausea, vomiting, abdominal pain. rn Onset: The symptoms/episode began/occurred 1 week(s) ago. Possible causes: unknown. The symptoms are aggravated by nothing. The symptoms are alleviated by nothing. Severity of symptoms: At their worst the symptoms were moderate in the emergency department the symptoms are unchanged. The patient has experienced similar episodes in the past. Patient reports diffuse abdominal pain that began 1 week ago. States seen here, sent home with antibiotics and medication for constipation that did not improve symptoms. Denies fever or chills. No blood in stool. Has had diverticulitis in the past. No history of kidney stones.. Historical: - Allergies: 10:44 Codeine; iw - PMHx: 10:44 Diverticulitis; iw - PSHx: 10:44 colon resection; iw - Infectious Disease History:: Denies. - Social history:: Smoking status: Patient denies any tobacco usage or history of. - Family history:: not pertinent. - Hospitalizations: : No recent hospitalization is reported. ROS: 11:09 Constitutional: Negative for fever, chills, and weight loss, Cardiovascular: Negative rn for chest pain, palpitations, and edema, Respiratory: Negative for shortness of breath, cough, wheezing, and pleuritic chest pain, Abdomen/GI: Positive for abdominal pain with nausea and vomiting MS/Extremity: Negative for injury and deformity, Skin: Negative for injury, rash, and discoloration, Neuro: Positive for generalized weakness Exam: 11:09 Constitutional: This is a well developed, well nourished patient who is awake, alert, rn appears uncomfortable and actively vomiting Cardiovascular: Regular rate and rhythm. No pulse deficits. Respiratory: No increased work of breathing, no retractions or nasal flaring. Abdomen/GI: Soft, bilateral lower quadrant tenderness without rebound MS/ Extremity: Pulses equal, no cyanosis. Neuro: Awake and alert, GCS 15 Vital Signs: 10:42 BP 134 / 93; Pulse 90; Resp 16; Pulse Ox 98% on R/A; Weight 108.86 kg; Height 6 ft. 5 iw in. ; Pain 10/10; 11:34 BP 123 / 80; Pulse 94; Resp 19 S; Temp 97.8(O); Pulse Ox 100% on R/A; Pain 10/10; kc6 12:10 BP 137 / 87; Pulse 101; Pulse Ox 100% on R/A; ap3 13:56 BP 138 / 89; Pulse 114; Pulse Ox 99% on R/A; ap3 14:26 BP 138 / 82; Pulse 116; Resp 18 S; Temp 100.3(O); Pulse Ox 99% on R/A; kc6 15:31 BP 125 / 72; Pulse 111; Resp 19 S; Pulse Ox 100% on R/A; kc6 10:42 Body Mass Index 28.46 (108.86 kg, 195.58 cm) iw 10:42 Pain Scale: Adult iw 11:34 Pain Scale: Adult kc6 MDM: 10:37 Medical Screening Exam initiated rn 14:13 Differential diagnosis: Nonspecific abd pain, appendicitis, diverticulitis, viral rn gastroenteritis, gastroenteritis. Data reviewed: vital signs, nurses notes, lab test result(s), radiologic studies, CT scan, and as a result, I will admit patient. Consideration of Admission/Observation Patient was admitted/placed on observation. Escalation of care including admission/observation considered. Counseling: I had a detailed discussion with the patient and/or guardian regarding the historical points, exam findings, and any diagnostic results supporting the discharge/admit diagnosis, lab results, radiology results, the need for outpatient follow up, to return to the emergency department if symptoms worsen or persist or if there are any questions or concerns that arise at home. Special discussion:. ED course: Patient still report reports not feeling well, reports persistent pain with nausea and vomiting despite Zofran and Phenergan. Still tachycardic. CT abdomen pelvis without acute findings. CT abdomen pelvis 2 weeks ago also negative. Will admit for intractable pain and vomiting.. 04/21 10:38 Order name: CBC with Diff; Complete Time: 11:28 rn 04/21 10:38 Order name: CMP; Complete Time: 11:57 rn 04/21 10:38 Order name: Lipase; Complete Time: 11:57 rn 04/21 15:03 Order name: CBC with Automated Diff EDMS 04/21 15:03 Order name: CBC with Automated Diff EDMS 04/21 15:03 Order name: Comprehensive Metabolic Panel EDMS 04/21 15:03 Order name: Comprehensive Metabolic Panel EDMS 04/21 15:03 Order name: Lipid Profile EDMS 04/21 15:03 Order name: Lipid Profile EDAK 04/21 10:38 Order name: CT Abd/Pelvis - IV Contrast Only; Complete Time: 11:28 rn 04/21 15:03 Order name: CONS Physician Consult EDAK 04/21 10:38 Order name: IV Saline Lock; Complete Time: 11:05 rn 04/21 10:38 Order name: Labs collected and sent; Complete Time: 11: rn 04/21 11:15 Order name: Labs - recollect needed: recollect green top; Complete Time: 11:34 bd Administered Medications: 11:11 Drug: Ondansetron IVP 4 mg IVP once; over 2 minutes Route: IVP; Site: left forearm; kc6 11:34 Follow up: Response: No adverse reaction kc6 11:11 Drug: NS 0.9% IV 1000 ml IV at 1 bolus Per protocol; to be given as a bolus over 60 kc6 minutes Route: IV; Rate: 1 bolus; Site: left forearm; 14:26 Follow up: Response: No adverse reaction; IV Status: Completed infusion; IV Intake: kc6 1000ml 11:34 Drug: morphine IVP or IV 4 mg IVP once over 4 mins Route: IVP; Infused Over: 4 mins; kc6 Site: left antecubital; 12:58 Follow up: Response: No adverse reaction; Pain is decreased kc6 12:58 Drug: Promethazine IVP 12.5 mg IVP once Route: IVP; Site: left antecubital; kc6 14:26 Follow up: Response: No adverse reaction; Nausea is decreased kc6 14:45 Drug: Acetaminophen PO 650 mg PO once Route: PO; kc6 14:45 Drug: Promethazine IVP 12.5 mg IVP once Route: IVP; Site: left antecubital; kc6 15:31 Follow up: Response: No adverse reaction; Nausea is decreased kc6 Disposition Summary: 04/21/24 14:15 Hospitalization Ordered Notes: Hospitalization Status: Observation rn Provider: Anthony Webb rn Location: Telemetry/MedSurg (observation) rn Condition: Stable rn Problem: new rn Symptoms: have improved rn Bed/Room Type: Standard rn Room Assignment: 218(04/21/24 16:49) bd Diagnosis - Abdominal pain, unspecified rn - Intractable vomiting rn Forms: - Medication Reconciliation Form rn - SBAR form rn - Leadership Thank You Letter rn Signatures: Dispatcher [employer] EDAK Kristin Patino Tracey Tyler RN RN Gorge Dixon MD MD rn Campbell, Kaitlyn RN RN kc6 Corrections: (The following items were deleted from the chart) 10:38 10:38 Abdomen Pelvis W Con+CT.RAD.BRZ ordered. [facility] 16:49 14:15 rn bd
[2024-04-21] MEDS ORDERED: ACETAMINOPHEN 325 MG TABLET ONE (14:31)
[2024-04-21] MEDS ORDERED: ACETAMINOPHEN 500 MG TAB PO PRN (14:56)
[2024-04-21] MEDS ORDERED: ONDANSETRON 4 MG/2 ML VIAL IV PRN (14:56)
[2024-04-21] MEDS: NA CHLORIDE 0.9% 1,000 ML IV SCH (15:00)
[2024-04-21] MEDS: MORPHINE 2 MG/ML SYR IV PRN (18:41)
[2024-04-21 20:08] VITALS: BMI 32.5
[2024-04-21 22:26] VITALS: O2SAT 100
[2024-04-22 06:33] LABS: Absolute Lymphocytes (CBC) 2.4 K/uL (0.7-4.9); Absolute Neutrophil 4.6 K/uL (1.8-8.0); Basophils % 0.2 % (0-1.3); Eosinophils % 0.4 % (0-4.4); Hematocrit 41.3 % (39.6-49.0); Hemoglobin 14.1 g/dL (13.6-17.9); Lymphocytes % 30.3 % (15.3-44.8); MCH 30.9 pg (27.0-35.0); MCHC 34.2 g/dL (32.0-36.0); MCV 90.4 fL (80-100); MPV 8.3 fL (7.6-11.3); Monocytes % 12.4 % (3.3-12.3); Neutrophils % 56.7 % (41.7-73.7); Nucleated Red Blood Cells % 0.1 % (0-0); Platelets 191 thou/uL (152-406); RBC Red Blood Cell Count 4.57 M/uL (4.33-5.43); Red Cell Distribution Width 13.7 % (12.1-15.2)
[2024-04-22 06:54] LABS: Albumin/Globulin Ratio 0.9 (1.1-1.8); Anion Gap 6.9 mEq/L (5.0-15.0); Bilirubin Total 0.8 mg/dL (0.2-1.0); Globulin 3.2 g/dL (2.3-3.5); Potassium 3.9 mEq/L (3.5-5.1); Protein, Total 6.2 g/dL (6.4-8.2)
--- NOTE | 2024-04-22 12:21 | P.HP ---
Certification for Inpatient Patient admitted to: Inpatient With expected LOS: >2 Midnights Patient will require the following post-hospital care: None Practitioner: I am a practitioner with admitting privileges, knowledge of patient current condition, hospital course, and medical plan of care. Services: Services provided to patient in accordance with Admission requirements found in Title 42 Section 412.3 of the Code of Federal Regulations Patient History Date of Service: 04/21/24 Reason for admission: Abdominal pain History of Present Illness: Patient is a 34-year-old gentleman came to the hospital with abdominal pain. Patient has history of diverticulitis and he required prior to surgery because of microperforation. Patient is followed up with colorectal surgeon, Dr. Vargas, and they have not wanted to proceed with any further intervention as there is no further imaging abnormalities that were noted. However, patient's had recurrent issues with abdominal pain since that time. Patient has followed up with surgery and has had prior admissions after the surgery for abdominal pain. However, he has required conservative management. Allergies codeine Allergy (Verified 06/10/23 21:35) abdominal pain Home Medications: Ciprofloxacin HCl [Cipro 500 MG Tablet] 500 mg PO BID 7 Days #14 tab 06/14/23 Metronidazole 500 mg PO TID 7 Days #21 tab 06/14/23 - Past Medical/Surgical History Has patient received pneumonia vaccine in the past: Yes Diabetic: No -: Hypertension -: diverticulitis, perforated colon Past Surgical History: Patient denies surgical history -: None Psychosocial/ Personal History: Patient lives at home with family - Social History Smoking Status: Never smoker Alcohol use: No CD- Drugs: No Caffeine use: No Place of Residence: Home Review of Systems 10-point ROS is otherwise unremarkable Physical Examination - Vital Signs Temperature: 98.1 F Blood Pressure: 121/71 Pulse: 74 Respirations: 18 Pulse Ox (%): 97 - Physical Exam General: Alert, In no apparent distress, Oriented x3 HEENT: Atraumatic, PERRLA, Mucous membr. moist/pink, EOMI, Sclerae nonicteric Neck: Supple, 2+ carotid pulse no bruit, No LAD, Without JVD or thyroid abnormality Respiratory: Clear to auscultation bilaterally, Normal air movement Cardiovascular: Regular rate/rhythm, Normal S1 S2 Gastrointestinal: Normal bowel sounds, No tenderness Musculoskeletal: No clubbing, No swelling, No tenderness Integumentary: No rashes Neurological: Normal gait, Normal speech, Normal strength at 5/5 x4 extr, Normal tone, Sensation intact, Cranial nerves 3-12 intact, Normal affect Lymphatics: No axilla or inguinal lymphadenopathy Assessment & Plan - Problems (Diagnosis) (1) Abdominal pain Current Visit: Yes Status: Acute (2) S/P colectomy Current Visit: Yes Status: Acute - Plan -IV antibiotics -IV fluids -Surgery consultation -CBC, CMP, lipase, stool cultures -N.p.o. -Repeat abdominal film -Antiemetics Discharge Plan: Home Plan to discharge in: Greater than 2 days - Advance Directives Does patient have a Living Will: No Does patient have a Durable POA for Healthcare: No - Code Status/Comfort Care Code Status Assessed: Yes Code Status: Full Code Critical Care: No Time Spent Managing PTS Care (In Minutes): 45
--- NOTE | 2024-04-22 14:29 | CON ---
Date of Consultation: 04/22/2024 Reason For Service: Abdominal pain. History Of Present Illness: This is the case of a 34-year-old patient, known by us since May of this year, about a year ago, the patient came to our hospital with diverticulitis and microperforatio n. The patient was treated with IV antibiotics and sent to his colorectal surgeon who performed on h im an elective colectomy at [facility] specifically by Dr. Vargas. The recovery was fine except after some time as per the patient they found a leak on the anastomosis that was treated conservative ly. Then also he says he went back to the colorectal after having abdominal pain and he was found to have an abscess on his abdomen on the right side. He mentioned there was a different way they were offering him to treat this and eventually Dr. Vargas went to [facility] to treat it conservatively with no surgery for that abscess and he recovered from that and the ab scess disappeared. He states he has been having on and off pain for the entire year. He has been vi siting with his colorectal surgeon a few times, but at this moment, there is not much they can do for him. He has not had a colonoscopy since then. He came to the ER recently and he had a CAT scan monik t showed just stools in the colon, but there was no abscess or any free air. I explained to him in he office that even though he has colectomy he still may have some reason for his pain and we cannot even rule out in the future any diverticulitis, which is a surprise for him. Recently, he was placed on p.o. antibiotics, just benefit of the doubt of colitis until a colonoscopy can be done in the ilir r future to try to take a look at the anastomosis, see colitis and see if there is any reason why he has every now and then some spots of red blood in the stools other than hemorrhoids. Apparently he c nissa to the ER this afternoon and I was called silas to see the patient. I am getting out of town. Dr. Hale will be covering for me, but I decided then to come here and at least take a look at him so I can explain to the medical doctors and the rest of the team the sequence of events that I had lazaro sanchez noticing for the last year. He came with nausea and vomiting. CAT scan again in this institutio n is negative. No bleeding. No shortness of breath. No recent traveling out of the country. No fa [place]ald member sick at home. Past Medical History: Includes diverticulitis with microperforation. Social History: He does not smoke. He does not drink alcohol. Family History: Noncontributory. Allergies: NONE. Review of Systems: Nausea and vomiting. No bright red blood per rectum. No active bleeding. Physical Examination: Vital Signs: Reviewed. General: The patient is awake and alert. HEENT: Pupils anicteric. Neck: Supple. Chest: Clear. Abdomen: Generalized mild tenderness. No guarding or rebound. Mildly distended. Rectal: Deferred. Extremities: Good capillary refill. Lab: Blood work shows a WBC count of 12.2 with hemoglobin of 15.9 and platelets of 223. Potassium 3 .6 and BUN is 18. CAT scan of the abdomen and pelvis interpreted by Dr. Carranza as no acute or concerni ng abnormalities seen in the abdomen and pelvis. No evidence of free air or significant intraabdomin al free fluid. No bowel obstruction and no abscess. There are some post surgical changes in the reg ion of the sigmoid colon. Assessment: This is a 34-year-old patient with abdominal pain of unknown origin. This we cannot mart ntify at this moment any surgical pathology. That is why I explained to him the importance of follow ing up with his previous surgeons including colorectal to see if there is anything any light they can show in this case to justify his abdominal pain. A future colonoscopy should be done, although at t his moment, he will not be able to tolerate any bowel prep with his nausea that he has. Whenever he improves from his condition, even though there is no surgical intervention planned tonight, still for his medical issues he is going to be admitted to the hospital for hydration and control of his abdom inal pain. I encouraged him as an outpatient to go back and visit his colorectal surgeons. I menttonia madison to him once again I am going to be out of town. I am going to leave Dr. Hale the one covering me in standby just in case he develops any surgical problems that need to be addressed in this insti tution or transferred out. TIAN/HILARY Voice ID: [id number] Report ID: [id number]
[2024-04-22 17:04] VITALS: BP 129/76; TEMP 98.2
[2024-04-22] MEDS: metroNIDAZOLE 500 MG TABLET PO ONE (19:28)
[2024-04-22] MEDS: levoFLOXacin 500 MG TAB PO ONE (19:28)
--- NOTE | 2024-04-23 18:16 | P.DS ---
Admission Date: 04/21/24 Discharge Date: 04/22/24 Disposition: ROUTINE DISCHARGE Discharge Condition: GOOD Reason for Admission: Abdominal pain Brief History of Present Illness: Patient is a 34-year-old gentleman came to the hospital with abdominal pain. Patient has history of diverticulitis and he required prior to surgery because of microperforation. Patient is followed up with colorectal surgeon, Dr. Vargas, and they have not wanted to proceed with any further intervention as there is no further imaging abnormalities that were noted. However, patient's had recurrent issues with abdominal pain since that time. Patient has followed up with surgery and has had prior admissions after the surgery for abdominal pain. However, he has required conservative management - Physical Exam General: Alert, In no apparent distress, Oriented x3 HEENT: Atraumatic, PERRLA, Mucous membr. moist/pink, EOMI, Sclerae nonicteric Neck: Supple, 2+ carotid pulse no bruit, No LAD, Without JVD or thyroid abnormality Respiratory: Clear to auscultation bilaterally, Normal air movement Cardiovascular: Regular rate/rhythm, Normal S1 S2 Gastrointestinal: Normal bowel sounds, No tenderness Musculoskeletal: No clubbing, No swelling, No tenderness Integumentary: No rashes Neurological: Normal gait, Normal speech, Normal strength at 5/5 x4 extr Lymphatics: No axilla or inguinal lymphadenopathy Hospital Course: Patient is a 34-year-old gentleman came to the hospital with abdominal pain. Patient has history of diverticulitis and he required prior to surgery because of microperforation. Patient is followed up with colorectal surgeon, Dr. Vargas, and they have not wanted to proceed with any further intervention as there is no further imaging abnormalities that were noted. However, patient's had recurrent issues with abdominal pain since that time. Patient has followed up with surgery and has had prior admissions after the surgery for abdominal pain. However, he has required conservative management Discharge medication Ciprofloxacin HCl [Cipro 500 MG Tablet] 500 mg PO BID 7 Days #14 tab 04/22/24 Hydrocodone 5/APAP 325 [[place] 5/325] 1 tab PO Q6H PRN #20 tab 04/22/24 Metronidazole 500 mg PO TID 7 Days #21 tab 04/22/24 predniSONE [Deltasone] 20 mg PO BID #11 tab 04/22/24 Assessment Abdominal pain History of colectomy follow-up with Dr. Vargas after discharge CT of the abdomen pelvis IMPRESSION: No acute or concerning abnormalities seen in the abdomen or pelvis. Continue home medicines as previously prescribed GOAL: Clear understanding of disease process INSTRUCTIONS: Physician Discharge Instructions: -Follow-up with surgery after -Follow-up with PCP in 1 to 2 weeks -Please call Dr. Webb at [phone] if any questions regarding hospital stay -Please call nursing station at [phone] if any nursing or medication questions -Return to the emergency room if symptoms worsen Diet: ADA, low sodium Activity: Fall precautions Vital Signs/Physical Exam: Temp Pulse Resp BP Pulse Ox 98.2 F 62 18 129/76 98 04/22/24 16:00 04/22/24 16:00 04/22/24 16:00 04/22/24 16:00 04/22/24 16:00 Laboratory Data at Discharge: WBC 8.00 thou/uL (4.3-10.9) 04/22/24 06:19 Hgb 14.1 g/dL (13.6-17.9) D 04/22/24 06:19 Hct 41.3 % (39.6-49.0) 04/22/24 06:19 Plt Count 191 thou/uL (152-406) 04/22/24 06:19 Sodium 140 mEq/L (136-145) 04/22/24 06:19 Potassium 3.9 mEq/L (3.5-5.1) 04/22/24 06:19 BUN 24 mg/dL (7-18) H 04/22/24 06:19 Creatinine 1.47 mg/dL (0.70-1.30) H 04/22/24 06:19 Glucose 96 mg/dL (74-106) 04/22/24 06:19 Total Bilirubin 0.8 mg/dL (0.2-1.0) 04/22/24 06:19 AST 13 U/L (15-37) L 04/22/24 06:19 ALT 22 U/L (16-61) 04/22/24 06:19 Alkaline Phosphatase 66 U/L (45-117) 04/22/24 06:19 Triglycerides 104 mg/dL (<150) 04/22/24 06:19 Cholesterol 119 mg/dL (<200) 04/22/24 06:19 HDL Cholesterol 34 mg/dL (40-60) L 04/22/24 06:19 Cholesterol/HDL Ratio 3.50 04/22/24 06:19 Lipase 37 U/L (13-75) 04/21/24 11:30 Home Medications: Ciprofloxacin HCl [Cipro 500 MG Tablet] 500 mg PO BID 7 Days #14 tab 04/22/24 Hydrocodone 5/APAP 325 [[place] 5/325] 1 tab PO Q6H PRN #20 tab 04/22/24 Metronidazole 500 mg PO TID 7 Days #21 tab 04/22/24 predniSONE [Deltasone] 20 mg PO BID #11 tab 04/22/24 New Medications: Ciprofloxacin HCl [Cipro 500 MG Tablet] 500 mg PO BID 7 Days #14 tab Metronidazole 500 mg PO TID 7 Days #21 tab Hydrocodone 5/APAP 325 [[place] 5/325] 1 tab PO Q6H PRN #20 tab PRN Reason: Pain predniSONE [Deltasone] 20 mg PO BID #11 tab Physician Discharge Instructions: -DC IV and DC home -Follow-up with PCP in 1 to 2 weeks -Follow-up with GI/General Surgery, Dr. Shelton in 1 to 2 weeks -Please call Dr. Webb at [phone] if any questions regarding hospital stay -Please call nursing station at [phone] if any nursing or medication questions -Return to the emergency room if symptoms worsen Diet: soft Activity: Fall precautions Followup: Isidro Shea MD [Primary Care Provider] - Gokul Shelton MD [ACTIVE - CAN ADMIT] -
== END 2024-04-22 20:45 | disposition home or self-care (01) | DRG 392 ==
LOC: ER 10:35 → ERHOLD 14:56 → 2ND 17:08
PROVIDERS: ADMIT Hospitalist; ATTEND Hospitalist
DX: R10.9 Unspecified abdominal pain (principal); Z88.5 Allergy status to narcotic agent; Z79.52 Long term (current) use of systemic steroids; Z90.49 Acquired absence of other specified parts of digestive tract; Z79.899 Other long term (current) drug therapy
CPT/HCPCS: 36415; 74177; 80053; 80061; 83690; 85025; 99285; J2270; J2405; J2550; J7030; Q9967

== ENCOUNTER 2024-05-04 08:24 | Day surgery (SDC) | payer OTHER ==
--- NOTE | 2024-04-23 05:28 | P.DS ---
Admission Date: 04/21/24 Discharge Date: 04/22/24 Disposition: ROUTINE DISCHARGE Discharge Condition: GOOD Brief History of Present Illness: Patient is a 34-year-old gentleman came to the hospital with abdominal pain. Patient has history of diverticulitis and he required prior to surgery because of microperforation. Patient is followed up with colorectal surgeon, Dr. Vargas, and they have not wanted to proceed with any further intervention as there is no further imaging abnormalities that were noted. However, patient's had recurrent issues with abdominal pain since that time. Patient has followed up with surgery and has had prior admissions after the surgery for abdominal pain. However, he has required conservative management - Physical Exam General: Alert, In no apparent distress, Oriented x3 HEENT: Atraumatic, PERRLA, Mucous membr. moist/pink, EOMI, Sclerae nonicteric Neck: Supple, 2+ carotid pulse no bruit, No LAD, Without JVD or thyroid abnormality Respiratory: Clear to auscultation bilaterally, Normal air movement Cardiovascular: Regular rate/rhythm, Normal S1 S2 Gastrointestinal: Normal bowel sounds, No tenderness Musculoskeletal: No clubbing, No swelling, No tenderness Integumentary: No rashes Neurological: Normal gait, Normal speech, Normal strength at 5/5 x4 extr Lymphatics: No axilla or inguinal lymphadenopathy Hospital Course: Patient is a 34-year-old gentleman came to the hospital with abdominal pain. Patient has history of diverticulitis and he required prior to surgery because of microperforation. Patient is followed up with colorectal surgeon, Dr. Vargas, and they have not wanted to proceed with any further intervention as there is no further imaging abnormalities that were noted. However, patient's had recurrent issues with abdominal pain since that time. Patient has followed up with surgery and has had prior admissions after the surgery for abdominal pain. However, he has required conservative management Discharge medication Ciprofloxacin HCl [Cipro 500 MG Tablet] 500 mg PO BID 7 Days #14 tab 04/22/24 Hydrocodone 5/APAP 325 [[place] 5/325] 1 tab PO Q6H PRN #20 tab 04/22/24 Metronidazole 500 mg PO TID 7 Days #21 tab 04/22/24 predniSONE [Deltasone] 20 mg PO BID #11 tab 04/22/24 Assessment Abdominal pain History of colectomy follow-up with Dr. Vargas after discharge CT of the abdomen pelvis IMPRESSION: No acute or concerning abnormalities seen in the abdomen or pelvis. Continue home medicines as previously prescribed GOAL: Clear understanding of disease process INSTRUCTIONS: Physician Discharge Instructions: -Follow-up with surgery after -Follow-up with PCP in 1 to 2 weeks -Please call Dr. Webb at [phone] if any questions regarding hospital stay -Please call nursing station at [phone] if any nursing or medication questions -Return to the emergency room if symptoms worsen Diet: ADA, low sodium Activity: Fall precautions Home Medications: Ciprofloxacin HCl [Cipro 500 MG Tablet] 500 mg PO BID 7 Days #14 tab 04/22/24 Hydrocodone 5/APAP 325 [[place] 5/325] 1 tab PO Q6H PRN #20 tab 04/22/24 Metronidazole 500 mg PO TID 7 Days #21 tab 04/22/24 predniSONE [Deltasone] 20 mg PO BID #11 tab 04/22/24 Diet: AHA Activity: Fall precautions Followup: Gokul Shelton MD [Primary Care Provider] - Time spent managing pt's care (in minutes): 45
[2024-05-04] MEDS: Ringers Lactate 1,000 ML IV ONE (08:45)
[2024-05-04] MEDS ORDERED: propofoL 200 MG/20 ML VIAL IV ONE ×2 (09:54→09:55)
[2024-05-04] MEDS ORDERED: LIDOCAINE 1% MPF 30 ML VIAL ONE (09:54)
[2024-05-04 10:26] VITALS: TEMP 97
[2024-05-04 10:27] VITALS: O2SAT 100
[2024-05-04 10:28] VITALS: BP 136/66
== END 2024-05-04 10:25 | disposition home or self-care (01) ==
LOC: OR 08:24
PROVIDERS: ATTEND Surgery
PROC: 0DJD8ZZ Inspection of Lower Intestinal Tract, Via Natural or Artificial Opening Endoscopic (ICD-10-PCS; principal; 2024-05-04 09:15)
DX: K62.5 Hemorrhage of anus and rectum (principal); K64.8 Other hemorrhoids; K64.4 Residual hemorrhoidal skin tags; K57.92 Diverticulitis of intestine, part unspecified, without perforation or abscess without bleeding; Z87.19 Personal history of other diseases of the digestive system; Z90.49 Acquired absence of other specified parts of digestive tract
CPT/HCPCS: 45378; J2704 ×2; J2003; J7120